=== PATIENT | female | born 1990 | race Caucasian/White ===

== ENCOUNTER 2024-04-30 08:03 | Emergency (ER) | payer BC, SELFPAY ==
[2024-04-30 08:09] VITALS: BP 129/79; PULSE 85; RESP 18; TEMP 37.4; O2SAT 100
--- NOTE | 2024-04-30 08:17 | ED_ITS ---
HPI - Eye Problem General Chief complaint: Eye Problems Stated complaint: throat/right eye History of Present Illness HPI Narrative: Patient presents with the right eye problem itchy redness slight drainage to the corner of her eye. Does not were contacts no vision problems vision 2020 both eyes. With corrective glasses. Related Data Home Medications ?Medication ?Instructions ?Recorded ?Confirmed ?Last Taken ?Type sertraline 100 mg tablet mg 04/30/24 Unknown History Allergies Allergy/AdvReac Type Severity Reaction Status Date / Time No Known Allergies Allergy Verified 04/30/24 08:14 Review of Systems Review of Systems: CONSTITUTIONAL: Denies chills, or sweats. Reports fever and generalized body aches EYES: Denies visual changes, redness, or discharge. ENT: Denies otalgia. Reports nasal congestion runny nose and sore throat CARDIOVASCULAR: Denies chest pain, palpitations, or edema. RESPIRATORY: Denies dyspnea. Reports occasional cough GASTROINTESTINAL: Denies abdominal pain, nausea, vomiting, or diarrhea. GENITOURINARY: Denies dysuria or hematuria. SKIN: Denies rash or itching. MUSCULOSKELETAL: Denies back pain, joint pain, or myalgia. Reports generalized body aches NEUROLOGIC: Denies headache, numbness, or weakness. PSYCHIATRIC: Denies anxiety or depression. PMFSH Comments At time of signature, agree with nursing past medical, surgical, social and family history. There is no relevant family history pertinent to the presenting complaint Exam Narrative: The patient is a well-developed, well-nourished in no acute distress. SKIN: Skin is warm and dry without erythema, swelling or exudate. There is good turgor. No tenting. HEAD: Atraumatic. Normocephalic. No temporal or scalp tenderness. EYES: Moist and bright. Sclera and conjunctivae normal. No discharge. PERRLA. Extraocular motions intact. Gross visual acuity intact. EARS: Pinna is normal shape and contour. Clear external auditory canals. TM pearly gomez with good cone of light, no erythema or suppuration. Bilateral cerumen noted no gross hearing deficit. NOSE: pink, moist mucosa with good air movement. Clear rhinorrhea without nasal flaring. Septum midline. Mouth: moist mucous membranes. THROAT; mild erythema noted to posterior oropharynx with moderate postnasal drainage. Without exudate or ulceration.. Uvula midline. Normal movement of soft palate. NECK: Supple and nontender with full range of motion without discomfort. No meningeal signs. LUNGS: Equal and bilateral breath sounds without wheezes, rales or rhonchi. CHEST: The chest wall is without retractions or use of accessory muscles. HEART: Has a regular rate and rhythm without murmur, gallops, click or rub. ABDOMEN: Soft, nontender with positive active bowel sounds. No rebound tenderness. EXTREMITIES: Without cyanosis, clubbing or edema. Equal 2+ distal pulses and 2 second capillary refill noted. NEUROLOGIC: alert, active, . The patient moves all extremities with normal muscle strength. Normal muscle tone is noted. Normal coordination is noted. NO focal neurological findings noted. Eyes: Conjunctivae: conjunctival abnormality right conjunctival injection and discharge purulent Course Course Level of Care: Express Care Visit Vital Signs Vital signs: Vital Signs Temperature 37.4 C 04/30/24 08:09 Pulse Rate 85 04/30/24 08:09 Respiratory Rate 18 04/30/24 08:09 Blood Pressure 129/79 04/30/24 08:09 Pulse Oximetry 100 04/30/24 08:09 Oxygen Delivery Room Air 04/30/24 08:09 Temperature 37.4 C 04/30/24 08:09 Pulse Rate 85 04/30/24 08:09 Respiratory Rate 18 04/30/24 08:09 Blood Pressure 129/79 04/30/24 08:09 Pulse Oximetry 100 04/30/24 08:09 Oxygen Delivery Room Air 04/30/24 08:09 Discharge Plan Discharge Clinical Impression: Bacterial conjunctivitis Patient Disposition: Home, Self-Care Condition: Stable Instructions: Conjunctivitis (ED) Additional Instructions: Conjunctivitis is spread by [id number]-[id number] contact or by touching a contaminated surface. You can use artificial tears, cold and warm compresses-use, different compress for each eye, and increase hygiene such as hand-washing. Do not wear contacts for 1 week, if applicable. Do not return for 24 hours to daycare, school, workplace for 24 hours after first antibiotic dose. Change bedding. follow up with eye doctor in 24-48 hours -If you have any worsening of symptoms or any other concerns please go to the ED immediately. Patient Language: Luxembourger Prescriptions: New ofloxacin [Ocuflox] 0.3 % drops 2 drp RIGHT EYE QID Qty: 5 0RF fluticasone propionate 50 mcg/actuation spray,suspension 2 spray NASAL DAILY 14 Days Qty: 9.9 0RF Rx Instructions: administer into each nostril Zyrtec 10 mg capsule 10 mg PO DAILY 14 Days Qty: 14 0RF No Action sertraline 100 mg tablet Follow-up/Referrals: PHYSICIAN NOT ON STAFF,NONSTAFF [Primary Care Provider] -
--- OUTSIDE RECORDS SUMMARY | 2024-05-04 16:50 | XMS_ITS | Referral Summary ---
Author Organization [facility] Address [address] [place] [address] Care Team Providers Care Nuclear Operator Name Role Phone Deb Montenegro MD Primary Care Provider [phone] Source Comments [facility],non-owned Affiliates and Associated Physician Practices is amultiple site organization consisting of ambulatory clinics and hospital sitesin [place], [place], [place] and [place]. This disclosure is being madepursuant to the Care Everywhere program and may not contain all information available regarding this patient. Last updated 18.[facility] Encounters Date Type Department Care Team Description 04/21/2024 Telephone [facility] Medicine [address] [place] [address] [address] [place] [phone] Flaco Rosales MD Surgery Scheduling 04/18/2024 Refill [facility] [address] [facility] [place] [place] [address] Deb Montenegro MD Refill Request 04/17/2024 Telephone [facility] [address] [facility] [place] [place] [phone] Flaco Rosales MD Appointment 04/05/2024 3:15 PM CENTRIFUGAL SUPERVISOR Office Visit [facility] [address] [facility] [address] [place] [phone] Flaco Rosales MD Well woman exam with routine gynecological exam (Primary Dx); Mass of lower outer quadrant of left breast from Last 3 Months Allergies No known active allergies Medications * Be aware that medications may not be up to date on this document. Alwaysverify current medications with the patient. Medication Sig Dispensed Refills Start Date End Date Status Multiple Vitamins-Mineral s (MULTIVITAMIN ADULT PO) 1 gummy vitamin daily Active dicyclomine (Bentyl) 10 MG capsuleIndicatio ns:Nausea and vomiting, unspecified vomiting type Take 1 (one) capsule by mouth 4 times daily 120 capsule 1 05/19/2022 Active Additional Information Patient not taking.Reported on 04/05/2024 Loryna 3-0.02 MG tablet TAKE ONE TABLET BY MOUTH DAILY 1 packet 05/21/2023 Active Additional Information Patient not taking.Reported on 04/05/2024 sertraline (Zoloft) 100 MG tabletIndication s:CASSIDY (generalized anxiety disorder) Take 1 (one) tablet by mouth once daily 90 tablet 04/19/2024 Active sertraline (Zoloft) 100 MG tabletIndication s:CASSIDY (generalized anxiety disorder) Take 1 (one) tablet by mouth once daily 90 tablet 1 05/19/2023 04/19/20 24 Discontinued Active Problems Problem Noted Date Diagnosed Date Well woman exam with routine gynecological exam 04/05/2024 Overview (04/05/2024): Complaints: left breast lesion Contraception: OCP's, wants permanent sterilization Pap Results No recent doc pap Mammogram Results No previous mammogram Assessment & Plan (04/05/2024 3:18 PM CENTRIFUGAL SUPERVISOR): Reviewed cervical cancer pathophysiology as well as screening and prevention guidelines Pap collected When discussing contraceptive options, the patient expressed her strong desire to more forward with permanent sterilization. I reviewed with her the surgical approach, which, in accordance with ACOG recommendations, involves removing both tubes in their entirety as a means to reduce ovarian cancer incidence while also providing permanent sterilization. I extensively reviewed with the patient the permanence and irreversibility of this procedure thus preventing any future, natural conception. Questions and concerns were elicited and addressed. The patient verbalized understanding of the procedure and its permanence, and again expressed her intentions to proceed with a bilateral salpingectomy. Will obtain a dx mammo with U/S for breast complaint Contraceptive education 05/15/2022 Overview (05/15/2022): Patient wants to discuss contraceptive options She is currently on Junel, but is having mood issues She is or is not: is sexually active Her periods are regular Assessment & Plan (05/15/2022 12:46 PM CENTRIFUGAL SUPERVISOR): The patient was counseled regarding all options for contraception, including LARCs After consideration, the patient wishes to proceed with Hanane Rx sent Personal history of kidney stones 05/13/2022 Nausea and vomiting 05/13/2022 CASSIDY (generalized anxiety disorder) 05/13/2022 H/O repair of patent ductus arteriosus Overview (05/13/2022): at age 5 S/P repair of coarctation of aorta 05/13/2022 Overview (05/13/2022): at age 5 Normal , first 12/24/2014 Gestational hypertension 12/24/2014 Scoliosis 09/04/2014 Immunizations Name Administration Dates Next Due INFLUENZA VACCINE, QUADR. (F LUZONE; FLULAVAL; FLUARIX; AFLURIA QUADRIVALENT; 6MO+), 0.5 ML (IIV4) 03/14/2018 TDAP (7yrs+) 12/26/2014 iNFLUENZA VACCINE, RECOM-TORRES, QUADR. (FLUBLOCK QUADRIVALENT; 18Y+) (RIV4) 03/01/2019 Social History Tobacco Use Types Packs/Day Years Used Date Smoking Tobacco: Every Day Cigarettes 0.3 6 Smokeless Tobacco: Never Tobacco Cessation:Ready to Q uit: Not Asked; Counseling Given: Not Answered Comments:3 cigarettes daily Alcohol Use Standard Drinks/Week Comments No 0 (1 standard drink = 0.6 oz pur e alcohol) PHQ-2 Answer Date Recorded Patient Health Questionnaire-2 Score 0 04/04/2024 Sex and Gender Information Value Date Recorded Sex Assigned at Not on file Gender Identity Not on file Sexual Orientation Not on file Last Filed Vital Signs Vital Sign Reading Time Taken Comments Blood Pressure 120/76 04/05/2024 2:59 PM CENTRIFUGAL SUPERVISOR Pulse 103 07/15/2022 8:20 AM CENTRIFUGAL SUPERVISOR Temperature 36.4 ??C (97.6 ??F) 07/15/2022 8:20 AM CS T Respiratory Rate 20 03/07/2018 3:42 PM CDT Oxygen Saturation 99% 07/15/2022 8:20 AM CENTRIFUGAL SUPERVISOR Inhaled Oxygen Concentration - - Weight 53.1 kg (117 lb) 04/05/2024 2:59 PM CENTRIFUGAL SUPERVISOR Height 167.6 cm (5' 6 ) 04/05/2024 2:59 PM CENTRIFUGAL SUPERVISOR Body Mass Index 18.88 04/05/2024 2:59 PM CENTRIFUGAL SUPERVISOR Functional Status Functional Status Response Date of Assess ment Is person deaf or have serious hearing difficult y? No 12/24/2014 Is person blind or have serious difficulty seein g? No 12/24/2014 Does person have serious dif ficulty walking/climbing stairs? No 12/24/2014 Does person have difficulty dressing/bathing? No 12/24/2014 Does person have difficulty doing errands alone? No 12/24/2014 Cognitive Status Response Date of Assessm ent Does person have difficulty concentrating/remembering/making decisions? No 12/24/2014 Plan of Treatment Upcoming Encounters Date Type Department Care Team (Late st Contact Info) Description 05/12/2024 9:30 AM CENTRIFUGAL SUPERVISOR Appointment [facility] Breast [address] [place] [address] Flaco Rosales MD [address] [place] [phone] 05/24/2024 7:00 AM CENTRIFUGAL SUPERVISOR Procedure visit [facility] [address] [place] [phone] 06/07/2024 9:45 AM CENTRIFUGAL SUPERVISOR Office Visit [facility] [address] [place] [phone] Flaco Rosales MD [address] [place], [place] [address], [place] [phone] 07/11/2024 12:00 PM CENTRIFUGAL SUPERVISOR Video Visit [facility] - Family Medicine [address] [facility] [place] [place] [address] Deb Montenegro MD [address] [place] [phone] Procedures Procedure Name Priority Date/Time Associated Diagnosis Comments PAP IG LB RFLX HPV APTIMA ASCU Routine 04/05/2024 3:37 PM CENTRIFUGAL SUPERVISOR Well woman exam with routine gynecological exam HIV-1 HIV-2 ANTIBODY + HIV P24 AG PANEL Routine 05/14/2022 11:17 AM CENTRIFUGAL SUPERVISOR Encounter for screening for HIV HEPATITIS C ANTIBODY Routine 05/14/2022 11:16 AM CENTRIFUGAL SUPERVISOR Encounter for hepatitis C screening test for low risk patient from Last 3 Months or Most Recently Relevant to Health Maintenance Results * PAP IG LB RFLX HPV APTIMA ASCU (04/05/2024 3:37 PM CENTRIFUGAL SUPERVISOR) Diagnosis Comment [facility] ACCOUNT BILL Comment:NEGATIVE FOR INTRAEP ITHELIAL LESION OR MALIGNANCY. Specimen Adequacy Comment [facility] ACCOUNT BILL Comment: Satisfactory for evaluation. ??Endocervical and/or squamous metaplastic cells (endocervical component) are present. Clinician Provided ICD10 Comment [facility] ACCOUNT BILL Comment:Z01.419 Performed by Comment [facility] ACCOUNT BILL Comment:Brown Molina totechnologist Comment . [facility] ACCOUNT BILL Note Comment [facility] ACCOUNT BILL Comment: The Pap smear is a screening test designed to aid in the detection of premalignant and malignant conditions of the uterine cervix. ??It is not a diagnostic procedure and should not be used as the sole means of detecting cervical cancer. ??Both false-positive and false-negative reports do occur. IGLBP CPT Code Automation Comment [facility] ACCOUNT BILL Comment: This liquid based ThinPrep(R) pap test was screened with the use of an image guided system. Note Comment [facility] ACCOUNT BILL Comment: The HPV DNA reflex criteria were not met with this specimen result therefore, no HPV testing was performed. Pathology/Cytolog y PART OF UTERINE CERVIX / Unknown 04/05/2024 3:37 PM CENTRIFUGAL SUPERVISOR 04/05/2024 Comment:Cervix Release to pa t Narrative [facility] ACCOUNT BILL - 04/12/2024 11:13 AM CENTRIFUGAL SUPERVISOR Performed at: ??01 - [facility] [place] [place], [place] ??[id number] Parts Clerk Plant Maintenance: Keena Montejo MD, Phone: ??[phone] Specimen Comment: [id number] Specimen Comment: No. of containers..01 ThinPrep Vial Flaco Rosales MD LAB - PATHOLOGY/CYTO LOGY ORDERABLES Performing Organization Address City/[facility]/ZIP Co de Phone Number [facility] ACCOUNT BILL [address] [place] [address] * HIV-1 HIV-2 ANTIBODY + HIV P24 AG PANEL (05/14/2022 11:17 AM CENTRIFUGAL SUPERVISOR) HIV Screen 4th Generation w Reflex Non Reactive Non Reactive [facility] ACCOUNT BILL Comment: HIV Negative HIV-1/HIV-2 antibodies and HIV-1 p24 antigen were NOT detected. There is no laboratory evidence of HIV infection. FASTING Blood BLOOD SPECIMEN / Unknown 05/14/2022 11:17 AM CENTRIFUGAL SUPERVISOR 05/14/2022 Narrative Resulting Agency Comment Lab Testing performed at: [facility] [address] [facility] ??[facility] [phone] Deb Montenegro MD LAB - CHEMISTRY CASSY SMITH Performing Organization Address [facility] Co de Phone Number [facility] ACCOUNT BILL [address] [place] [address] * HEPATITIS C ANTIBODY (05/14/2022 11:16 AM CENTRIFUGAL SUPERVISOR) Hepatitis C Antibody Non Reactive Non Reactive [facility] ACCOUNT BILL Comment: Non Reactive - Antibodies to Hepatitis C virus (HCV) were no t detected, result does not exclude early acute HCV infection. FASTING Blood BLOOD SPECIMEN / Unknown 05/14/2022 11:16 AM CENTRIFUGAL SUPERVISOR 05/14/2022 Narrative Resulting Agency Comment Lab Testing performed at: [facility] [address] [facility] ??[facility] [phone] Deb Montenegro MD LAB - CHEMISTRY CASSY SMITH [facility] ACCOUNT BILL [address] [place] [address] from Last 3 Months or Most Recently Relevant to Health Maintenance Advance Directives * Full Code (Latest Code Status on File) Date Activated Date Inactivated Comments 12/25/2014 9:19 AM 12/28/2014 1:18 PM * Full Code Date Activated Date Inactivated Comments 12/24/2014 10:06 AM 12/25/2014 9:19 AM Care Teams Nuclear Operator Relationship Specialty Start Date End Date Deb Montenegro MD [address] [place] [phone] PCP - General Family Medicine 05/13/22
--- OUTSIDE RECORDS SUMMARY | 2024-05-04 16:50 | XMS_ITS | Encounter Summary ---
Author Organization [facility] Address [address] [place] [address] Care Team Providers Care Estimator Binding Name Role Phone Evelyn Beach Mylene RAPHAEL-EMBEDDED CASE MANAGER Primary Care Provider [phone] Reason for Referral * Procedure (Routine) - Closed Specialty Diagnoses / Procedures Referred By Contac t Referred To Contact Cardiology Diagnoses Coarctation of aorta (preductal) (postductal) (HCC) Procedures EKG 12-LEAD Volodymyr Salmon MD [address] [facility] [facility] [address] [place] [address] Referral ID Status Reason Start Date Expiration Date Visits Re quested Visits Authorized [id number] Closed 03/20/2019 09/16/2019 1 1 SPECIALTY SERVICES MANAGER Reason for Visit * Reason Comments Establish Care Encounter Details Date Type Department Care Team (Late st Contact Info) Description 03/20/2019 9:30 AM AUTO SPECIALTY SERVICES MANAGER Office Visit [facility] [address] [facility] [place] [address] Volodymyr Salmon MD [address] [facility] [facility] [address] [place] [address] Coarctation of aorta (preductal) (postductal) (HCC) (Primary Dx); S/P repair of PDA; Chest pain, unspecified type Social History Tobacco Use Types Packs/Day Years Used Date Smoking Tobacco: Every Day Cigarettes 0.3 6 Smokeless Tobacco: Never Tobacco Cessation:Ready to Q uit: Yes; Counseling Given: Yes Comments:3 cigarettes daily Alcohol Use Standard Drinks/Week Comments No 0 (1 standard drink = 0.6 oz pur e alcohol) Sex and Gender Information Value Date Recorded Sex Assigned at Not on file Gender Identity Not on file Sexual Orientation Not on file documented as of this encounter Last Filed Vital Signs Vital Sign Reading Time Taken Comments Blood Pressure 122/86 03/20/2019 9:43 AM AUTO SPECIALTY SERVICES MANAGER Pulse 108 03/20/2019 9:43 AM AUTO SPECIALTY SERVICES MANAGER Temperature 36.9 ??C (98.5 ??F) 03/20/2019 9:43 AM CS T Respiratory Rate - - Oxygen Saturation 93% 03/20/2019 9:43 AM AUTO SPECIALTY SERVICES MANAGER Inhaled Oxygen Concentration - - Weight 64 kg (141 lb) 03/20/2019 9:43 AM AUTO SPECIALTY SERVICES MANAGER Height 165.1 cm (5' 5 ) 03/20/2019 9:43 AM AUTO SPECIALTY SERVICES MANAGER Body Mass Index 23.46 03/20/2019 9:43 AM AUTO SPECIALTY SERVICES MANAGER documented in this encounter Functional Status Functional Status Response Date of [...] person have difficulty concentrating/remembering/making decisions? No 12/24/2014 documented as of this encounter Patient Instructions * Patient Instructions* Sena Velazquez LPN - 03/20/2019 10:11 AM AUTO SPECIALTY SERVICES MANAGER Per Dr. Salmon, Your CTA of chest is scheduled for : 03/29/19 [facility] Patient Entrance Arrival time: 915 am ?? Nothing to eat or drink 4 hours prior to test. ?? Force fluids the day before the test. Your Echocardiogram has been scheduled to follow. No special preparations needed. If you need to reschedule your testing, you can call [phone]. After you have rescheduled your test, call our office at [phone] to notify our office of your new test date and time. Follow up in 1-2 weeks after testing. SPECIALTY SERVICES MANAGER documented in this encounter Progress Notes * Volodymyr Salmon MD - 03/20/2019 9:56 AM CST Images from the original note were not included. [facility] Volodymyr Salmon MD 03/20/2019 Karla Castaneda 29 year old female 1990 REQUESTING PROVIDER: Evelyn Beach APRN-EMBEDDED CASE MANAGER CHIEF COMPLAINT: Karla Castaneda is a 29 year old female who presents for follow up of the below complaints: Coarctation of aorta (preductal) (postductal) S/P repair of PDA Chest pain, unspecified type HISTORY: She has a history of surgical repair of a coarctation of the aorta along with ligation of a patent ductus arteriosus who presents to reestablish care. She exercises on a regular basis and is able to do so without chest pain shortness of breath or symptoms of claudication. She reports, however, that a couple of weeks ago while lying in bed she developed a sharp stabbing pain underneath her left breast that lasted for approximately 30 sec without aggravating alleviatingcircumstances nor other any associated symptoms. She has not had a recurrence. REVIEW OF SYSTEMS: A 14 point review of systems was reviewed and was negative except that mentioned in the HPI and thefollowing: Night sweats, she wears glasses, irritable bowel syndrome. No current facility-administered medications for this visit. Prior to Admission medications Medication Sig Start Date End Date Taking? Authorizing Provider MV-Min-Fe Fum-FA-DHA ( 1 PO) Take 1 Tab by mouth once daily. Yes Historical Provider, docusate sodium (COLACE) 100 MG capsule Take 100 mg by mouth once daily. Historical Provider, No Known Allergies Past Medical History: Diagnosis Date ??? H/O repair of patent ductus arteriosus at age 5 ??? Kidney stones last time she passed one was one year ago ??? S/P repair of coarctation of aorta at age 5 ??? Scoliosis Past Surgical History: Procedure Laterality Date ??? OTHER SURGERY 1993 open heart surgery to repair PDA and coarctation of aorta Social History Socioeconomic History ??? Marital status: Spouse name: Not on file ??? Number of children: Not on file ??? Years of education: Not on file ??? Highest education level: Not on file Occupational History ??? Not on file Social Needs ??? Financial resource strain: Not on file ??? Food insecurity: Worry: Not on file Inability: Not on file ??? Transportation needs: Medical: Not on file Non-medical: Not on file Tobacco Use ??? Smoking status: Current Every Day Smoker Packs/day: 0.25 Years: 6.00 Pack years: 1.50 Types: Cigarettes ??? Smokeless tobacco: Never Used ??? Tobacco comment: 3 cigarettes daily Substance and Sexual Activity ??? Alcohol use: No ??? Drug use: No ??? Sexual activity: Not on file Lifestyle ??? Physical activity: Days per week: Not on file Minutes per session: Not on file ??? Stress: Not on file Relationships ??? Social connections: Talks on phone: Not on file Gets together: Not on file Attends catholic service: Not on file Active member of club or organization: Not on file Attends meetings of clubs or organizations: Not on file Relationship status: Not on file ??? Intimate partner violence: Fear of current or ex partner: Not on file Emotionally abused: Not on file Physically abused: Not on file Forced sexual activity: Not on file Other Topics Concern ??? Special Diet Not Asked Social History Narrative ??? Not on file There is no family history of premature coronary artery disease in first degree relatives. EXAMINATION: BP 122/86 (BP SITE: LEFT ARM, BP POSITION: SITTING, BP CUFF SIZE: 11) Pulse 108 Temp 98.5 ??F (36.9??C) (Oral) Ht 1.651 m (5' 5 ) Wt 64 kg (141 lb) SpO2 93% BMI 23.46 kg/m2 CONSTITUTIONAL: Well developed female in no acute distress. EYES: Extra ocular movements intact, no conjunctival erythema or exudate, pupils are reactive to light. She is wearing glasses. ENTM: External auditory canals are normal, nares are moist and without exudate, throat is without exudate or erythema, oral mucosa is moist. NECK: No thyromegaly or lymphadenopathy. CARDIO: S1S2, RRR, no murmurs, gallops, or rubs, no JVD, no carotid bruits. There are strong bilateral radial artery and femoral artery pulses. RESP: Lungs clear to auscultation bilaterally. Chest wall is normal to palpation and percussion. The respiratory effort is normal. ABDOMEN: Soft, non-tender to palpation, normal bowel sounds. MUSCULOSKELETAL: No kyphosis or scoliosis. SKIN: No rashes or stasis ulcers. EXTREMITIES: No clubbing, cyanosis, or edema. PSYCH: Normal mood and affect, alert and oriented. DATA REVIEW: Recent Labs Component Name 03/07/18 1616 12/26/14 0614 12/25/14 0423 WBC 7.6 17.2* 8.0 HGB 15.5 10.8* 10.2* HCT 45.1* 32.4* 30.6* PLTCOUNT 235 215 222 Recent Labs Component Name 03/07/18 1616 12/25/14 0423 12/24/14 1017 SODIUM 137 136 136 POTASSIUM 3.9 3.7 4.1 CHLORIDE 109* 108* 109* CO2 17* 19* 19* BUN 10.9 8.0* 8.1* CREATININE 0.74 0.65 0.66 GLUCOSE 87 75 78 ECHO 09/14/14: - Clinical question: History of aortic coarctation repair - Left ventricle: Size was normal. Systolic function was normal. Ejection fraction was estimated to be 60 %. There were no regional wall motion abnormalities. - Aortic valve: The valve was trileaflet. Leaflets exhibited normal cuspal separation. There was trace aortic valve regurgitation. - Aorta, systemic arteries: The ascending aorta was normal in size. The aortic arch was normal in size. There was no evidence for dissection. There was no evidence for aneurysm. There was residual coarctation following surgical repair. The gradient was 29 mmHg. Clinical question: History of aortic coarctation repair EKG, performed in the office June 20, 2018, reviewed: Normal sinus rhythm. Records reviewed from her previous border inspector documenting her past surgical history as well as a recommendation that she follow-up with a border inspector to monitor her for the development hypertension as well as her opinion that she did not need bacterial endocarditis prophylaxis. ASSESSMENT AND PLAN: Coarctation of the aorta, status post repair: She is concerned about her chest discomfort perhaps being a sign that there is a problem with cor taken repair therefore a CT angiogram of the aorta has been requested for further evaluation and she has agreed. Her blood pressure in her left arm was 116/82, blood pressure right arm 124/84. She will notify us for recurrence. Status post PDA repair: An echocardiogram has been requested for further evaluation and she has agreed. Chest pain: A CT angiogram the chest has been requested for further evaluation she has agreed. Smoking: We will discuss cessation at follow-up. She will follow up after testing. Volodymyr Salmon MD Residential Substance Abuse Counselor [facility] [place] 03/20/2019 10:19 AM SPECIALTY SERVICES MANAGER documented in this encounter Plan of Treatment Upcoming Encounters Date Type Department Care Team (Late st Contact Info) Description 05/12/2024 9:30 AM AUTO SPECIALTY SERVICES MANAGER Appointment [address] [place] [address] Flaco Rosales MD [address] [place] [phone] 05/24/2024 7:00 AM AUTO SPECIALTY SERVICES MANAGER Procedure visit [facility] - INTERNET ARCHITECT [address] [place] [phone] 06/07/2024 9:45 AM AUTO SPECIALTY SERVICES MANAGER Office Visit [facility] - INTERNET ARCHITECT [address] [place] [address] Flaco Rosales MD [address] [place] [phone] 07/11/2024 12:00 PM AUTO SPECIALTY SERVICES MANAGER Video Visit [facility] - Family Medicine [address] [facility] [address] [place] [place] [address] Deb Montenegro MD [address] [phone] documented as of this encounter Procedures Procedure Name Priority Date/Time Associated Diagnosis Comments EKG 12-LEAD Routine 03/20/2019 Coarctation of aorta (preductal) (postductal) ([facility]) documented in this encounter Results * EKG 12-LEAD (03/20/2019) Volodymyr Salmon MD ECG ORDERABLES documented in this encounter Visit Diagnoses Diagnosis Coarctation of aorta (preductal) (postductal) (HCC)- Primary Coarctation of aorta (preductal) (postductal) S/P repair of PDA Other postprocedural status Chest pain, unspecified type documented in this encounter Care Teams Estimator Binding Relationship Specialty Start Date End Date Evelyn Beach, CAR BODY MECHANIC-EMBEDDED CASE MANAGER [address] [place] [address] PCP - General Nurse Practitioner 03/07/18 05/12/22 documented as of this encounter
--- OUTSIDE RECORDS SUMMARY | 2024-05-04 16:50 | XMS_ITS | Encounter Summary ---
Author Organization [facility] Address [address] [place] [address] Care Team Providers Care Supply Chain Generalist Name Role Phone Sena Moreno [facility] Primary Care Provider [phone] Reason for Visit * Auth/Cert - Closed Specialty Diagnoses / Procedures Referred By Contac t Referred To Contact Diagnoses Hypertension in , antepartum, third trimester (HCC) Referral ID Status Reason Start Date Expiration Date Visits Re quested Visits Authorized [id number] Closed 1 1 Encounter Details Date Type Department Care Team (Late st Contact Info) Description 12/25/2014 4:48 PM CDT Anesthesia Event [facility] [address] [place] [address] Fahad Coles MD [address] [place] [address] Anesthesia Record Procedure Summary Procedure Name Responsible Anesthesiologist Anesthesia Start Time Anesthesia Stop Time EPIDURAL BLOCK Fahad Coles MD 12/25/14 164 8 12/25/14 2351 Events Date Time Event Comment 12/25/2014 1647 1648 An Start 1648 PT Reassessment Patient and Vital Signs reassessed prior to induction. 1648 Out OR Start Data 1648 Elect Sign The providers l isted as staff are the responsible providers for the case. 1700 Out OR Stop Data 2351 An Stop 12/26/2014 0540 Handoff Handoff include d discussion of Intraoperative anesthetic management, issues, concerns and expectations/plans for the early post-procedure period. There was an opportunity for questions and the receiving team acknowledged understanding of the handoff. Meds Name Total lidocaine 1.5% - epinephrine 1:200,000 ( epidural tray NO CHARGE) 3 mL lidocaine 1% PF injection (10 mg/mL) 3 m L bupivacaine PF (MARCAINE PF) 0.25 % inje ction 10 mL * Agents No agents on file. * Blood No blood administrations on file. Lines, Drains, and Airways Type Details Placement Removal Peripheral IV Date: 12/25/14; Time : 0950; Orientation: Right; Placed By: Jesse Brumfield RN; Tolerance: Well 12/25/14 0950 by Elisha Lynne, MASSAGE THERAPY INSTRUCTOR-CRIMINAL JUSTICE TEACHER 12/28/14 0815 by Karla Avalos RN Urethral Catheter 12/25/14; 1024; pantera Ga RN; 16; Well; 12/25/14; 2329; Wang Mehta RN 12/25/14 1024 by Elisha Lynne, MASSAGE THERAPY INSTRUCTOR-CRIMINAL JUSTICE TEACHER 12/25/14 2329 by Dennis Mehta RN Epidural Date: 12/25/14; Time : 1655; Placed By: Sharyn DUKE 12/25/14 1655 by Fahad Coles MD 12/26/14 0100 by Dennis Mehta RN documented in this encounter Social History Tobacco Use Types Packs/Day Years Used Date Smoking Tobacco: Former Cigarettes 0.3 6 Smokeless Tobacco: Never Alcohol Use Standard Drinks/Week Comments No 0 (1 standard drink = 0.6 oz pur e alcohol) Comments Yes Sex and Gender Information Value Date Recorded Sex Assigned at Not on file Gender Identity Not on file Sexual Orientation Not on file documented as of this encounter Functional Status Functional Status Response [...] No 12/24/2014 documented as of this encounter Progress Notes * Elvia Masterson APRN-BUFFET ATTENDANT - 12/26/2014 5:40 AM CDT ANESTHESIA POSTPROCEDURE EVALUATION Karla Castaneda is a 24 y.o. female Temp: 36.9 ??C Pulse: 75 Resp: 16 BP: 149/91 mmHg SpO2: 98 % Pain Rating Score #1: 2 Anesthesia Type: epidural Mental status: sufficiently recovered from acute administration of anesthesia to participate in theevaluation. Level of consciousness: awake No numbness, tingling or visual disturbances present. General appearance: well-appearing Respiratory function: natural airway. Cardiac: stable Pain: comfortable/acceptable PONV: None Postop hydration: adequate. Patient may be released from anesthesia care. documented in this encounter Procedure Notes * Fahad Coles MD - 12/25/2014 4:59 PM CDTAssociated Order(s): NEURAXIAL BLOCK NEURAXIAL BLOCK Patient Location: OB Pre Procedure Indication: at patient's request and labor analgesia Anticoagulation /Antithrombosis Status Confirmed: Yes Preanesthetic Checklist: patient identified, IV checked, site marked, risks and benefits discussed,surgical consent verified, monitors and equipment checked, pre-op evaluation done, timeout performed, informed consent obtained and questions answered / anesthesia plan accepted Monitors: BP and Pulse Ox Patient Condition: awake Patient Position: sitting Procedure Block Performed: epidural Prep: Betadine Sterile Field: sterile gloves, sterile field established, cap/hat and mask Approach: midline Skin Numbed with: lidocaine 1% Epidural Needle Type: Tuohy Needle Gauge: 17 Needle Length: 9 cm Placement Site: L2-L3 Number of Attempts: 1 Loss of ResistanceTechnique: saline Catheter Length at Skin: 12 cm CSF Aspirated from Catheter: negative Blood Aspirated from Catheter: negative Test Dose: lidocaine 1.5% with 1 200 k epinephrine 3 ml Test Dose Response: negative Local Anesthetic: bupivacaine 0.25% 10 ml Events CSF return negative injection not painful no paresthesia no other event Degree of Difficulty: none Position Post Procedure: supine Vital signs monitored and stable throughout. See Anesthesia Intraop record for details. Block Performed by: Sharyn DUKE documented in this encounter Consult Notes * Fahad Coles MD - 12/25/2014 4:47 PM CDT Pre-anesthesia Evaluation Procedure(s): EPIDURAL BLOCK Vital Signs: Temp: 37 ??C (12/25 1149) Pulse: 67 (12/25 0703) Resp: 16 (12/25 1149) BP: 158/94 mmHg (12/25 1604) SpO2: 98 % (12/25 0403) BMI: Estimated body mass index is 30.8 kg/(m^2) as calculated from the following: Height as of this encounter: 1.664 m (5' 5.5 ). Weight as of this encounter: 85.276 kg (188 lb). History: Past Medical History Diagnosis Date ??? H/O repair of patent ductus arteriosus at age 5 ??? S/P repair of coarctation of aorta at age 5 ??? Scoliosis ??? Kidney stones last time she passed one was one year ago Past Surgical History Procedure Laterality Date ??? Other surgery 1994 open heart surgery to repair PDA and coarctation of aorta reports that she has quit smoking. Her smoking use included Cigarettes. She has a 1.5 pack-year smoking history. She has never used smokeless tobacco. She reports that she does not drink alcohol or use illicit drugs. Allergies: has No Known Allergies. Medications: Home Medications for Outpatients: No current outpatient prescriptions on file. Home Medications for Inpatients: Prescriptions prior to admission Medication Sig Dispense Refill ??? MV-Min-Fe Fum-FA-DHA ( 1 PO) Take 1 Tab by mouth once daily. Inpatient Medications: Current Facility-Administered Medications Medication Dose Route Frequency Provider Last Rate Last Dose ??? magnesium sulfate infusion in sterile IV fluid 2 g/hr Intravenous Continuous Amos Leong MD 50 mL/hr at 12/25/14 1031 2 g/hr at 12/25/14 1031 ??? calcium gluconate 10 % injection 1 g 1 g Intravenous PRN Amos Leong MD ??? lactated ringers infusion Intravenous Continuous Amos Leong MD 75 mL/hr at 12/25/14 0950 ??? ampicillin IVPB 1 g 1 g Intravenous q4h Amos Leong MD 1 g at 12/25/14 1356 ??? oxytocin (PITOCIN) 30 units in 500 ml LR infusion 125-1,000 rosetta-units/min Intravenous CONTINUOUS PRN Amos Leong MD ??? ondansetron (ZOFRAN) injection 4 mg 4 mg Intravenous q6h PRN Amos Leong MD ??? misoprostol (CYTOTEC) tablet 25 mcg 25 mcg Vaginal q4h PRN Amos Leong MD 25 mcg at 12/25/14 1429 ??? terbutaline (BRETHINE) injection 0.25 mg 0.25 mg Subcutaneous PRN Amos Leong MD ??? *Hold/Avoid Medication Other 799 and 1999 Fahad Coles MD ??? *Hold/Avoid Anticoagulants and Antiplatelet agents Other 799 and 1999 Fahad Coles MD ??? lactated ringers iv bolus 1,000 mL Intravenous BOLUS IV Fahad Coles MD ??? lactated ringers infusion Intravenous Continuous Fahad Coles MD ??? fentanyl 5 mcg/ml and ropivicaine 0.2% epidural 12 mL/hr Epidural Continuous Fahad Coles MD ??? diphenhydrAMINE (BENADRYL) injection 25 mg 25 mg Intravenous q4h PRN Fahad Coles MD ??? naloxone (NARCAN) injection 0.2 mg 0.2 mg Intravenous q5 min PRN Fahad Coles MD ??? ePHEDrine injection 5 mg 5 mg Intravenous q5 min PRN Fahad Coles MD ??? bupivacaine PF (MARCAINE PF) 0.25 % injection Infiltration Once Fahad Coles MD Physical Exam: NPO status: no solids for 6 hours, continuous clear liquids Oriented to person, place and time Airway: II Neck ROM: full Dental exam findings: normal/ok Negative for anesthesia complications Reviewed labs Patient history unchanged. Other comments: Pre-eclampsia Plan for Anesthesia: ASA Score: 3. Anesthesia plan: epidural Planned postop destination: OB Anesthesia plan, risks and benefits discussed with patient Anesthesia consent: obtained Plan accepted yes Discussed anesthesia plan with: BUFFET ATTENDANT. documented in this encounter Plan of Treatment Upcoming Encounters Date Type Department Care Team (Late st Contact Info) Description 05/12/2024 9:30 AM PILOT INSTRUCTOR Appointment [place] [address] [place] [address] Flaco Rosales MD [address] [place] [address] [phone] 05/24/2024 7:00 AM PILOT INSTRUCTOR Procedure visit [facility] - CREDIT COORDINATOR [address] [place] [address] [phone] 06/07/2024 9:45 AM PILOT INSTRUCTOR Office Visit [facility] - CREDIT COORDINATOR [address] [place] [address] Flaco Rosales MD [address] [place] [address] [phone] 07/11/2024 12:00 PM PILOT INSTRUCTOR Video Visit [facility] - Family Medicine [address] [facility] [address] [place] [address] Deb Montenegro MD [address] [facility] [address] documented as of this encounter Procedures Procedure Name Priority Date/Time Associated Diagnosis Comments NEURAXIAL BLOCK Routine 12/25/2014 5:00 PM CDT documented in this encounter Results * NEURAXIAL BLOCK (12/25/2014 5:00 PM CDT) Narrative Fahad Coles MD - 12/25/2014 5:00 PM CDT Fahad Coles MD ? 12/25/2014 ??5:00 PM NEURAXIAL BLOCK Patient Location: ??OB Pre Procedure Indication: ??at patient's request and labor analgesia Anticoagulation /Antithrombosis Status Confirmed: Yes Preanesthetic Checklist: ??patient identified, IV checked, site marked, risks and benefits discussed, surgical consent verified, monitors and equipment checked, pre-op evaluation done, timeout performed, informed consent obtained and questions answered / anesthesia plan accepted Monitors: ??BP and Pulse Ox Patient Condition: ??awake Patient Position: ??sitting Procedure Block Performed: ??epidural Prep: ??Betadine Sterile Field: ??sterile gloves, sterile field established, cap/hat and mask Approach: ??midline Skin Numbed with: ??lidocaine 1% Epidural Needle Type: ??Tuohy Needle Gauge: 17 Needle Length: ??9 cm Placement Site: ??L2-L3 Number of Attempts: ??1 Loss of ResistanceTechnique: ??saline Catheter Length at Skin: ??12 cm CSF Aspirated from Catheter: ??negative Blood Aspirated from Catheter: ??negative Test Dose: ??lidocaine 1.5% with 1 200 k epinephrine 3 ml Test Dose Response: ??negative Local Anesthetic: ??bupivacaine 0.25% 10 ml Events CSF return negative injection not painful no paresthesia no other event Degree of Difficulty: ??none Position Post Procedure: ??supine Vital signs monitored and stable throughout. ??See Anesthesia Intraop record for details. Block Performed by: ??Sharyn DUKE Fahad Coles MD GENERAL ANESTHE INA ORDERABLES documented in this encounter Visit Diagnoses Not on filedocumented in this encounter Administered Medications Inactive Administered Medications - up to 3 most recent administrations Medication Order MAR Action Action Date Dose Rate Site bupivacaine PF (MARCAINE PF) 0.25 % injection Infiltration, ONCE, 1 dose, On Wed12/25/14 at 1645 $ Given 12/25/2014 4:54 PM CDT 10 mL lidocaine (XYLOCAINE MPF) 1 % injection PRN, Starting on Wed12/25/14 at 1652, Until Wed12/26/14 at 0540, Anesthesia Intra-op $ Given 12/25/2014 4:52 PM CDT 3 mL lidocaine 1.5% - epinephrine 1:200,000 injection PRN, Starting on Wed12/25/14 at 1655, Until Wed12/26/14 at 0540, Anesthesia Intra-op $ Given 12/25/2014 4:55 PM CDT 3 mL documented in this encounter Care Teams Supply Chain Generalist Relationship Specialty Start Date End Date Moreno, Sena, MASSAGE THERAPY INSTRUCTOR-CNM [address] [place] [phone] PCP - General Nurse Practitioner 09/13/14 03/06/18 documented as of this encounter
--- OUTSIDE RECORDS SUMMARY | 2024-05-04 16:50 | XMS_ITS | Encounter Summary ---
Author Organization [facility] Address [address] [facility] [place] [address] Care Team Providers [facility] Supervisor Name Role Phone Baylee Evelyn Chakraborty MASONRY INSTALLER-BLOW MOLD OPERATOR Primary Care Provider [phone] Reason for Visit * Reason Comments Pain Abdominal Encounter Details Date Type Department Care Team (Late st Contact Info) Description 03/07/2018 3:53 PM CDT - 03/07/2018 6:03 PM CDT Emergency ER at [facility] [address] [place] [address] Sheela Chung DO 1 [place], [place] [address] Enteritis (Primary Dx); Abdominal pain, right lower quadrant Discharge Disposition: Home or Self Care Social History Tobacco Use Types Packs/Day Years [...] Sign Reading Time Taken Comments Blood Pressure 107/85 03/07/2018 5:57 PM CDT Pulse 132 03/07/2018 3:42 PM CDT Temperature 36.4 ??C (97.6 ??F) 03/07/2018 3:42 PM CD T Respiratory Rate 20 03/07/2018 3:42 PM CDT Oxygen Saturation 100% 03/07/2018 5:58 PM CDT Inhaled Oxygen Concentration - - Weight 64.7 kg (142 lb 10.2 oz) 03/07/2018 3:50 PM CDT Height 165.1 cm (5' 5 ) 03/07/2018 3:50 PM CDT Body Mass Index 23.74 03/07/2018 3:50 PM CDT documented in this encounter Functional Status Functional [...] No 12/24/2014 documented as of this encounter Discharge Instructions * Discharge Instructions* Sheela Chung, - 03/07/2018 5:09 PM CDT Images from the original note were not included. Enteritis WHAT YOU NEED TO KNOW: Enteritis is inflammation of the small intestine. It may be caused by eating foods or drinking liquids contaminated with a virus, bacteria, or parasites. It may also be caused by certain medicines, damage from radiation, and medical conditions such as Crohn disease. DISCHARGE INSTRUCTIONS: Return to the emergency department if: ?? You cannot stop vomiting. ?? You have not urinated for 12 hours. Contact your healthcare provider if: ?? You have a fever over 101.5. ?? You have blood or mucus in your bowel movements. ?? You continue to vomit or have diarrhea for more than 3 days, even after treatment. ?? You have a dry mouth and eyes, you are urinating less than usual, and you feel dizzy when you stand up. ?? Your mouth or eyes are dry. You are not urinating as much or as often. ?? You are losing weight without trying. ?? You have questions or concerns about your condition or care. Medicines: ?? Medicines may be given to fight an infection caused by bacteria or a parasite. You may also needmedicines to slow or stop your diarrhea or vomiting. Do not take these medicines unless your healthcare provider say it is okay. Other medicines may be needed to treat medical conditions that are causing enteritis. ?? Take your medicine as directed. Contact your healthcare provider if you think your medicine is not helping or if you have side effects. Tell him of her if you are allergic to any medicine. Keep a list of the medicines, vitamins, and herbs you take. Include the amounts, and when and why you take them. Bring the list or the pill bottles to follow-up visits. Carry your medicine list with you in case of an emergency. Manage enteritis: ?? Eat foods that help to decrease symptoms. Limit or avoid foods and liquids that are high in sugar, fat, and fiber to help relieve diarrhea. It may be helpful to avoid lactose. Lactose is a type ofsugar that is found in milk products. You may be able to tolerate soups, broths, well-cooked vegetables, canned fruit, and baked or broiled meats. Ask your dietitian or healthcare provider if you should follow a special diet. You may need to avoid other foods if you have certain medical conditions such as celiac disease. ?? Drink liquids as directed. Ask how much liquid to drink each day and which liquids are best for you. It is important to prevent or treat dehydration. Even if you have been vomiting, suck on ice chips or take small sips of clear liquids often. Slowly increase the amount of clear liquids you drink. If you become dehydrated, you may need IV liquids. ?? Drink an oral rehydration solution (ORS) as directed. An ORS contains water, salts, and sugar that are needed to replace lost body fluids. Ask what kind of ORS to use, how much to drink, and whereto get it. Prevent enteritis: Enteritis that is caused by bacteria, parasites, or viruses can be prevented. The following may help to prevent this type of enteritis: ?? Wash your hands often. Use soap and water. Wash your hands after you use the bathroom, change a child's diapers, or sneeze. Wash your hands before you prepare or eat food. ?? Clean surfaces and do laundry often. Wash your clothes and towels separately from the rest of the laundry. Clean surfaces in your home with antibacterial hospital cleaner or bleach. ?? Clean food thoroughly and cook safely. Wash raw vegetables before you cook. Cook meat, fish, andeggs fully. Do not use the same dishes for raw meat as you do for other foods. Refrigerate any leftover food immediately. ?? Be aware when you camp or travel. Drink only clean water. Do not drink from [place] or lakes unless you purify or boil the water first. When you travel, drink bottled water and do not add ice. Do not eat fruit that has not been peeled. Do not eat raw fish or meat that is not fully cooked. Follow up with your healthcare provider as directed: Write down your questions so you remember to ask them during your visits. ?? Copyright [employer] 2018 Information is for End User's use only and may not be sold, redistributed or otherwise used for commercial purposes. All illustrations and images included in CareNotes?? are the copyrighted property of [employer], [employer]. or [employer] The above information is an home care and home health aides teacher only. It is not intended as medical advice for individual conditions or treatments. Talk to your doctor, nurse or pharmacist before following any medical regimen to see if it is safe and effective for you. documented in this encounter Medications at Time of Discharge Medication Sig Dispensed Refills Start Date End Date ibuprofen (MOTRIN) 600 MG tablet Take 1 Tab by mouth every 6 hours 40 Tab 1 12/28/2014 07/15/2022 labetalol (NORMODYNE; TRANDATE) 100 MG tablet Take 1 Tab by mouth 3 times daily 90 Tab 0 12/28/2014 03/20/2019 ondansetron (ZOFRAN) 4 MG tablet Take 1 tablet by mouth every 6 hours as needed for Nausea/Vomiting 10 tablet 03/07/2018 03/20/2019 MV-Min-Fe Fum-FA-DHA ( 1 PO) Take 1 Tab by mouth once daily. 03/20/2019 documented as of this encounter ED Notes * Sheela Chung DO - 03/07/2018 3:57 PM CDT Provider contact with the patient: 03/07/2018 15:[id number] [facility] EMERGENCY [facility]PARTMENT History Chief Complaint Patient presents with ??? Pain Abdominal HPI Comments: 3:57 PM Karla Castaneda, a 28 y.o. female with a past medical history that includes--scoliosis and kidney stones--presents to the ER c/o umbilicus abdominal pain onset 7:30 AM. She is also complaining of lower back pain and nausea. The pt says that her pain is intermittent and rated as3/10 in severity. She denies any vomiting, diarrhea, constipation, dysuria, or frequent urination. The pt says that she was began to experience back pain last PM. When she woke up at 7:30 she began to experience abdominal pain that gradually increased in severity. The pt says that she ate a grilledcheese and pizza last PM. The pt says that she has a history of kidney stones, but denies that her s ymptoms are similar. No other complaints voiced at this time. PCP: WADE Vieyra Past Medical History: Diagnosis Date ??? H/O repair of patent ductus arteriosus at age 5 ??? Kidney stones last time she passed one was one year ago ??? S/P repair of coarctation of aorta at age 5 ??? Scoliosis Past Surgical History: Procedure Laterality Date ??? OTHER SURGERY 1994 open heart surgery to repair PDA and coarctation of aorta Family History Problem Relation Age of Onset ??? Heart Failure Maternal Grandmother ??? Diabetes Maternal Grandmother ??? Heart Failure Maternal Grandfather Social History Social History ??? Marital status: Spouse name: N/A ??? Number of children: N/A ??? Years of education: N/A Occupational History ??? Not on file. Social History Main Topics ??? Smoking status: Former Smoker Packs/day: 0.25 Years: 6.00 Types: Cigarettes ??? Smokeless tobacco: Never Used ??? Alcohol use No ??? Drug use: No ??? Sexual activity: Not on file Other Topics Concern ??? Not on file Social History Narrative No Known Allergies Review of Systems Review of Systems Constitutional: Negative for fever. Eyes: Negative. Respiratory: Negative for cough and shortness of breath. Cardiovascular: Negative for chest pain. Gastrointestinal: Positive for abdominal pain (umbilicus) and nausea. Negative for diarrhea and vomiting. Genitourinary: Negative. Negative for dysuria and frequency. Musculoskeletal: Positive for back pain (lower). Skin: Negative for rash. Neurological: Negative. Negative for headaches. All other systems reviewed and are negative. Physical Exam BP 147/99 Pulse (!) 132 Temp 97.6 ??F (36.4 ??C) Resp 20 Ht 1.651 m (5' 5 ) Wt 64.7 kg (142 lb 10.2 oz) SpO2 99% ? No BMI 23.74 kg/m2 Physical Exam Constitutional: She is oriented to person, place, and time. She appears well- developed and well-nourished. HENT: Head: Atraumatic. Nose: Nose normal. Mouth/Throat: Oropharynx is clear and moist. Eyes: Conjunctivae and EOM are normal. Pupils are equal, round, and reactive to light. No scleral icterus. Neck: Normal range of motion. No JVD present. Cardiovascular: Normal rate, regular rhythm and normal heart sounds. Pulses: Femoral pulses are 2+ on the right side, and 2+ on the left side. Pulmonary/Chest: Effort normal and breath sounds normal. Abdominal: Soft. Bowel sounds are normal. There is tenderness (right side of umbilicus). Musculoskeletal: Normal range of motion. She exhibits no edema or tenderness. Lymphadenopathy: She has no cervical adenopathy. Neurological: She is alert and oriented to person, place, and time. No cranial nerve deficit. She exhibits normal muscle tone. Skin: Skin is warm and dry. Psychiatric: She has a normal mood and affect. Nursing note and vitals reviewed. Medications Current Outpatient Prescriptions Medication Sig Dispense Refill ??? ondansetron (ZOFRAN) 4 MG tablet Take 1 tablet by mouth every 6 hours as needed for Nausea/Vomiting 10 tablet 0 ??? ibuprofen (MOTRIN) 600 MG tablet Take 1 Tab by mouth every 6 hours 40 Tab 1 ??? labetalol (NORMODYNE; TRANDATE) 100 MG tablet Take 1 Tab by mouth 3 times daily 90 Tab 0 ??? MV-Min-Fe Fum-FA-DHA ( 1 PO) Take 1 Tab by mouth once daily. Procedures Procedures ECG Interpretation ECG Interpretation Lab Interpretation Oxygen Saturation Interpretation The oxygen saturation level is: 99%. The patient was on Room Air for the saturation measurement. Measurement frequency: Spot Check. Oxygen saturation interpretation is Normal. Intervention(s) used: None. Hospital Encounter on 10/22/18 CBC W AUTO DIFFERENTIAL Result Value Ref Range WBC 7.6 4.0 - 10.0 x10E9/L RBC 4.97 3.93 - 5.22 x10E12/L Hemoglobin 15.5 11.2 - 15.7 gm/dL Hematocrit 45.1 (H) 34.1 - 44.9 % MCV 90.7 78.0 - 100.0 fl MCH 31.2 25.6 - 34.0 pg MCHC 34.4 32.3 - 36.5 gm/dL RDW 12.5 11.6 - 14.4 % MPV 9.7 9.4 - 12.4 fl Platelet Count 235 163 - 369 x10E9/L Immature Granulocytes 0.1 0 - 0.5 % Immature Granulocytes Absolute 0.01 0 - 0.03 x10E9/L nRBC Auto 0 <=0 /100 WBC COMPREHENSIVE METABOLIC PANEL Result Value Ref Range Glucose 87 70 - 125 mg/dL Sodium 137 136 - 145 mmol/L Potassium 3.9 3.4 - 4.5 mmol/L Chloride 109 (H) 98 - 107 mmol/L CO2 17 (L) 22 - 29 mmol/L Calcium 9.52 8.4 - 10.2 mg/dL Anion Gap 15 10 - 20 mmol/L BUN 10.9 9.8 - 20.1 mg/dL Creatinine 0.74 0.57 - 1.11 mg/dL eGFR by MDRD >60 >60 mL/min/1.73m2 eGFR by MDRD >60 >60 mL/min/1.73m2 Alkaline Phosphatase 43 40 - 150 U/L ALT 11 5 - 55 U/L AST 14 5 - 34 U/L Protein Total 7.7 6.4 - 8.3 gm/dL Albumin 4.5 3.5 - 5.0 gm/dL Globulin Total 3.2 2.6 - 4.0 gm/dL Albumin/Globulin Ratio 1.4 0.9 - 1.6 Bilirubin Total 1.3 (H) 0.2 - 1.2 mg/dL LIPASE BLOOD Result Value Ref Range Lipase 8 8 - 78 U/L PT PTT PANEL Result Value Ref Range PT 10.0 9.6 - 11.5 sec INR 0.99 (L) 2 - 3 PTT 23.6 (L) 24.0 - 32.0 sec URINALYSIS REFLEX MICROSCOPIC REFLEX CULTURE Result Value Ref Range Color UA Straw Straw, Yellow Clarity UA Clear Clear Glucose UA Negative Negative Bilirubin UA Negative Negative Ketone UA Negative Negative Specific [place] UA 1.010 1.005 - 1.030 Blood UA Negative Negative pH UA 5.0 5.0 - 8.0 pH Protein UA Negative Negative Urobilinogen UA Negative Negative mg/dL Nitrite UA Negative Negative Leukocyte UA Negative Negative Urine Microscopy Urine microscopy not indicated Reflex Status Culture not indicated DIFFERENTIAL MANUAL Result Value Ref Range WBC Auto 7.6 4.0 - 10.0 x10E9/L Neutrophils % Manual 88 (H) 40 - 75 % Lymphocytes % Manual 9 (L) 19 - 53 % Monocytes % Manual 3 (L) 5 - 13 % Neutrophils Absolute Manual 6.7 (H) 1.6 - 6.1 x10E3/uL Lymphs Abs Manual 0.7 (L) 1.2 - 3.7 x10E3/uL [place] Abs Manual 0.2 0.2 - 0.9 x10E3/uL Cells Counted 100 # cells Platelet Estimation Adequate platelets Normal, Adequate platelets RBC Morphology Normal WBC Morph Normal HCG URINE QUALITATIVE - POCT (IP) BEAKER - ILL Result Value Ref Range HCG Qual Urine Negative Negative Lot Number [id number] Expiration Date QC Verified Yes Yes CT ABDOMEN PELVIS W CONTRAST Final Result IMAGING STUDIES: CT ABDOMEN PELVIS W CONTRAST DATE: 03/07/2018 4:47 PM HISTORY: Lower abdominal pain COMPARISON: No comparisons CONTRAST: 75 mL Isovue-300 IV. No oral contrast. Radiation dose reduction technique was utilized. FINDINGS: The bowel gas pattern is nonobstructive with no free air or free fluid. The appendix is medial to the cecum and normal in size as is aorta. No hydronephrosis or hydroureter. Retroaortic left renal vein incidentally noted. Vascular structures patent. 1.1 x 1.2 x 0.9 cm cystic lesion in the right lobe of the liver likely represents benign cyst. The remainder the liver appears normal. No radiopaque gallstones. Spleen stomach and pancreas appear within normal limits. Anteflexed uterus and adnexal regions within normal limits. No definite lymphadenopathy. The lung bases are clear. Visualized portions of the lower chest unremarkable. Bones are intact. IMPRESSION 1. Multiple loops of fluid-filled small bowel possibly associated with enteritis. Adnexal regions appear grossly normal and the appendix is within normal limits. 2. 1.2 cm liver cystic lesion probably represents benign cyst. Also, incidental note of retroaortic left renal vein. Progress Notes 3:57 PM The pt was evaluated for abdominal pain surrounding his umbilicus. She is also complaining of nausea and lower back pain. She was informed of the plan to perform labs and a CT A/P. She will receive a 0.9% NaCl IV Bolus, 4 mg Zofran tablet, 4 mg Zofran injection, and a 4 mg morphine injection. 5:06 PM The pt was reassessed and she says that she is feeling better. The plan to d/c was discussed with the pt and she agrees with the plan. She was written a prescription for 4 mg Zofran tablets and instructed to follow-up with her PCP. I have reviewed the patient's medical history, problem list, home medications, and allergies. ED Course ED Course Medical Decision Making I have reviewed the: Nursing Notes, Vitals. I have interpreted the following results: Labs, CT Scans and Oxygen Saturation. Orders Placed This Encounter ??? CT ABDOMEN AND PELVIS WITH IV CONTRAST ??? CBC W AUTO DIFFERENTIAL ??? COMPREHENSIVE METABOLIC PANEL ??? LIPASE BLOOD ??? PT PTT PANEL ??? URINALYSIS REFLEX MICROSCOPIC REFLEX CULTURE ??? DIFFERENTIAL MANUAL ??? HCG URINE QUALITATIVE - POCT (IP) BEAKER - ILL ??? 0.9% NaCl IV Bolus ??? DISCONTD: iopamidol (ISOVUE 370) 76 % contrast ??? OR Linked Order Group ??? ondansetron (disintegrating) (ZOFRAN ODT) tablet 4 mg ??? ondansetron (ZOFRAN) injection 4 mg ??? morphine injection 4 mg ??? iopamidol (ISOVUE 300) 61 % contrast 20-120 mL ??? ondansetron (ZOFRAN) 4 MG tablet Diagnosis: Final diagnoses: Abdominal pain, right lower quadrant Enteritis (Primary) New Medications: Discharge Medication List as of 03/07/2018 5:53 PM START taking these medications Details ondansetron (ZOFRAN) 4 MG tablet Disp-10 tablet, R-0, Take 1 tablet by mouth every 6 hours as needed for Nausea/Vomiting, ePrescribe I have advised the patient to follow-up with: Evelyn Beach, MASONRY INSTALLER-BLOW MOLD OPERATOR [address] [place] [address] Disposition: Discharged By signing my name below, I, Meri Houser, attest that this documentation has been prepared under the direction and in the presence of John Chung DO. Electronically signed: Melissa Morrell. 03/07/2018. 6:15 PM I, Dr. Chung, personally performed the services described in this documentation. All medical record entries made by the scribe were at my direction and in my presence. I have reviewed the chart and agree that the record reflects my personal performance and is accurate and complete. John Chung DO.03/07/2018. 6:15 PM * Ivett Null RN - 03/07/2018 3:49 PM CDT Patient here with c/o nauseated, abdominal pain since this am. documented in this encounter Plan of Treatment Upcoming Encounters Date Type Department Care Team (Late st Contact Info) Description 05/12/2024 9:30 AM PROCESS WORKER Appointment [facility] [address] [place] [address] [address] [place] [address] Flaco Rosales MD [address] [place] [phone] 05/24/2024 7:00 AM PROCESS WORKER Procedure visit [facility] - CHILD PSYCHOMETRIST [address] [place] [phone] 06/07/2024 9:45 AM PROCESS WORKER Office Visit [facility] - CHILD PSYCHOMETRIST [address] [place] [phone] Flaco Rosales MD [address] [place] [phone] 07/11/2024 12:00 PM PROCESS WORKER Video Visit [facility] - Family Medicine [address] [facility] [place] [address] Deb Montenegro MD [address] [place] [phone] documented as of this encounter Procedures Procedure Name Priority Date/Time Associated Diagnosis Comments CT ABDOMEN PELVIS W CONTRAST STAT 03/07/2018 4:46 PM CDT Abdominal pain, right lower quadrant URINALYSIS REFLEX MICROSCOPIC REFLEX CULTURE STAT 03/07/2018 4:17 PM CDT PT PTT PANEL STAT 03/07/2018 4:16 PM CDT DIFFERENTIAL MANUAL Routine 03/07/2018 4 :16 PM CDT CBC W AUTO DIFFERENTIAL STAT 03/07/2018 4:16 PM CDT COMPREHENSIVE METABOLIC PANEL STAT 03/07/2018 4:16 PM CDT LIPASE BLOOD STAT 03/07/2018 4:16 PM CDT HCG URINE QUALITATIVE - POCT (IP) BEAKER - ILL STAT 03/07/2018 4:15 PM CDT documented in this encounter Results * CT ABDOMEN AND PELVIS WITH IV CONTRAST (03/07/2018 4:46 PM CDT) Anatomical Region Laterality Modality Abdomen, Pelvis Computed Tomogra phy 03/07/2018 4:54 PM CDT Impressions 03/07/2018 5:00 PM CDT 1. Multiple loops of fluid-filled small bowel possibly associated with enteritis. Adnexal regions appear grossly normal and the appendix is within normal limits. 2. 1.2 cm liver cystic lesion probably represents benign cyst. Also, incidental note of retroaortic left renal vein. Narrative 03/07/2018 5:00 PM CDT IMAGING STUDIES: CT ABDOMEN PELVIS W CONTRAST DATE: 03/07/2018 4:47 PM HISTORY: Lower abdominal pain COMPARISON: No comparisons CONTRAST: 75 mL Isovue-300 IV. No oral contrast. Radiation dose reduction technique was utilized. FINDINGS: The bowel gas pattern is nonobstructive with no free air or free fluid. The appendix is medial to the cecum and normal in size as is aorta. No hydronephrosis or hydroureter. Retroaortic left renal vein incidentally noted. Vascular structures patent. 1.1 x 1.2 x 0.9 cm cystic lesion in the right lobe of the liver likely represents benign cyst. The remainder the liver appears normal. No radiopaque gallstones. Spleen stomach and pancreas appear within normal limits. Anteflexed uterus and adnexal regions within normal limits. No definite lymphadenopathy. The lung bases are clear. Visualized portions of the lower chest unremarkable. Bones are intact. Procedure Note Richard Wong MD - 03/07/2018 IMAGING STUDIES: CT ABDOMEN PELVIS W CONTRAST DATE: 03/07/2018 4:47 PM HISTORY: Lower abdominal pain COMPARISON: No comparisons CONTRAST: 75 mL Isovue-300 IV. No oral contrast. Radiation dose reduction technique was utilized. FINDINGS: The bowel gas pattern is nonobstructive with no free air or free fluid. The appendix is medial to the cecum and normal in size as is aorta. No hydronephrosis or hydroureter. Retroaortic left renal vein incidentally noted. Vascular structures patent. 1.1 x 1.2 x 0.9 cm cystic lesion in the right lobe of the liver likely represents benign cyst. The remainder the liver appears normal. No radiopaque gallstones. Spleen stomach and pancreas appear within normal limits. Anteflexed uterus and adnexal regions within normal limits. No definite lymphadenopathy. The lung bases are clear. Visualized portions of the lower chest unremarkable. Bones are intact. IMPRESSION 1. Multiple loops of fluid-filled small bowel possibly associated with enteritis. Adnexal regions appear grossly normal and the appendix is within normal limits. 2. 1.2 cm liver cystic lesion probably represents benign cyst. Also, incidental note of retroaortic left renal vein. Sheela Chung DO CT ORDERABLES * URINALYSIS REFLEX MICROSCOPIC REFLEX CULTURE (03/07/2018 4:17 PM CDT) Color UA Straw Straw, Yellow 03/07/2018 5:03 PM CDT [facility] Clarity UA Clear Clear 03/07/2018 5:03 PM CDT [facility] Glucose UA Negative Negative 03/07/2018 5:03 PM CDT [facility] Bilirubin UA Negative Negative 03/07/2018 5:03 PM CDT [facility] Ketone UA Negative Negative 03/07/2018 5:03 PM CDT [facility] Specific [place] UA 1.010 1.005 - 1.030 03/07/2018 5:03 PM CDT [facility] Blood UA Negative Negative 03/07/2018 5:03 PM CDT [facility] pH UA 5.0 5.0 - 8.0 pH 03/07/2018 5:03 PM CDT [facility] Protein UA Negative Negative 03/07/2018 5:03 PM CDT [facility] Urobilinogen UA Negative Negative mg/dL 03/07/2018 5:03 PM CDT [facility] Nitrite UA Negative Negative 03/07/2018 5:03 PM CDT [facility] Leukocyte UA Negative Negative 03/07/2018 5:03 PM CDT [facility] Urine Microscopy Urine microscopy not indicated 03/07/2018 5:03 PM CDT [facility] Reflex Status Culture not indicated 03/07/2018 5:03 PM CDT [facility] Urine URINE SPECIMEN OBTAINED BY CLEAN CATCH PROCEDURE / Unknown Collection / Unknown 03/07/2018 4:17 PM CDT 03/07/2018 4:22 PM CDT Narrative [facility] - 03/07/2018 5:03 PM CDT Sheela Chung DO LAB - URINALYSIS OR DERABLES Performing Organization Address [facility]/State/[facility] Co de Phone Number [facility] [address] * (ABNORMAL) DIFFERENTIAL MANUAL (03/07/2018 4:16 PM CDT) WBC Auto 7.6 4.0 - 10.0 x10E9/L 03/07/2018 5:52 PM CDT [facility] Neutrophils % Manual 88(H) 40 - 75 % 03/07/2018 5:52 PM CDT [facility] Lymphocytes % Manual 9(L) 19 - 53 % 03/07/2018 5:52 PM CDT [facility] Monocytes % Manual 3(L) 5 - 13 % 03/07/2018 5:52 PM CDT [facility] Neutrophils Absolute Manual 6.7(H) 1.6 - 6.1 x10E3/uL 03/07/2018 5:52 PM CDT [facility] Lymphocytes Absolute Manual 0.7(L) 1.2 - 3.7 x10E3/uL 03/07/2018 5:52 PM CDT [facility] Monocytes Absolute Manual 0.2 0.2 - 0.9 x10E3/uL 03/07/2018 5:52 PM CDT [facility] Cells Counted 100 # cells 03/07/2018 5:52 PM CDT [facility] Platelet Estimation Adequate platelets Normal, Adequate platelets 03/07/2018 5:52 PM CDT [facility] RBC Morphology Normal 03/07/2018 5:52 PM CDT [facility] WBC Morph Normal 03/07/2018 5:52 PM CDT [facility] Blood BLOOD SPECIMEN / Unknown Venipuncture / Unknown 03/07/2018 4:16 PM CDT 03/07/2018 4:22 PM CDT Sheela Chung DO LAB - HEMATOLOGY OR DERABLES Performing Organization Address City/State/[facility] Co de Phone Number [facility] [address] * (ABNORMAL) PT PTT PANEL (03/07/2018 4:16 PM CDT) PT 10.0 9.6 - 11.5 sec 03/07/2018 4:51 PM CDT [facility] INR 0.99(L) 2 - 3 03/07/2018 4:51 PM CDT [facility] PTT 23.6(L) 24.0 - 32.0 sec 03/07/2018 4:51 PM CDT [facility] Blood BLOOD SPECIMEN / Unknown Venipuncture / Unknown 03/07/2018 4:16 PM CDT 03/07/2018 4:22 PM CDT Narrative [facility] - 03/07/2018 4:51 PM CDT Recommended therapeutic INR ranges for Oral Anticoagulant Therapy: ??2.0-3.0 For prevention of Thrombosis or Embolism and treatment of Venous Thrombosis. 2.5- 3.5 for prevention of Recurrent Embolism or treatment of patients with Mechanical Prosthetic Heart Valves. Sheela Chung DO LAB - COAGULATION O RDERABLES Performing Organization Address City/[facility]/ZIP Co de Phone Number [facility] [address] * LIPASE BLOOD (03/07/2018 4:16 PM CDT) Lipase 8 8 - 78 U/L 03/07/2018 4:47 PM CDT [facility] Blood BLOOD SPECIMEN / Unknown Venipuncture / Unknown 03/07/2018 4:16 PM CDT 03/07/2018 4:22 PM CDT Sheela Chung DO LAB - CHEMISTRY ORD ERABLES Performing Organization Address [facility] de Phone Number [facility] [address] * (ABNORMAL) COMPREHENSIVE METABOLIC PANEL (03/07/2018 4:16 PM CDT) Glucose 87 70 - 125 mg/dL 03/07/2018 4:47 PM CDT [facility] Sodium 137 136 - 145 mmol/L 03/07/2018 4:47 PM CDT [facility] Potassium 3.9 3.4 - 4.5 mmol/L 03/07/2018 4:47 PM CDT [facility] Chloride 109(H) 98 - 107 mmol/L 03/07/2018 4:47 PM CDT [facility] CO2 17(L) 22 - 29 mmol/L 03/07/2018 4:47 PM CDT [facility] Calcium 9.52 8.4 - 10.2 mg/dL 03/07/2018 4:47 PM CDT [facility] Anion Gap 15 10 - 20 mmol/L 03/07/2018 4:47 PM CDT [facility] BUN 10.9 9.8 - 20.1 mg/dL 03/07/2018 4:47 PM CDT [facility] Creatinine 0.74 0.57 - 1.11 mg/dL 03/07/2018 4:47 PM CDT [facility] eGFR by MDRD >60 >60 mL/min/1.7 3m2 03/07/2018 4:47 PM CDT [facility] eGFR by MDRD >60 >60 mL/min/1.7 3m2 03/07/2018 4:47 PM CDT [facility] Alkaline Phosphatase 43 40 - 150 U/L 03/07/2018 4:47 PM CDT [facility] ALT 11 5 - 55 U/L 03/07/2018 4:47 PM CDT [facility] AST 14 5 - 34 U/L 03/07/2018 4:47 PM CDT [facility] Protein Total 7.7 6.4 - 8.3 gm/dL 03/07/2018 4:47 PM CDT [facility] Albumin 4.5 3.5 - 5.0 gm/dL 03/07/2018 4:47 PM CDT [facility] Globulin Total 3.2 2.6 - 4.0 gm/dL 03/07/2018 4:47 PM CDT [facility] Albumin/Globulin Ratio 1.4 0.9 - 1.6 03/07/2018 4:47 PM CDT [facility] Bilirubin Total 1.3(H) 0.2 - 1.2 mg/dL 03/07/2018 4:47 PM CDT [facility] Blood BLOOD SPECIMEN / Unknown Venipuncture / Unknown 03/07/2018 4:16 PM CDT 03/07/2018 4:22 PM CDT Sheela Chung DO LAB - CHEMISTRY ORD ERABLES Performing Organization Address City/State/[facility] Co de Phone Number [facility] 1 [place], [place] [id number] [place] [address] * (ABNORMAL) CBC W AUTO DIFFERENTIAL (03/07/2018 4:16 PM CDT) WBC 7.6 4.0 - 10.0 x10E9/L 03/07/2018 4:35 PM CDT [facility] RBC 4.97 3.93 - 5.22 x10E12/L 03/07/2018 4:35 PM CDT [facility] Hemoglobin 15.5 11.2 - 15.7 gm/dL 03/07/2018 4:35 PM CDT [facility] Hematocrit 45.1(H) 34.1 - 44.9 % 03/07/2018 4:35 PM CDT [facility] MCV 90.7 78.0 - 100.0 fl 03/07/2018 4:35 PM CDT [facility] MCH 31.2 25.6 - 34.0 pg 03/07/2018 4:35 PM CDT [facility] MCHC 34.4 32.3 - 36.5 gm/dL 03/07/2018 4:35 PM CDT [facility] RDW 12.5 11.6 - 14.4 % 03/07/2018 4:35 PM CDT [facility] MPV 9.7 9.4 - 12.4 fl 03/07/2018 4:35 PM CDT [facility] Platelet Count 235 163 - 369 x10E9/L 03/07/2018 4:35 PM CDT [facility] Immature Granulocytes 0.1 0 - 0.5 % 03/07/2018 4:35 PM CDT [facility] Immature Granulocytes Absolute 0.01 0 - 0.03 x10E9/L 03/07/2018 4:35 PM CDT [facility] nRBC Auto 0 <=0 /100 WBC 03/07/2018 4:35 PM CDT [facility] Blood BLOOD SPECIMEN / Unknown Venipuncture / Unknown 03/07/2018 4:16 PM CDT 03/07/2018 4:22 PM CDT Sheela Chung DO LAB - HEMATOLOGY OR DERABLES [facility] [address] * HCG URINE QUALITATIVE - POCT (IP) BEAKER - EDEL (03/07/2018 4:15 PM CDT) HCG Qual Urine Negative Negative [facility] Lot # [id number] [facility] Expiration Date [facility] QC Verified Yes Yes [facility] Urine URINE / Unknown 03/07/2018 4 :15 PM CDT Sheela Chung DO LAB - POINT OF CARE ORDERABLES [facility] 1 [place] [address], [facility] documented in this encounter Visit Diagnoses Diagnosis Enteritis- Primary Other and unspecified noninfectious gastroenteritis and colitis Abdominal pain, right lower quadrant documented in this encounter Administered Medications Inactive Administered Medications - up to 3 most recent administrations Medication Order MAR Action Action Date Dose Rate Site 0.9% NaCl IV Bolus 1,000 mL, at 983.61 mL/hr, Administer over 61 Minutes, NOW, 1 dose, On Wed03/07/18 at 1615 $ New Bag/Syringe 03/07/2018 4:26 PM CDT 1,000 mL 983.61 mL/hr iopamidol (ISOVUE 300) 61 % contrast 20-120 mL 20-120 mL, Intravenous, CONTRAST ONCE, Starting on Wed03/07/18 at 1647, Until Wed03/07/18 at 1903 $ Given - Contrast 03/07/2018 4:47 PM CDT 75 mL morphine injection 4 mg 4 mg, Intravenous, EVERY 30 MIN PRN, Mild Pain, Moderate Pain, Severe Pain, 3 doses, Starting on Wed03/07/18 at 1603, Until Wed03/07/18 at 1903 $ Given 03/07/2018 4:25 PM CDT 4 mg ondansetron (disintegrating) (ZOFRAN ODT) tablet 4 mg 4 mg, Oral, EVERY 30 MIN PRN, Nausea/Vomiting, 2 doses, Starting on Wed03/07/18 at 1603, Until Wed03/07/18 at 1903, Allow tablet to dissolve on the tongue ondansetron (ZOFRAN) injection 4 mg 4 mg, Intravenous, EVERY 30 MIN PRN, Nausea/Vomiting, 2 doses, Starting on Wed03/07/18 at 1603, Until Wed03/07/18 at 1903, Administer IV if patient is NPO, actively vomiting, or unable to swallow. $ Given 03/07/2018 4:25 PM CDT 4 mg documented in this encounter Active and Recently Administered Medications Times are shown in CDT. Scheduled Medication Order 03/05/2018 03/06/2018 03/07/2018 0.9% NaCl IV Bolus (COMPLETED) 1,000 mL, at 983.61 mL/hr, Administer over 61 Minutes, NOW, 1 dose, On Wed03/07/18 at 1615 1626 ($ New Bag/Syri nge - Provider: Adarsh Duncan RN)1727 (Stopped - Provider: Julio C Moreno RN) iopamidol (ISOVUE 300) 61 % contrast 20-120 mL 20-120 mL, Intravenous, CONTRAST ONCE, Starting on Wed03/07/18 at 1647, Until Wed03/07/18 at 1903 1647 ($ Given - Cont rast - Provider: Giovanny Lorenzo, RT) PRN Medication Order 03/05/2018 03/06/2018 03/07/2018 morphine injection 4 mg 4 mg, Intravenous, EVERY 30 MIN PRN, Mild Pain, Moderate Pain, Severe Pain, 3 doses, Starting on Wed03/07/18 at 1603, Until Wed03/07/18 at 1903 1625 ($ Given - Prov ider: Adarsh Duncan RN) ondansetron (disintegrating) (ZOFRAN ODT) tablet 4 mg(Linked Group 1) 4 mg, Oral, EVERY 30 MIN PRN, Nausea/Vomiting, 2 doses, Starting on Wed03/07/18 at 1603, Until Wed03/07/18 at 1903, Allow tablet to dissolve on the tongue 1625 (See Alternativ e - Provider: Adarsh Duncan RN) ondansetron (ZOFRAN) injection 4 mg(Linked Group 1) 4 mg, Intravenous, EVERY 30 MIN PRN, Nausea/Vomiting, 2 doses, Starting on Wed03/07/18 at 1603, Until Wed03/07/18 at 1903, Administer IV if patient is NPO, actively vomiting, or unable to swallow. 1625 ($ Given - Prov ider: Adarsh Duncan RN) Linked Groups Order Group 1: ondansetron (disintegrating) (ZOFRAN ODT) tablet 4 mgJump to med 4 mg, Oral, EVERY 30 MIN PRN, Nausea/Vomiting, 2 doses, Starting on Wed03/07/18 at 1603, Until Wed03/07/18 at 1903, Allow tablet to dissolve on the tongue Or ondansetron (ZOFRAN) injection 4 mgJump to med 4 mg, Intravenous, EVERY 30 MIN PRN, Nausea/Vomiting, 2 doses, Starting on Wed03/07/18 at 1603, Until Wed03/07/18 at 1903, Administer IV if patient is NPO, actively vomiting, or unable to swallow. documented in this encounter Care Teams Pit And Auxiliaries Supervisor Relationship Specialty Start Date End Date Evelyn Beach, MASONRY INSTALLER-BLOW MOLD OPERATOR [address] [place] [address] PCP - General Nurse Practitioner 03/07/18 05/12/22 documented as of this encounter
--- OUTSIDE RECORDS SUMMARY | 2024-05-04 16:50 | XMS_ITS | Encounter Summary ---
Author Organization [facility] Address [address] [facility] [place] [address] Care Team Providers Care Blower Insulator Name Role Phone Deb Montenegro MD Primary Care Provider + [phone] Reason for Visit * Reason Comments Refill Request Encounter Details Date Type Department Care Team (Late st Contact Info) Description 11/13/2022 Refill [facility] - Family Medicine [address] [place] [address] Deb Montenegro MD [address] [place] [phone] Refill Request Social History Tobacco Use Types Packs/Day Years Used Date Smoking Tobacco: Every Day Cigarettes 0.3 6 Smokeless Tobacco: Never Comments:3 cigarettes daily Alcohol Use Standard Drinks/Week Comments No 0 (1 standard drink = 0.6 oz pur e alcohol) PHQ-2 Answer Date Recorded PHQ2 TOTAL SCORE 0 07/15/2022 Sex and Gender Information Value Date Recorded [...] No 12/24/2014 documented as of this encounter Miscellaneous Notes * Telephone Encounter - Vijaya Mckinley LPN - 11/13/2022 9:40 AM CDT MEDICATION FILLED PER PROTOCOL Passed Adult Medication Refill List Last Office Visit with PCP: 07/15/2022 Last Video Visit with PCP: Visit date not found Next Appointment with PCP: 11/24/2022 Last fill: 07/31/22 disp 30 R-2 Disposition of prescription: e-prescribed to preferred pharmacy documented in this encounter Plan of Treatment Upcoming Encounters Date Type Department Care Team (Late st Contact Info) Description 05/12/2024 9:30 AM GREENHOUSE GROWER Appointment [place] [address] [place] [address] Flaco Rosales MD [address] [place] [phone] 05/24/2024 7:00 AM GREENHOUSE GROWER Procedure visit [facility] - IN HOME CAREGIVER [address] [place] [phone] 06/07/2024 9:45 AM GREENHOUSE GROWER Office Visit [facility] - IN HOME CAREGIVER [address] [place] [address] Flaco Rosales MD [address] [place] [phone] 07/11/2024 12:00 PM GREENHOUSE GROWER Video Visit [facility] - Family Medicine [address] [facility] [place] [address] Deb Montenegro MD [address] [facility] [place] [phone] documented as of this encounter Visit Diagnoses Diagnosis CASSIDY (generalized anxiety disorder) Generalized anxiety disorder documented in this encounter Care Teams Blower Insulator Relationship Specialty Start Date End Date Deb Montenegro MD [address] [place] [phone] PCP - General Family Medicine 05/13/22 documented as of this encounter
--- OUTSIDE RECORDS SUMMARY | 2024-05-04 16:50 | XMS_ITS | Encounter Summary ---
Author Organization [facility] Address [address] [facility] [place] [address] Care Team Providers Care Media Sales Executive Name Role Phone Deb Montenegro MD Primary Care Provider + [phone] Reason for Visit * Reason Comments Refill Request Encounter Details Date Type Department Care Team (Late st Contact Info) Description 05/18/2023 Refill [facility] - Family Medicine [address] [place] [address] Deb Montenegro MD [address] [place] [phone] Refill Request Social History Tobacco Use Types [...] encounter Miscellaneous Notes * Telephone Encounter - Mouna Jay RN - 05/19/2023 1:00 PM CST Sent to provider for review Last Office Visit with PCP: 07/15/2022 Last Video Visit with PCP: Visit date not found Next Appointment with PCP: Visit date not found Follow-up: Return if symptoms worsen or fail to improve Disposition of prescription: e-prescribed to preferred pharmacy F READER documented in this encounter Plan of Treatment Upcoming Encounters Date Type Department Care Team (Late st Contact Info) Description 05/12/2024 9:30 AM PROOF READER Appointment [facility] Breast [facility] [address] [place] [address] Flaco Rosales MD [address] [place] [phone] 05/24/2024 7:00 AM PROOF READER Procedure visit [facility] - RETAIL TEAM LEADER [address] [place] [phone] 06/07/2024 9:45 AM PROOF READER Office Visit [facility] - RETAIL TEAM LEADER [address] [place] [address] Flaco Rosales MD [address] [place] [phone] 07/11/2024 12:00 PM PROOF READER Video Visit [facility] - Family Medicine [address] [facility] [place] [address] Deb Montenegro MD [address] [facility] [place] [phone] documented as of this encounter Visit Diagnoses Diagnosis CASSIDY (generalized anxiety disorder) Generalized anxiety disorder documented in this encounter Care Teams Media Sales Executive Relationship Specialty Start Date End Date Deb Montenegro MD [address] [place] [phone] PCP - General Family Medicine 05/13/22 documented as of this encounter
--- OUTSIDE RECORDS SUMMARY | 2024-05-04 16:50 | XMS_ITS | Encounter Summary ---
Author Organization [facility] Address [address] [facility] [place] [address] Care Team Providers Care Soaping Department Supervisor Name Role Phone Deb Montenegro MD Primary Care Provider [phone] Encounter Details Date Type Department Care Team (Latest Contact Info) Description 05/13/2022 Travel Social History Tobacco Use Types Packs/Day Years Used Date Smoking Tobacco: Every Day Cigarettes 0.3 6 Smokeless Tobacco: Never Comments:3 cigarettes daily Alcohol Use Standard Drinks/Week Comments No 0 (1 standard drink = 0.6 oz pur e alcohol) PHQ-2 Answer Date Recorded PHQ2 TOTAL SCORE 2 05/14/2022 Sex and Gender Information Value Date Recorded Sex Assigned at Not on file Gender Identity Not on file Sexual Orientation Not on file COVID-19 Exposure Response Date Recorded In the last 10 days, have yo u been in contact with someone who was confirmed or suspected to have Coronavirus/COVID-19? No / Unsure 05/13/2022 9:21 AM PARCEL CONTRACTOR documented as of this encounter Functional Status [...] No 12/24/2014 documented as of this encounter Plan of Treatment Upcoming Encounters Date Type Department Care Team (Late st Contact Info) Description 05/12/2024 9:30 AM PARCEL CONTRACTOR Appointment [facility] Breast [facility] [address] [place] [address] Flaco Rosales MD [address] [place] [address] [place] [phone] 05/24/2024 7:00 AM PARCEL CONTRACTOR Procedure visit [facility] - MAKE UP ARRANGER [address] [place] [phone] 06/07/2024 9:45 AM PARCEL CONTRACTOR Office Visit [facility] - MAKE UP ARRANGER [address] [place] [phone] Flaco Rosales MD [address] [place] [phone] 07/11/2024 12:00 PM PARCEL CONTRACTOR Video Visit [facility] - Family Medicine [address] [facility] [place] [address] Deb Montenegro MD [address] [place] [phone] documented as of this encounter Visit Diagnoses Not on filedocumented in this encounter Care Teams Soaping Department Supervisor Relationship Specialty Start Date End Date Deb Montenegro MD [address] [place] [phone] PCP - General Family Medicine 05/13/22 documented as of this encounter
--- OUTSIDE RECORDS SUMMARY | 2024-05-04 16:50 | XMS_ITS | Encounter Summary ---
Author Organization [facility] Address [address] [facility] [place] [address] Care Team Providers Care Travel Consultant Name Role Phone BayleeEvelyn SEAFOOD FISHERMAN-MACHINE PACKAGING TECHNICIAN Primary Care Provider [phone] Reason for Visit * Reason Onset Date Comments Question 03/30/2019 Encounter Details Date Type Department Care Team (Late st Contact Info) Description 03/30/2019 Telephone [facility] Heart & Vascular Care [address] [facility], [address] [place] [address] Volodymyr Salmon MD [address] [facility] [address] [place] [phone] Question Social History Tobacco Use Types Packs/Day Years [...] encounter Miscellaneous Notes * Telephone Encounter - Sena Velazquez LPN - 04/03/2019 1:35 PM CST Called [facility] to r/s testing. Auth has been obtained on 03/28/19 O STATION SUPERVISOR * Telephone Encounter - Sena Velazquez LPN - 03/31/2019 4:30 PM CST Called pt [facility] to return call to reschedule test and appt. O STATION SUPERVISOR * Telephone Encounter - Sena Velazquez LPN - 03/30/2019 5:09 PM CST Called pt [facility] to get ct and echo r/s. Insurance auth obtained. O STATION SUPERVISOR documented in this encounter Plan of Treatment Upcoming Encounters Date Type Department Care Team (Late st Contact Info) Description 05/12/2024 9:30 AM HYDRO STATION SUPERVISOR Appointment [facility] Breast Care [address] [place] [address] [address] [place] [address] Flaco Rosales MD [address] [place] [phone] 05/24/2024 7:00 AM HYDRO STATION SUPERVISOR Procedure visit [facility] - PIPE ROLLER [address] [place] [phone] 06/07/2024 9:45 AM HYDRO STATION SUPERVISOR Office Visit [facility] - PIPE ROLLER [address] [place] [address] Flaco Rosales MD [address] [place] [phone] 07/11/2024 12:00 PM HYDRO STATION SUPERVISOR Video Visit [facility] Medical Group - Family Medicine [address] [facility] [place] [address] Deb Montenegro MD [address] [place] [phone] documented as of this encounter Visit Diagnoses Not on filedocumented in this encounter Care Teams Travel Consultant Relationship Specialty Start Date End Date Evelyn Beach, SEAFOOD FISHERMAN-MACHINE PACKAGING TECHNICIAN [address] [place] [place] [address] PCP - General Nurse Practitioner 03/07/18 05/12/22 documented as of this encounter
--- OUTSIDE RECORDS SUMMARY | 2024-05-04 16:50 | XMS_ITS | Encounter Summary ---
Author Organization [facility] Address [address] [place] [address] [place] [address] Care Team Providers Care Dry Mill Operator Name Role Phone Deb Montenegro MD Primary Care Provider + [phone] Reason for Visit * Reason Onset Date Comments Appointment 04/17/2024 Encounter Details Date Type Department Care Team (Late st Contact Info) Description 04/17/2024 Telephone [facility] Group - SERVICES ADVISOR [address] [place] [phone] Flaco Rosales MD [address] [place] [phone] Appointment Social History Tobacco Use Types Packs/Day Years [...] encounter Miscellaneous Notes * Telephone Encounter - Gina Adams RN - 04/20/2024 8:18 AM CST Flaco Rosales MD 04/05/2024 3:18 PM PATIENT: Karla Castaneda BUFFING WHEEL RAKER: yes PROCEDURE: Bilateral salpingectomy DIAGNOSIS: Encounter for sterilization CPT CODES: 74937 ICD 10 CODES: Z30.2 HOSPITAL: [facility] INPATIENT OR OUTPATIENT: outpatient ANESTHESIA TYPE: General AMOUNT OF TIME NEEDED: 45 min MEDICAL CLEARANCE: No R SPRAYER * Telephone Encounter - Joleen David - 04/17/2024 11:53 AM CST Who is calling? Patient What is the reason for call? Patient is calling to schedule procedure. Expected Response from the Clinic? Call back Did you notify caller it would take 24-48 hours for the office to get back to them? YES R SPRAYER documented in this encounter Plan of Treatment Upcoming Encounters Date Type Department Care Team (Late st Contact Info) Description 05/12/2024 9:30 AM COLOR SPRAYER Appointment [facility] Breast Care [address] [place] [address] [address] [place] [address] Flaco Rosales MD [address] [place] [phone] 05/24/2024 7:00 AM COLOR SPRAYER Procedure visit [facility] - SERVICES ADVISOR [address] [place] [phone] 06/07/2024 9:45 AM COLOR SPRAYER Office Visit [facility] - SERVICES ADVISOR [address] [place] [address] Flaco Rosales MD [address] [place] [phone] 07/11/2024 12:00 PM COLOR SPRAYER Video Visit [facility] Group - Family Medicine [address] [facility] [place] [address] Deb Montenegro MD [address] [place] [phone] documented as of this encounter Visit Diagnoses Not on filedocumented in this encounter Care Teams Dry Mill Operator Relationship Specialty Start Date End Date Deb Montenegro MD [address] [place] [phone] PCP - General Family Medicine 05/13/22 documented as of this encounter
--- OUTSIDE RECORDS SUMMARY | 2024-05-04 16:50 | XMS_ITS | Encounter Summary ---
Author Organization [facility] Address [address] [place] [address] [place] [address] Care Team Providers Care Director Of Direct Marketing Name Role Phone Deb Montenegro MD Primary Care Provider + [phone] Reason for Visit * Reason Comments Follow-up 2 mo FU- Zoloft work ing beautifully Encounter Details Date Type Department Care Team (Late st Contact Info) Description 07/15/2022 8:20 AM DOCKMASTER Office Visit [facility] Medical [facility] - Family Medicine [address] [facility] [place] [address] Deb Montenegro MD [address] [place] [phone] Nausea and vomiting, unspecified vomiting type (Primary Dx); CASSIDY (generalized anxiety disorder) Social History Tobacco Use Types Packs/Day Years [...] suspected to have Coronavirus/COVID-19? No / Unsure 07/15/2022 8:10 AM DOCKMASTER documented as of this encounter Last Filed Vital Signs Vital Sign Reading Time Taken Comments Blood Pressure 120/76 07/15/2022 8:20 AM DOCKMASTER Pulse 103 07/15/2022 8:20 AM DOCKMASTER Temperature 36.4 ??C (97.6 ??F) 07/15/2022 8:20 AM CS T Respiratory Rate - - Oxygen Saturation 99% 07/15/2022 8:20 AM DOCKMASTER Inhaled Oxygen Concentration - - Weight 54.5 kg (120 lb 3.2 oz) 07/15/2022 8:20 A M DOCKMASTER Height 165.1 cm (5' 5 ) 07/15/2022 8:20 AM DOCKMASTER Body Mass Index 20 07/15/2022 8:20 AM DOCKMASTER documented in this encounter Functional Status Functional [...] as of this encounter Progress Notes * Deb Montenegro MD - 07/15/2022 8:25 AM CST Patient: Karla Castaneda - Encounter Date: 07/15/22 Subjective: Patient ID: Karla Castaneda is a 32 year old female with a chief complaint of Follow-up (2 mo FU- Zoloft working beautifully ) Anxiety/ Nausea: so much better since starting the Zoloft, CASSIDY 14--> 2 (if even that). Initial nausea with starting, all resolved. Seen by Cargo Agent and stared on Hanane, doing well without any issues. Nausea: almost gone, drank a beer without issues. Bentyl on a rare occasion. Health Maintenance Due: - Declined all vaccines today - Pap: will schedule with me Patient medical, surgical, family, and social histories reviewed and updated in chart. Allergies and immunizations reviewed and updated in chart. Patient Care Team: Deb Montenegro MD as PCP - General (Family Medicine) Objective: BP 120/76 (BP SITE: RIGHT ARM, BP POSITION: SITTING, BP CUFF SIZE: 11) Pulse 103 Temp 97.6 ??F (36.4 ??C) Ht 1.651 m (5' 5 ) Wt 54.5 kg (120 lb 3.2 oz) SpO2 99% Physical Exam Constitutional: Appearance: Normal appearance. HENT: Head: Normocephalic and atraumatic. Cardiovascular: Rate and Rhythm: Normal rate and regular rhythm. Pulmonary: Effort: Pulmonary effort is normal. Breath sounds: Normal breath sounds. Neurological: Mental Status: She is alert. Psychiatric: Mood and Affect: Mood normal. Behavior: Behavior normal. Assessment and Plan: Karla was seen today for follow-up. Diagnoses and all orders for this visit: Nausea and vomiting, unspecified vomiting type CASSIDY (generalized anxiety disorder) - sertraline (Zoloft) 50 MG tablet; Take 1 (one) tablet by mouth once daily Sx have almost completely resolved. Refill for Zoloft 50mg. Schedule pap with me. CASSIDY-7 ANXIETY SCALE Patient Health Questionnaire 07/15/2022 Nervous? 1 Control worrying? 0 Worry too much? 1 Trouble relaxing? 0 Restless? 0 Irritable? 0 Afraid? 0 Total Score (0-5 mild; 6-10 moderate; 11-15 moderately severe; 15-21 severe) 2 Difficulty Level Not difficult at all MASTER documented in this encounter Plan of Treatment Upcoming Encounters Date Type Department Care Team (Late st Contact Info) Description 05/12/2024 9:30 AM DOCKMASTER Appointment [facility] Breast [address] [place] [address] Flaco Rosales MD [address] [place] [phone] 05/24/2024 7:00 AM DOCKMASTER Procedure visit [facility] - HEALTH COMMUNICATIONS SPECIALIST [address] [place] [phone] 06/07/2024 9:45 AM DOCKMASTER Office Visit [facility] - HEALTH COMMUNICATIONS SPECIALIST [address] [place] [phone] Flaco Rosales MD [address] [facility] [place] [phone] 07/11/2024 12:00 PM DOCKMASTER Video Visit [facility] Medical [facility] - Family Medicine [address] [place] [address] Deb Montenegro MD [address] [place] [phone] documented as of this encounter Visit Diagnoses Diagnosis Nausea and vomiting, unspecified vomiting type- Primary CASSIDY (generalized anxiety disorder) Generalized anxiety disorder documented in this encounter Care Teams Director Of Direct Marketing Relationship Specialty Start Date End Date Deb Montenegro MD [address] [place] [phone] PCP - General Family Medicine 05/13/22 documented as of this encounter
--- OUTSIDE RECORDS SUMMARY | 2024-05-04 16:50 | XMS_ITS | Encounter Summary ---
Author Organization [facility] Address [address] [place] [address] [place] [address] Care Team Providers Care Vamp Wetter Name Role Phone Deb Montenegro MD Primary Care Provider + [phone] Reason for Visit * Reason Comments Surgery Cancellation Encounter Details Date Type Department Care Team (Latest Contact Info) Description 05/15/2022 11:30 AM MECHANIC WELDER Office Visit [facility] - SPA MANAGER/ESTHETICIAN [address] [place] [phone] Flaco Rosales MD [facility] [place] [phone] Contraceptive education (Primary Dx) Social History Tobacco Use Types Packs/Day Years [...] suspected to have Coronavirus/COVID-19? No / Unsure 05/15/2022 11:13 AM MECHANIC WELDER documented as of this encounter Last Filed Vital Signs Vital Sign Reading Time Taken Comments Blood Pressure 116/62 05/15/2022 11:48 AM MECHANIC WELDER Pulse - - Temperature - - Respiratory Rate - - Oxygen Saturation - - Inhaled Oxygen Concentration - - Weight 56.2 kg (124 lb) 05/15/2022 11:48 AM MECHANIC WELDER Height - - Body Mass Index 20.63 05/13/2022 9:33 AM MECHANIC WELDER documented in this encounter Functional Status Functional [...] as of this encounter Progress Notes * Flaco Rosales MD - 05/15/2022 12:46 PM CST Chief Complaint Patient presents with ??? Surgery Cancellation Karla Castaneda is a 32 year old with: Problem Contraceptive Education Patient wants to discuss contraceptive options She is currently on Junel, but is having mood issues She is or is not: is sexually active Her periods are regular ROS: Negative for fever, unintentional weight gain/weight loss, TORRES, blurred vision, CP, SOB, dyspnea, cough, nausea, vomiting, diarrhea, dysuria, urinary frequency or urgency, joint swelling or pain Past Medical History: Diagnosis Date ??? H/O [...] file Occupational History ??? Not on file Tobacco Use ??? Smoking status: Every Day Packs/day: 0.25 Years: 6.00 Pack years: 1.50 Types: Cigarettes ??? Smokeless tobacco: Never ??? Tobacco comments: 3 cigarettes daily Vaping Use ??? Vaping Use: Never used Substance and Sexual Activity ??? Alcohol use: No ??? Drug use: No ??? Sexual activity: Not on file Other Topics Concern ??? Special Diet Not Asked Social History Narrative ??? Not on file Social Determinants of Health Financial Resource Strain: Not on file Food Insecurity: Not on file Transportation Needs: Not on file Physical Activity: Not on file Stress: Not on file Social Connections: Not on file Intimate Partner Violence: Not on file Housing Stability: Not on file Family History Problem Relation Name Age of Onset ??? Diabetes; unknown type Father ??? Other - Cardiac Sister ??? Heart Failure Maternal Grandmother ??? Diabetes Maternal Grandmother ??? Diabetes - Type 2 Maternal Grandmother ??? Heart Failure Maternal Grandfather ??? Diabetes; unknown type Paternal Grandmother No Known Allergies BP 116/62 Wt 56.2 kg (124 lb) Cons: well-appearing, NAD Psych: alert and oriented Cards: regular rate Pulm: non-labored respiration Abd: soft, ND Ext: no edema No results found for this visit on 05/15/22. 32 year old with: Contraceptive education The patient was counseled regarding all options for contraception, including LARCs After consideration, the patient wishes to proceed with Hanane Rx sent RTO for routine well-woman exam, sooner PRN Flaco Rosales MD 05/15/2022 12:46 PM ANIC WELDER documented in this encounter Plan of Treatment Upcoming Encounters Date Type Department Care Team (Late st Contact Info) Description 05/12/2024 9:30 AM MECHANIC WELDER Appointment [facility] Breast Care [facility] [place] [address] [place] [address] Flaco Rosales MD [address] [place] [address] [place] [phone] 05/24/2024 7:00 AM MECHANIC WELDER Procedure visit [facility] Medical [facility] - SPA MANAGER/ESTHETICIAN [address] [place] [address] [place] [phone] 06/07/2024 9:45 AM MECHANIC WELDER Office Visit [facility] - SPA MANAGER/ESTHETICIAN [address] [place] [phone] Flaco Rosales MD [address] [facility] [place] [phone] 07/11/2024 12:00 PM MECHANIC WELDER Video Visit [facility] - Family Medicine [address] [place] [address] Deb Montenegro MD [address] [place] [phone] documented as of this encounter Visit Diagnoses Diagnosis Contraceptive education- Primary Other general counseling and advice for contraceptive management * Assessment & Plan Note - Flaco Rosales MD - 05/15/2022 12:46 PM MECHANIC WELDER Associated Problem(s): Contraceptive education The patient was counseled regarding all options for contraception, including LARCs After consideration, the patient wishes to proceed with Hanane Rx sent ANIC WELDER documented in this encounter Care Teams Vamp Wetter Relationship Specialty Start Date End Date Deb Montenegro MD [address] [place] [phone] PCP - General Family Medicine 05/13/22 documented as of this encounter
--- OUTSIDE RECORDS SUMMARY | 2024-05-04 16:50 | XMS_ITS | Encounter Summary ---
Author Organization [facility] Address [address] [place] [address] Care Team Providers Care Handbag Finisher Name Role Phone Sena Ulrich [facility] Primary Care Provider [phone] Reason for Visit * Reason Comments Hypertension Pt was sent over fro m office for increased B/Ps today for work up * Auth/Cert - Closed Specialty Diagnoses / Procedures Referred By Contac t Referred To Contact Diagnoses Hypertension in , antepartum, third trimester (HCC) Referral ID Status Reason Start Date Expiration Date Visits Re quested Visits Authorized [id number] Closed 1 1 Encounter Details Date Type Department Care Team (Latest Contact Info) Description 12/24/2014 10:00 AM CDT - 12/28/2014 11:55 AM CDT Hospital Encounter [facility] [id number] [place] [address] Fawn Elder MD [address] [place] [address] Obstetrics Discharge Disposition: Home or Self Care Social [...] Sign Reading Time Taken Comments Blood Pressure 144/83 12/28/2014 8:10 AM CDT Pulse 71 12/28/2014 8:10 AM CDT Temperature 36.4 ??C (97.6 ??F) 12/28/2014 8:10 AM CD T Respiratory Rate 16 12/28/2014 8:10 AM CDT Oxygen Saturation 96% 12/28/2014 8:10 AM CDT Inhaled Oxygen Concentration - - Weight 85.3 kg (188 lb) 12/24/2014 10:37 AM CDT Height 166.4 cm (5' 5.5 ) 12/24/2014 10:37 AM CD T Body Mass Index 30.81 12/24/2014 10:37 AM CDT documented in this encounter Functional Status [...] 12/24/2014 documented as of this encounter Discharge Summaries * Esa Campbell MD - 01/17/2015 7:50 AM CDT Gynecological Discharge Summary Domingo Werner Admission Date: 12/24/2014 Discharge Date: 12/28/2014 Attending: No current attending provider for patient encounter. Transferring Doctor: Esa Campbell MD Discharge Diagnosis: induced HTN, vaginal delivery HPI: 24 y.o. P: 0 Admitted with induced HTN Surgery Performed: Vaginal delivery Consults: none Hospital Course: uncomplicated Objective: No data recorded. Vitals: 12/28/14 0010 12/28/14 0418 12/28/14 0652 12/28/14 0810 BP: 134/66 146/86 139/81 144/83 Pulse: 63 63 64 71 Temp: 97.9 ??F 97.6 ??F Resp: 16 Weight: SpO2: 98% 96% No intake or output data in the 24 hours ending 01/17/15 0751 Discharge Exam: Abdomen soft, minimal tenderness, bowel sounds normal. Incision clean, dry and intact. Lower extremities without pain, swelling, or redness bilaterally. General: not in acute distress Abdomen: soft Discharge Labs: HCT Date/Time Value Ref Range Status 12/26/2014 06:14 AM 32.4* 34.1-44.9 % Final Condition at discharge: good Plan: Discharge Medication List As of 12/28/2014 12:17 PM START taking these medications Instructions Authorizing Provider ibuprofen 600 MG tablet Commonly known as: MOTRIN Take 1 Tab by mouth every 6 hours Esa Campbell labetalol 100 MG tablet Commonly known as: NORMODYNE; TRANDATE Take 1 Tab by mouth 3 times daily Esa Campbell CONTINUE taking these medications Instructions Authorizing Provider 1 PO Take 1 Tab by mouth once daily. Discharge Procedure Orders Why you were hospitalized Order Specific Question Answer Comments Your discharge diagnosis is [[id number]] No special diet needed Resume your normal home diet as tolerated. Eat well-balanced meals that include foods from all of the food groups. Drink plenty of fluids It is important that you stay well hydrated. You should drink at least eight to ten 8-ounce glassesof water per day. Nothing per vagina For 4-6 weeks Light activity For 4-[address] Until you feel safe operating a vehicle, usually around 2weeks for a section No heavy lifting Do not lift anything over 15 pounds for 4-6 weeks after a section. Contact your provider Call your Drivematic Machine Operator if you have questions or concerns, or for any of the following issues: -- for a temperature higher than 101F -- for pain that gets worse or does not get better after taking your pain medication(s) as directed -- if you see a lot of bleeding from your incision -- if your incision looks infected (red, swollen, warm to the touch, or non- clear, foul-smelling drainage) -- if you have severe cramping or increased vaginal bleeding Shower and bathing instructions May shower today. May bathe in 4-6weeks. Follow up with provider Order Specific Question Answer Comments Follow Up Instructions: In 1 weeks for a vaginal delivery, 2 weeks for a section, or unless otherwise instructed For relief of pain Take ibuprofen or Tylenol for relief of pain or discomfort. Stool softeners Take docusate sodium, Colace, 100 mg once or twice daily for relief of difficult bowel movements. For relief of constipation Take Milk of Magnesia for relief of constipation. Contact Information for Follow-Up Providers [place] [address] [place] [address] In 1 weeks for a vaginal delivery, 2 weeks for a section, or unless otherwise instructed Discharge criteria met. The appropriate post-operative instructions and precautions reviewed. She will be discharged on meds as ordered. Regular diet. Pelvic rest as instructed. No heavy lifting. Contact physician for increased bleeding, increased pain or fever. Wound instructions and precautions given. Esa Campbell MD documented in this encounter Discharge Instructions * Discharge Instructions* Stephanie Vásquez RN - 12/28/2014 11:09 AM CDT MATERNAL DISCHARGE INSTRUCTIONS BREAST CARE Nursing Mothers: 1. Bathe daily and wash breasts with water only. 2. Leave nipples to air dry. 3. If your breasts are engorged, you can nurse your baby more often or express enough breast milk by hand or breast pump to relieve pressure. 4. Continue to take your Vitamins as long as you are breast feeding. 5. Wear a supportive bra at all times. 6. Drink plenty of fluids. 7. Eat a well balanced diet. Non-Nursing Mothers: 1. Wear a well-fitted bra to reduce engorgement. Cold packs may provide comfort. 2. Ask your doctor about pain medication if needed. 3. Reduce fluid intake and avoid caffeine. 4. DO NOT EXPRESS ANY BREAST MILK. Within 24-48 hours, your breasts will be softer and getting backto normal. EPISIOTOMY CARE 1. Keep perineal area clean. 2. After each bowel movement, wipe from front to back. 3. Change severino-pad each time you use the bathroom. 4. NO DOUCHING, TAMPONS, SEX OR VAGINAL MEDICATIONS until after your follow-up appointment with your doctor. 5. Take home your severino-bottle, cleanse perineum with warm water each time you go to the bathroom. 6. Stiches will dissolve on their own in 7-10 days. 7. Use sitz baths as desired, 2-3 times per day. WHEN TO CALL YOUR DOCTOR 1. If you have heavy bleeding, elevated temperature over 1004, severe abdominal pain, pain or burning upon urinating, or foul smelling vaginal odor. 2. If you have redness, swelling, discharge or odor from episiotomy or incision. 3. It is not unusual to have brief periods of mild sadness. However, if you have extreme feelings of helplessness or hopelessness, lack of appetite or lack of interest in your surroundings, it is important to contact your doctor immediately for assistance. EXERCISE AND ACTIVITY 1. No strenuous exercise until after your check-up with your doctor. 2. Do not lift anything heavier than your baby for 6 weeks. 3. Use caution about driving. 4. No heavy housework for at least 2 weeks. This includes carrying heavy grocery bags, vacuuming orclimbing stairs frequently. CARE 1. You may Shower, do not rub incision with washcloth or let the water spray hit directly on the incision line. 2. Remove steri-strips in 2 weeks. 3. No driving for at least 2 weeks. Fawn Elder MD Office Mom's Blood Type: Recent Labs Component Name 12/25/14 0935 ABO A Rhogam Needed: No Rhogam Given: No AN APPOINTMENT HAS BEEN MADE FOR YOU ON December AT 9:10 WITH Carlin ULRICH FOR A BLOOD PRESSURE CHECK AND January AT 10:40 WITH Carlin ULRICH FOR A CHECK UP. documented in this encounter Medications at Time of Discharge Medication Sig Dispensed Refills Start Date End Date ibuprofen (MOTRIN) 600 MG tablet Take 1 Tab by mouth every 6 hours 40 Tab 1 12/28/2014 07/15/2022 labetalol (NORMODYNE; TRANDATE) 100 MG tablet Take 1 Tab by mouth 3 times daily 90 Tab 0 12/28/2014 03/20/2019 MV-Min-Fe Fum-FA-DHA ( 1 PO) Take 1 Tab by mouth once daily. 03/20/2019 documented as of this encounter Progress Notes * Stephanie Vásquez RN - 12/28/2014 11:20 AM CDT Maternal and care instructions given to patient and . RX given as well with instructions on when to take. Follow up appoints made and relayed on discharge paperwork. Questions answered. * Domingo Avalos RN - 12/28/2014 9:12 AM CDT Problem: Goal: Status is maintained within the expected range. Outcome: Goal Met Date Met: 12/28/14 Problem: Emotional Well-Being Goal: Patient participates in decision-making and choices for care. Outcome: Goal Met Date Met: 12/28/14 Goal: Parent- bonding occurs Outcome: Goal Met Date Met: 12/28/14 * Esa Campbell MD - 12/28/2014 7:54 AM CDT OB Progress Note Subjective: Patient is feeling well, pain adequately controlled, and ambulating. No TORRES, edema or vision changes. Objective: Temp (36hrs) Max:98.3 ??F Vitals: 12/27/14 1949 12/27/14 2207 12/28/14 0010 12/28/14 0418 BP: 144/87 139/87 134/66 146/86 Pulse: 58 63 63 63 Temp: 98.3 ??F 97.9 ??F Resp: Weight: SpO2: 98% 98% Intake/Output Summary (Last 24 hours) at 12/28/14 0754 Last data filed at 12/27/14 1252 Gross per 24 hour Intake 240 ml Output 800 ml Net -560 ml Exam: General: alert, cooperative, no distress Bowel Sounds: active Lochia: appropriate Uterine Fundus: firm Incision: DVT Evaluation: No evidence of DVT seen on physical exam. Data: Results: My review of labs, imaging, notes and other tests shows no new significant findings. Assessment: day 2. Complications: none, The patient feels well. Pain is well controlled with current medications. Urinary output is adequate. The patient is ambulating well. The patient is tolerating a normal diet. Flatus admits to been passed. Plan: hOME WITH INSt. RTO 1wk * James Reyes - 12/27/2014 8:18 PM CDT Problem: High Risk for Impaired Well Being Goal: Viable Infant is Safely Delivered Outcome: Goal Met Date Met: 12/27/14 Problem: Anxiety and Fear Anxiety and fear related to risk of harm to self and fetus. Goal: Anxiety is at manageable level Outcome: Goal Met Date Met: 12/27/14 Goal: Verbalizes Understanding of Disease Process and Treatment Outcome: Goal Met Date Met: 12/27/14 Goal: Family Members Act as Support System Outcome: Goal Met Date Met: 12/27/14 * Fawn Elder MD - 12/27/2014 8:21 AM CDT OB Progress Note Subjective: Patient is feeling well, pain adequately controlled, passing flatus, tolerating diet, ambulating. She denies headaches, visual disturbances, nausea, or vomiting. She is still on magnesium sulfate; her only complaint is feeling hot. She states her swelling has improved. Objective: Temp (36hrs) Max:98.5 ??F Vitals: 12/27/14 0030 12/27/14 0411 12/27/14 0648 12/27/14 0744 BP: 136/88 131/79 143/73 148/94 Pulse: 76 63 63 71 Temp: 98 ??F 97.8 ??F 98 ??F Resp: 16 Weight: SpO2: 97% 95% Intake/Output Summary (Last 24 hours) at 12/27/14 0821 Last data filed at 12/27/14 0551 Gross per 24 hour Intake 3529 ml Output 3700 ml Net -171 ml Exam: General: alert, cooperative, no distress Lochia: appropriate Uterine Fundus: firm DVT Evaluation: No evidence of DVT seen on physical exam. Data: Results: There are no new results to review at this time. Assessment: day 2. Complications: Severe preeclampsia Plan: Stop magnesium sulfate Start labetalol 100mg PO TID; may increase to 200mg if BPs remain elevated Possible home tomorrow Recent Labs Component Name 12/26/14 0614 12/25/14 0423 12/24/14 1017 WBC 17.2* 8.0 8.7 HGB 10.8* 10.2* 11.2 HCT 32.4* 30.6* 34.1 PLTCOUNT 215 222 241 * Cata Lopez MD - 12/26/2014 6:57 AM CDT Patient Name: Domingo Werner Date of : 1990 CSN: [id number] OB Progress Note Subjective: Patient is feeling well, pain adequately controlled, and ambulating. Objective: Temp (36hrs) Max:98.6 ??F Vitals: 12/26/14 0335 12/26/14 0350 12/26/14 0405 12/26/14 0612 BP: 131/95 140/90 149/91 151/94 Pulse: 87 80 75 Temp: 98.4 ??F Resp: 16 Weight: SpO2: 98% Intake/Output Summary (Last 24 hours) at 12/26/14 0657 Last data filed at 12/26/14 0430 Gross per 24 hour Intake 4131 ml Output 2930 ml Net 1201 ml Exam: General: No apparent distress Abdomen: Soft, appropriately tender to palpation, non-distended, active bowel sounds, firm fundus below the umbilicus Extremities: No lower extremity edema Data: Results: My review of labs, imaging, notes and other tests shows no new significant findings. Recent Labs Component Name 12/26/14 0614 12/25/1442212/24/14 1017 WBC 17.2* 8.0 8.7 HGB 10.8* 10.2* 11.2 HCT 32.4* 30.6* 34.1 PLTCOUNT 215 222 241 Assessment/Plan: 24 y.o. day #1 s/p 1. Infectious disease: Afebrile. No signs or symptoms of infection. 2. Heme: Post Hgb10.8. EBL 300ml. No dizziness or lightheadedness. 3. Cardiovascular/Pulmonary: Vital signs stable. Severe pre-eclampsia: On magnesium for seizure prophylaxis. BPs normal to mild range. Labs wnl. No neuro symptoms. Continue magnesium 12-24hr . 4. Gastrointestinal: Tolerating regular diet. 5. Genitourinary: Voiding spontaneously with adequate urine output. 6. Pain: Controlled with oral pain medications 7. Mother/Baby: . Cata Lopez MD 12/26/2014 6:57 AM * Dennis Mehta RN - 12/26/2014 4:00 AM CDT Problem: Maternal and Safety Goal: Maternal & status throughout the labor & delivery process is maintained within expected range. Outcome: Goal Met Date Met: 12/26/14 Viable male delivered. Problem: Emotional Well-Being Goal: Participates in decision-making Outcome: Goal Met Date Met: 12/26/14 Goal: Verbalizes coping strategies Outcome: Goal Met Date Met: 12/26/14 Goal: Patient/Support person will have all essential information communicated in language they can understand Outcome: Goal Met Date Met: 12/26/14 Goal: Care delivered is culturally relevant Outcome: Goal Met Date Met: 12/26/14 Goal: Parent- bonding occurs As evidenced by: A. Eye contact B. Holding close C. Frequently touching Outcome: Goal Met Date Met: 12/26/14 Positive bonding noted. * Dennis Mehta RN - 12/26/2014 2:15 AM CDT 2 hour recovery period finished but B/P remains elevated. Will continue to monitor B/P frequently at this time. Pt voiced understanding when explained. Enc pt to shut off lights & attempt to restat this time. Spouse supportive at bedside. SR up x 2 with call light in reach. * Dennis Mehta RN - 12/26/2014 1:50 AM CDT Pt voiced need to try to void at this time. Assisted up to the BSC & able to move legs well. Ptsat on bedside commode for a while but was unable to void. Seveirno care instructions given on use of the squirt bottle & Mesh underwear & perineal cold pack applied. Pt returned to bed to rest. Encouraged pt family to leave so she can rest since B/P is elevated. Pt is agreeable to plan of care. SR up x 2 with call light in reach. Magnesium sulfate continues to infuse well via IV pump. * Dennis Mehta RN - 12/26/2014 1:00 AM CDT Epidural catheter removed at this time with blue tip intact. Site clear. Pt mane removal well. Area cleansed with warm water & band-aid applied over site. * Dennis Mehta RN - 12/25/2014 11:56 PM CDT Spontaneous delivery of apparently intact placenta. Pitocin bolus started via IV pump. IV site clear in rt hand. * Dennis Mehta RN - 12/25/2014 11:51 PM CDT Spontaneous vaginal delivery of viable pre-term infant with spontaneous vigorous cry at delivery. placed on maternal abdomen. 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 Goal: Signs/Symptoms of Pulmonary Edema Avoided Outcome: Ongoing Lungs clear to auscultation bilaterally Goal: Respiratory rate will be within normal limits for patient. Outcome: Ongoing Respirations are even & unlabored Problem: Anxiety and Fear Anxiety and fear related to risk of harm to self and fetus. Goal: Family Members Act as Support System Outcome: Ongoing Family very supportive at bedside * Cata Lopez MD - 12/25/2014 5:36 PM CDT Patient Name: Domingo Werner Date of : 1990 CSN: [id number] Labor Note Subjective: Called to see patient for: Artificial rupture of membranes Objective: Vitals: 12/25/14 1713 12/25/14 1717 12/25/14 1723 12/25/14 1727 BP: 113/84 133/83 133/86 127/77 Pulse: Temp: Resp: Weight: SpO2: Physical Exam: Cervix: 3/80/-3 heart tones: 140 BPM, moderate variability, positive accelerations, no decelerations [place]:q2 minutes Assessment/Plan: 24 y.o. 35w5d by 1st trimester U/S 1. IOL: For severe pre-eclampsia. S/p cytotec x2. AROM without difficulty, bloody fluid. IUPC placed without difficulty. Will start pitocin if needed. Anticipate 2. Severe pre-eclampsia: By severe range BPs. No neuro symptoms and normal pre- eclampsia labs. On magnesium for seizure prophylaxis. 3. 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 No further problems. S/p MFM consultation and ECHO-pt cleared for vaginal delivery. 4. FWB: category 1 5. GBS unknown: On amp for . * Elisha Crenshaw RN - 12/25/2014 10:00 AM CDT Pt provided with ice bucket and cold wash clothes, and fan. Pt denies any other needs now. * Alex De MD - 12/25/2014 9:04 AM CDT Domingo Werner [id number] S: Pt feels well. Denies TORRES or epigastric pain O: BPs remain elevated including systolics in the severe range this am. (167/85). Normal reflexes. Repeat PIH labs without significant change from yesterday. A: Severe preeclampsia at 35 5/7 weeks. P: Per M phone consult yesterday will deliver patient and will start Iv MgSO4. Plan explained to patient and family who agree. Their questions answered in detail. Dr. Lopez alsopresent for discussion as she is marketing operations manager today. Alex De MD * Dennis Mehta RN - 12/25/2014 7:15 AM CDT Pt aroused easily when dietary to room with regular diet tray. * Dennis Mehta RN - 12/25/2014 6:00 AM CDT Resting quietly in bed without c/o pain. Denied any needs at present. * Dennis Mehta RN - 12/25/2014 4:03 AM CDT Pt aroused easily for reassessment at this time. Cooperative with staff. Denied any pain or needs. Denied any headache, visual disturbances, or epigastric pain. No edema noted. See flow sheets for full assessment. SR up x 2 with call light in reach. Spouse asleep on couch in room. * Dennis Mehta RN - 12/25/2014 3:15 AM CDT Pt resting quietly now in bed after voiding without difficulty. Denied any needs at this time. Pleasant & calm. SR up x 2 with call light in reach. * Dennis Mehta RN - 12/25/2014 1:35 AM CDT Sleeping quietly without s/sx of acute distress at this time. Respirations are even & unlabored. SR up x 2 with call light in reach. * Dennis Mehta RN - 12/24/2014 10:40 PM CDT Family has left & pt is ready to try to sleep. TV off & lights off to rest. Denied any painor problems at this time. SR up x 2 with call light in reach. Denied any headache, visual disturbances, or epigastric pain. No edema noted. * Dennis Mehta RN - 12/24/2014 9:00 PM CDT Sitting in bed visiting with her spouse & her parents. Pleasant & calm. States she feels good when asked. No s/sx of acute distress noted. * Dennis Mehta RN - 12/24/2014 7:20 PM CDT Pt sitting up in bed visiting with family/friends. Pleasant & calm at this time. Plan of care for assessment at approx 1999 discussed & pt voiced understanding. Fresh ice water given at this time. SR up x 2 with call light in reach. * Elisha Crenshaw RN - 12/24/2014 10:40 AM CDT Ultrasound at bedside for BPP and growth * Elisha Crenshaw RN - 12/24/2014 10:00 AM CDT Patient was sent over from office for increased blood pressures, orders received and verified from Carlin Ulrich CNM to get [facility] labs, serial blood pressure, 24 hour urine, urine-protein creatinine ratio,U/S for growth, and BPP documented in this encounter H&P Notes * Alex De MD - 12/24/2014 4:17 PM CDT [facility] History and Physical PATIENT NAME: DOMINGO WERNER MR#: [id number] CSN: [id number] CLASS: OPO ADMISSION DATE: 12/24/2014ROOM#: [id number] PRIMARY MD: SEX: F ATTENDING MD: FAWN ELDER DICTATOR: ALEX DE M.D.: 1990 DATE SEEN: 12/24/2014 ADMISSION DIAGNOSIS: 1.Intrauterine at 35 weeks and 4 days. 2.-induced hypertension. HISTORY OF PRESENT ILLNESS: The patient is a 24-year-old, primigravid woman at 35 weeks and 4 days who presented to the office for routine OB appointment and was noted to have elevated blood pressure. She was sent to OB for evaluation where her blood pressures remained elevated, the worst was 173/97 but in general they remained in the 140-150 over 80-90 range. LABORATORY STUDIES: Were all within normal range, specifically she had no proteinuria, creatinine was 0.66, uric acid was 5.7. She is admitted at this time for observation and serial blood pressure measurements. PAST MEDICAL HISTORY: She denies diabetes, hypertension, heart, lung, liver or kidney disease. Actually, she has a history of coarctation of the aorta, which was corrected at 4 years old, but states that she has had normal physical functioning since that time, that she has done all kinds of athletics without any difficulty and she has been cleared cardiac-flores for vaginal delivery. PAST SURGICAL HISTORY: As per the above, she has had a correction of a coarctation of the aorta performed at 4 years of age. FILLING ROOM OPERATOR HISTORY: She is a primigravida as per the history of the present illness. MEDICATIONS: vitamins. ALLERGIES: NONE KNOWN. SOCIAL HISTORY: She denies illegal drug use. PHYSICAL EXAMINATION GENERAL: The patient is a well developed, gravid female, alert and oriented, in no acute distress. HEENT: Head is normocephalic, atraumatic. Pupils are equal, round and reactive to light and accommodation. Extraocular muscles intact. Oropharynx is clear. BACK: Without costovertebral angle tenderness. HEART: Regular rate and rhythm. LUNGS: Clear to auscultation. ABDOMEN: Gravid with a fundal height of 35. GENITALIA: External genitalia are normal in appearance. CERVIX: 1 cm per examination in the office by Sena Ulrich. EXTREMITIES: Without cyanosis, clubbing, or edema. NEUROLOGIC: Grossly intact. Specifically the patient has normal reflexes. ASSESSMENT: -induced hypertension. PLAN: Observation overnight with delivery of the baby if the patient develops severe blood pressures or symptoms and expectant management to 37 weeks with bed rest at home if the patient's pressures remained within the mild range. This case was discussed with Dr. Starks, the maternal medicine doctor on-call at [facility]. Alex De M.D. BRIDGETT/JERMAIN /[id number] cc: Alex De M.D. HISTORY AND PHYSICAL - HP documented in this encounter Nursing Notes * Ann Marie Conway RN - 12/28/2014 8:45 AM CDT Mom states latched and breastfed well for 10 minutes this morning. Encouraged her to continue trying to attempt to breastfeed first, then pump and give expressed milk via bottle until is well established. Reviewed normal behavior and late behavior. Reviewed supply/demand, establishing an optimal supply and signs of adequacy. Mom denies needing help at this time or further questions. Encouraged mom to call as needed. LC contact information provided. * Ann Marie Conway RN - 12/27/2014 2:30 PM CDT Mom states she attempted to breastfeed earlier, but is very sleepy after circumcision. Encouraged mom to attempt to breastfeed when infant showing cues. If does not nurse well, then encouraged her to pump and supplement with expressed milk or formula until milk supply increases. Discussed appropriate supplemental feeding volumes. And expected behavior of a late preterminfant. Encouraged mom to continue pumping to promote/protect supply until infant is nursing well. Mom denies needing help at this time or questions, but states will request LC tomorrow. Will f/u. * Ann Marie Conway RN - 12/26/2014 1:20 PM CDT Mom instructed to pump and dump due to being on Mag for elevated blood pressures. Mag sulfate has the lowest risk code and is probably compatible with according to Flaco Velasquez's book, Medications and Mothers milk (2014). Discussed pumping and getting baby back to breast once fbi profiler allows. Discussed supply/demand, normal behavior and what to expect in the first few days to weeks. Infant is a 35 weeker and discussed this in relation to as well. Encouraged mom to request LC when latch assistance needed. Will f/u. documented in this encounter Miscellaneous Notes * Delivery Summary - Dennis Mehta RN - 12/26/2014 12:30 AM CDT DELIVERY SUMMARY Mother's Post Delivery /Para: OB History Para Term AB TAB SAB Ectopic Multiple Living 1 1 0 1 0 0 0 0 0 1 Estimated Date of Delivery: 01/24/15 Temp (48hrs) Max:98.6 ??F Mother's Information Patient Information Patient Name Sex Domingo Werner ([id number]) Female 1990 OB History Para Term AB SAB TAB Ectopic Multiple Living 1 1 0 1 0 0 0 0 0 1 # Outcome Date GA Labor/2nd Weight Sex Delivery Anes PTL Lv Name A1 A5 Location 1 12/25/14 35w5d 5h 58m / 0h 41m 2900 g (6 lb 6.3 oz) M VAGINAL Epidural Y 8 9 Other August MD John Transcribed Labs 12/25/14 1125 RH (Manually Reproduced) Positive Blood Type (Manually Reproduced) A Syphilis Serology (Manually Reproduced) Negative HIV (Manually Reproduced) Negative Hepatitis B Surface Antigen (Manually Reproduced) Negative Rubella Status ( Manually Reproduced) Immune Kang Werner [[id number]] Patient Information Patient Name Sex Kang Werner ([id number]) Male 12/25/2014 Procedures No data filed Group Beta Strep Status/Number of Antibiotic Doses GBS Status: Unknown Antibiotic: Ampicillin Number of Antibiotic Doses: 4 Membranes/Fluid Membrane Status: Ruptured Rupture Date: 12/25/14 Rupture Time: 5:25 PM Fluid Description: Bloody, Normal Odor Amniotic Fluid Volume: Moderate Anesthesia/Analgesia Anesthesia/Analgesia: Epidural Intrapartum Events Induction Method: Misoprostol , Oxytocin , AROM Augmentation Method: None Conditions: Pre-eclampsia Labor and Delivery Complications: None Section Decision No data filed Delivery Type/ Presentation Delivery Type: Presentation: Vertex : : : Placenta Date and time: 12/25/2014 11:56 PM Appearance/Removal/Tests: Intact, Normal Configuration, Spontaneous, Sent to Pathology Episiotomy/Laceration/Repair with Sponge and Sharp Counts Episiotomy: None Lacerations: 2nd, Periurethral Repair Suture: Vicryl, 3.0 Vaginal Delivery Counts Vaginal Delivery Counts Final Count Sponges Correct Sharps Correct Staff #1 Completing Count Pre-Delivery: Wang Crenshaw RN Post- Delivery: Dr Lopez Staff #2 Completing Count Pre-Delivery: Brandon CAPPS Post- Delivery: Kem CAPPS Mother's Estimated Blood Loss for Vaginal Delivery ONLY Estimated Blood Loss (mL): 300 1 Minute : Skin Color: 0 Grimace: 2 Breathin Heart Rate: 2 Muscle Tone: 2 Total: 8 5 Minute : Skin Color: 1 Grimace: 2 Breathin Heart Rate: 2 Muscle Tone: 2 Total: 9 [place] Stabilization Equipment Checked by: F Potter RN Vigorous at ? (Heart rate greater than 100, normal respirations and normal muscle tone): Yes Suction Method: Bulb Secretions (Amount in Comment): Clear, Thin, Mucous Requires more than warming, stimulation, and suction?: No Thermoregulation Support: Cap, Overhead Warmer, Warm Blankets Description of Baby: Spontaneous vigorous cry at delivery. Cord/Gases Vessels: 3 Vessels Complications: None Cord Blood Disposition: Nursery, Lab Gases Sent: No Baby Vital Statistics Date: 12/25/14 Time: 2350 Weight: 2900 g Length: 19.5 Head Circum.: 12.6 Feeding/Elimination Mother's Feeding Choice for this Stay: Human Milk Voided in Delivery Room?: Yes Stooled in Delivery Room?: No Delivering Clinician Delivering Clinician: CATA LOPEZ Specifics Length Weight HC Gestational Age Delivery Method 19.5 (49.5 cm) 2900 g (6 lb 6.3 oz) 12.6 (32 cm) 35 5/7 weeks 1 minute 5 minutes 8 9 Additional History Feeding Duration of Labor Human Milk 1st: 5h 58m / 2nd: 41m * Delivery Summary - Cata Lopez MD - 12/26/2014 12:11 AM CDT Physician Delivery Note 12/26/2014 12:11 AM Patient Name: Domingo Werner Date of : 1990 CSN: [id number] 24 y.o. 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 Labor: induced Anesthesia: epidural Episiotomy/Laceration/Repair: 2nd degree repaired with 3-0 Vicryl without difficulty Delivery: spontaneous Time of delivery: 2351 Position: KIM Infant weight: 2900g sex: Male scores: 8 1 minute/9 5 minutes Placenta: spontaneous, intact, 3 vessel cord Time of Placenta: 2356 EBL: 300cc's Complications: None Comments: Uncomplicated of vigorous male infant documented in this encounter Plan of Treatment Upcoming Encounters Date Type Department Care Team (Late st Contact Info) Description 05/12/2024 9:30 AM RADIOISOTOPE TECHNICIAN Appointment [facility] [address] [place] [address] Flaco Rosales MD [address] [place] [address] [place] [address] 05/24/2024 7:00 AM RADIOISOTOPE TECHNICIAN Procedure visit [facility] - PUBLIC BATH ATTENDANT [address] [place], [place] [address] [phone] 06/07/2024 9:45 AM RADIOISOTOPE TECHNICIAN Office Visit [facility] - PUBLIC BATH ATTENDANT [address] [place] [address] Flaco Rosales MD [address] [place] [address] [place] [phone] 07/11/2024 12:00 PM RADIOISOTOPE TECHNICIAN Video Visit [facility] - Family Medicine [address] [facility] [place] [address] [place] [address] Deb Montenegro MD [address] [facility] [place] [place] [phone] documented as of this encounter Procedures Procedure Name Priority Date/Time Associated Diagnosis Comments CBC W AUTO DIFFERENTIAL AM Draw 12/26/2014 6:14 AM CDT GROSS + MICRO EXAM (ILL) Routine 12/25/2014 11:56 PM CDT RPR FABIOLA 12/25/2014 9:35 AM CDT TYPE + SCREEN PANEL FABIOLA 12/25/2014 9 :35 AM CDT BLOOD TYPE VERIFICATION Routine 12/25/2014 4:50 AM CDT URIC ACID BLOOD Routine 12/25/2014 4:23 AM CDT Hypertension affecting , third trimester (HCC) CBC W AUTO DIFFERENTIAL Routine 12/25/2014 4:23 AM CDT Hypertension affecting , third trimester (HCC) COMPREHENSIVE METABOLIC PANEL Routine 12/25/2014 4:23 AM CDT Hypertension affecting , third trimester (HCC) PTT FABIOLA 12/24/2014 11:49 AM CDT Hypertension affecting , third trimester (HCC) PT-INR FABIOLA 12/24/2014 11:49 AM CDT Hypertension affecting , third trimester (HCC) US UTERUS LIMITED Routine 12/24/2014 11:15 AM CDT Hypertension affecting , third trimester (HCC) US OB BIOPHYSICAL PROFILE Routine 12/24/2014 10:50 AM CDT Hypertension affecting , third trimester (HCC) URIC ACID BLOOD FABIOLA 12/24/2014 10:17 AM CDT Hypertension affecting , third trimester (HCC) CBC W AUTO DIFFERENTIAL FABIOLA 12/24/2014 10:17 AM CDT Hypertension affecting , third trimester (HCC) COMPREHENSIVE METABOLIC PANEL FABIOLA 12/24/2014 10:17 AM CDT Hypertension affecting , third trimester (HCC) URINALYSIS REFLEX MICROSCOPIC REFLEX CULTURE Routine 12/24/2014 10:05 AM CDT Hypertension affecting , third trimester (HCC) PROTEIN CREATININE RATIO URINE RANDOM PNL Routine 12/24/2014 10:05 AM CDT Hypertension affecting , third trimester (HCC) documented in this encounter Results * (ABNORMAL) CBC W AUTO DIFFERENTIAL (12/26/2014 6:14 AM CDT) [facility] WBC 17.2(H) 4.0 - 10.0 x10^9/L 12/26/2014 6:31 AM CDT [facility] RBC 3.65(L) 3.93 - 5.22 x10^12/L 12/26/2014 6:31 AM [facility] Hemoglobin 10.8(L) 11.2 - 15.7 gm/dL 12/26/2014 6:31 AM [facility] Hematocrit 32.4(L) 34.1 - 44.9 % 12/26/2014 6:31 AM [facility] MCV 88.8 78.0 - 100.0 fl 12/26/2014 6:31 AM [facility] MCH 29.6 25.6 - 34.0 pg 12/26/2014 6:31 AM [facility] MCHC 33.3 32.3 - 36.5 gm/dL 12/26/2014 6:31 AM [facility] RDW 12.7 11.6 - 14.4 % 12/26/2014 6:31 AM [facility] MPV 10.7 9.4 - 12.4 fl 12/26/2014 6:31 AM [facility] Platelet Count 215 163 - 369 x10^9/L 12/26/2014 6:31 AM [facility] Neutrophils % 89.2(H) 40.0 - 75.0 % 12/26/2014 6:31 AM [facility] Lymphocytes % 5.5(L) 19.3 - 53.1 % 12/26/2014 6:31 AM [facility] Monocytes % 5.0 4.7 - 12.5 % 12/26/2014 6:31 AM [facility] Eosinophils % 0.0(L) 0.7 - 7.0 % 12/26/2014 6:31 AM [facility] Basophils % 0.1 0.1 - 1.2 % 12/26/2014 6:31 AM [facility] Immature Granulocytes 0.2 0 - 0.5 % 12/26/2014 6:31 AM [facility] Neutrophil Absolute 15.30(H) 1.56 - 6.13 x10^9/L 12/26/2014 6:31 AM [facility] Lymphocytes Absolute 0.95(L) 1.18 - 3.74 x10^9/L 12/26/2014 6:31 AM [facility] Monocytes Absolute 0.86 0.24 - 0.86 x10^9/L 12/26/2014 6:31 AM CDT [facility] Eosinophils Absolute 0.00(L) 0.04 - 0.54 x10^9/L 12/26/2014 6:31 AM CDT [facility] Basophils Absolute 0.01 0.01 - 0.08 x10^9/L 12/26/2014 6:31 AM CDT [facility] Immature Granulocytes Absolute 0.04(H) 0 - 0.03 x10^9/L 12/26/2014 6:31 AM CDT [facility] nRBC Auto 0 <=0 /100 WBC 12/26/2014 6:31 AM CDT [facility] nRBC Absolute 0.00 <=0 x10^9/L 12/26/2014 6:31 AM CDT [facility] Blood BLOOD SPECIMEN / Unknown Lab Venipuncture / Unknown 12/26/2014 6:14 AM CDT 12/26/2014 6:28 AM CDT Cata Lopez MD LAB - HEMATOLOGY ORD ERABLES Performing Organization Address City/State/[facility] Co de Phone Number [facility] [address] * GROSS + MICRO EXAM (ILL) (12/25/2014 11:56 PM CDT) Case Report Surgical Pathology Report ? Case: [id number] ? Authorizing Provider: ??Cata Lopez MD ? Collected: ? 12/25/2014 11:56 PM ? Ordering Location: ? [facility] ? Received: ?12/26/2014 05:39 AM ? Pathologist: ? Alex Diggs MD ? Specimen: ?Placenta ? 12/27/2014 1:44 PM CDT [facility] Final Diagnosis PLACENTA, 415 GRAMS, VAGINAL DELIVERY: - TRIVASCULAR UMBILICAL CORD WITHOUT FUNISITIS. - MEMBRANES WITHOUT CHORIOAMNIONITIS OR MECONIUM CONTACT. - PLACENTAL DISC WITHOUT GROSS ABNORMALITY. - MILDLY THIRD TRIMESTER CHORIONIC VILLI WITH CONGESTION. - FIBRINOID CHANGE OF MATERNAL VESSELS OF DECIDUAL BASALIS. BHAVANA/jzwang 12/27/2014 1:44 PM CDT [facility] Clinical History Collection Date: 12/25/2014 Maternal History: 35 5/7 weeks with severe pre-eclampsia. Unknown GBBS status. Weeks Gestation: 35 5/7 weeks. G1, T0, P1, A0, L1 Operative Procedure: Spontaneous vaginal delivery. Specimen Source: Placenta and umbilical cord. Physician: Cata Lopez MD 12/27/2014 1:44 PM CDT [facility] Gross Description Received in formalin labeled Leonel, Domingo and placenta and cord , is a brown placenta with attached umbilical cord and membranes. A second segment of cord lies free within the specimen container. The membranes are semitransparent and delicate without an abnormal discoloration or mucoid texture appreciated. The three vessel umbilical cord is 27 cm in aggregate length and up to 1.2 cm in diameter. It inserts 7.5 cm from the nearest disc margin. After removal of membrane and cord, the 415 gram disc is 17 x 16 x 2.7 cm in greatest dimension. The surface contains partially blood filled vessels radiating from the site of cord attachment. The maternal surface contains numerous cotyledons and grossly appears complete. Areas of placental compression are absent. On serial sectioning, the cut surfaces are beefy red and congested without wedge shaped areas of infarction, septal cysts or parenchymal mass lesions. The slices have a spongy consistency without areas of increased palpable firmness. Sections of trivascular umbilical cord with basalis are submitted in cassette A1, membranes with additional basalis in cassette A2 and full thickness disc in cassettes A3-A5. BHAVANA/tory 12/27/2014 1:44 PM CDT [facility] Microscopic Description Microscopic examination is performed and substantiates the above diagnosis. 12/27/2014 1:44 PM CDT AM LABORATORY Testing Performed By Performed by [facility] [place]. [address] 12/27/2014 1:44 PM CDT [facility] Pathology/Cytolo gy ENTIRE PLACENTA / Unknown 12/25/2014 11:56 PM CDT 12/26/2014 5:39 AM CDT Cata Lopez MD LAB - PATHOLOGY/CYTO LOGY ORDERABLES [facility] [address] * RPR (12/25/2014 9:35 AM CDT) RPR Nonreactive Nonreactive 12/26/2014 1:29 PM CDT [facility] Blood BLOOD SPECIMEN / Unknown Lab Venipuncture / Unknown 12/25/2014 9:35 AM CDT 12/25/2014 9:44 AM CDT Alex De MD LAB - CHEMISTRY CASSY SMITH [facility] [address] * TYPE + SCREEN PANEL (12/25/2014 9:35 AM CDT) ABO A 12/25/2014 10:31 AM CDT [facility] Rh Type Positive 12/25/2014 10:31 AM CDT [facility] Comment:History check perfor med. Retype required. Antibody Screen Negative 12/25/2014 10:31 AM CDT [facility] Miscellaneous samples (specimen) BLOOD SPECIMEN / Unknown Lab Venipuncture / Unknown 12/25/2014 9:35 AM CDT 12/25/2014 9:44 AM CDT Alex De MD LAB - BLOOD BANK ORD MAGDALENO Performing Organization Address [facility] Co de Phone Number [facility] [address] * BLOOD TYPE VERIFICATION (12/25/2014 4:50 AM CDT) ABO A 12/25/2014 11:26 AM CDT [facility] Rh Type Positive 12/25/2014 11:26 AM CDT [facility] Miscellaneous samples (specimen) BLOOD SPECIMEN / Unknown 12/25/2014 4:50 AM CDT 12/25/2014 10:23 AM CDT Fawn Elder MD LAB - BLOOD BANK ORD MAGDALENO Performing Organization Address [facility] Co de Phone Number [facility] [address] * URIC ACID BLOOD (12/25/2014 4:23 AM CDT) Uric Acid 5.7 2.6 - 6.0 mg/dL 12/25/2014 5:23 AM CDT [facility] Blood BLOOD SPECIMEN / Unknown Lab Venipuncture / Unknown 12/25/2014 4:23 AM CDT 12/25/2014 5:02 AM CDT Alex De MD LAB - CHEMISTRY CASSY SMITH [facility] [address] * (ABNORMAL) COMPREHENSIVE METABOLIC PANEL (12/25/2014 4:23 AM CDT) Glucose 75 70 - 125 mg/dL 12/25/2014 5:23 AM CDT [facility] Sodium 136 136 - 145 mmol/L 12/25/2014 5:23 AM CDT [facility] Potassium 3.7 3.4 - 4.5 mmol/L 12/25/2014 5:23 AM CDT [facility] Chloride 108(H) 98 - 107 mmol/L 12/25/2014 5:23 AM CDT [facility] CO2 19(L) 22 - 29 mmol/L 12/25/2014 5:23 AM CDT [facility] Calcium 8.51 8.4 - 10.2 mg/dL 12/25/2014 5:23 AM CDT [facility] Anion Gap 13 10 - 20 mmol/L 12/25/2014 5:23 AM CDT [facility] BUN 8.0(L) 9.8 - 20.1 mg/dL 12/25/2014 5:23 AM CDT [facility] Creatinine 0.65 0.57 - 1.11 mg/dL 12/25/2014 5:23 AM CDT [facility] eGFR by MDRD >60 >60 mL/min/1.7 3m2 12/25/2014 5:23 AM CDT [facility] eGFR by MDRD >60 >60 mL/min/1.7 3m2 12/25/2014 5:23 AM CDT [facility] Alkaline Phosphatase 95 40 - 150 U/L 12/25/2014 5:23 AM CDT [facility] ALT 15 5 - 55 U/L 12/25/2014 5:23 AM CDT [facility] AST 18 5 - 34 U/L 12/25/2014 5:23 AM CDT [facility] Protein Total 5.4(L) 6.4 - 8.3 gm/dL 12/25/2014 5:23 AM CDT [facility] Albumin 2.5(L) 3.5 - 5.0 gm/dL 12/25/2014 5:23 AM CDT [facility] Globulin Total 2.9 2.6 - 4.0 gm/dL 12/25/2014 5:23 AM CDT [facility] Albumin/Globulin Ratio 0.9 0.9 - 1.6 12/25/2014 5:23 AM CDT [facility] Bilirubin Total 0.3 0.2 - 1.2 mg/dL 12/25/2014 5:23 AM CDT [facility] Blood BLOOD SPECIMEN / Unknown Lab Venipuncture / Unknown 12/25/2014 4:23 AM CDT 12/25/2014 5:02 AM CDT Alex De MD LAB - CHEMISTRY CASSY SMITH [facility] Organization Address City/State/ZIP Co de Phone Number [facility] [address] [place] [address], [facility] * (ABNORMAL) CBC W AUTO DIFFERENTIAL (12/25/2014 4:23 AM CDT) WBC 8.0 4.0 - 10.0 x10^9/L 12/25/2014 5:09 AM CDT [facility] RBC 3.43(L) 3.93 - 5.22 x10^12/L 12/25/2014 5:09 AM CDT [facility] Hemoglobin 10.2(L) 11.2 - 15.7 gm/dL 12/25/2014 5:09 AM CDT [facility] Hematocrit 30.6(L) 34.1 - 44.9 % 12/25/2014 5:09 AM CDT AM [facility]ORY MCV 89.2 78.0 - 100.0 fl 12/25/2014 5:09 AM CDT [facility] MCH 29.7 25.6 - 34.0 pg 12/25/2014 5:09 AM CDT [facility] MCHC 33.3 32.3 - 36.5 gm/dL 12/25/2014 5:09 AM CDT [facility] RDW 12.5 11.6 - 14.4 % 12/25/2014 5:09 AM CDT [facility] MPV 11.0 9.4 - 12.4 fl 12/25/2014 5:09 AM CDT [facility] Platelet Count 222 163 - 369 x10^9/L 12/25/2014 5:09 AM CDT [facility] Neutrophils % 69.9 40.0 - 75.0 % 12/25/2014 5:09 AM CDT [facility] Lymphocytes % 21.3 19.3 - 53.1 % 12/25/2014 5:09 AM CDT [facility] Monocytes % 8.1 4.7 - 12.5 % 12/25/2014 5:09 AM CDT [facility] Eosinophils % 0.3(L) 0.7 - 7.0 % 12/25/2014 5:09 AM CDT [facility] Basophils % 0.1 0.1 - 1.2 % 12/25/2014 5:09 AM CDT [facility] Immature Granulocytes 0.3 0 - 0.5 % 12/25/2014 5:09 AM CDT [facility] Neutrophil Absolute 5.59 1.56 - 6.13 x10^9/L 12/25/2014 5:09 AM CDT [facility] Lymphocytes Absolute 1.70 1.18 - 3.74 x10^9/L 12/25/2014 5:09 AM CDT [facility] Monocytes Absolute 0.65 0.24 - 0.86 x10^9/L 12/25/2014 5:09 AM CDT [facility] Eosinophils Absolute 0.02(L) 0.04 - 0.54 x10^9/L 12/25/2014 5:09 AM CDT [facility] Basophils Absolute 0.01 0.01 - 0.08 x10^9/L 12/25/2014 5:09 AM CDT [facility] Immature Granulocytes Absolute 0.02 0 - 0.03 x10^9/L 12/25/2014 5:09 AM CDT [facility] nRBC Auto 0 <=0 /100 WBC 12/25/2014 5:09 AM CDT [facility] nRBC Absolute 0.00 <=0 x10^9/L 12/25/2014 5:09 AM CDT [facility] Blood BLOOD SPECIMEN / Unknown Lab Venipuncture / Unknown 12/25/2014 4:23 AM CDT 12/25/2014 5:02 AM CDT Alex De MD LAB - HEMATOLOGY ORD ERABLES Performing Organization Address City/[facility] Co de Phone Number [facility] [address] * (ABNORMAL) PTT (12/24/2014 11:49 AM CDT) PTT 22.2(L) 24.0 - 32.0 sec 12/24/2014 1:13 PM T [facility] Blood BLOOD SPECIMEN / Unknown Lab Venipuncture / Unknown 12/24/2014 11:49 AM CDT 12/24/2014 11:54 AM CDT Sena Ulrich APRN-CNM LAB - COAGULATION ORDERABLES Performing Organization Address City/[facility] Co de Phone Number [facility] [address] [place], [place] [id number] [place] [address] * (ABNORMAL) PT-INR (12/24/2014 11:49 AM CDT) PT <8.7(L) 9.6 - 11.5 sec 12/24/2014 1:13 PM CDT AM LABORATORY INR <0.86(L) 2 - 3 12/24/2014 1:13 PM CDT [facility] Blood BLOOD SPECIMEN / Unknown Lab Venipuncture / Unknown 12/24/2014 11:49 AM CDT 12/24/2014 11:54 AM CDT Narrative [facility] - 12/24/2014 1:13 PM CDT Recommended therapeutic INR ranges for Oral Anticoagulant Therapy: ??2.0-3.0 For prevention of Thrombosis or Embolism and treatment of Venous Thrombosis. 2.5- 3.5 for prevention of Recurrent Embolism or treatment of patients with Mechanical Prosthetic Heart Valves. Sena Ulrich IJEOMA-CNM LAB - COAGULATION ORDERABLES Performing Organization Address [facility] de Phone Number [facility] [address] [place], [place] [id number] [place] [address] * [place] LIMITED [id number] (12/24/2014 11:15 AM CDT) Anatomical Region Laterality Modality Ultrasound 12/24/2014 1:13 PM CDT Narrative 12/24/2014 2:44 PM CDT OBSTETRIC ULTRASOUND, 12/24/2014 CLINICAL HISTORY: ??Growth. FINDINGS: A single viable intrauterine . Average ultrasound age based on biometrics obtained today 35 weeks 4 days, estimated date of confinement 01/24/2015. Heart rate 147 beats per minute. movements are present. The placenta is grade 0. Estimated weight 5 pounds 14 ounces +/- 14 ounces or 2678 g +/- 396 g. Estimated percentile of weight 45th percentile. Calculated NÉSTOR 9.8 based on four-quadrant technique. The 50th percentile would be 14 cm, the 5th percentile would be 7.9 cm. Difficult to obtain the most accurate measurements of the fetus head due to positioning. The head is very low in the pelvis. Results were called to Dr. Sena Ulrich. Procedure Note Lenny Mitchell MD - 12/24/2014 OBSTETRIC ULTRASOUND, 12/24/2014 CLINICAL HISTORY: Growth. FINDINGS: A single viable intrauterine . Average ultrasound age based on biometrics obtained today 35 weeks 4 days, estimated date of confinement 01/24/2015. Heart rate 147 beats per minute. movements are present. The placenta is grade 0. Estimated weight 5 pounds 14 ounces +/- 14 ounces or 2678 g +/- 396 g. Estimated percentile of weight 45th percentile. Calculated NÉSTOR 9.8 based on four-quadrant technique. The 50th percentile would be 14 cm, the 5th percentile would be 7.9 cm. Difficult to obtain the most accurate measurements of the fetus head due to positioning. The head is very low in the pelvis. Results were called to Dr. Sena Ulrich. Sena Ulrich [employer]-CNM US ORDERABLES * US OB BPP W/O NST [id number] (12/24/2014 10:50 AM CDT) Anatomical Region Laterality Modality Abdomen Ultrasound 12/24/2014 1:11 PM CDT Narrative 12/24/2014 2:44 PM CDT BIOPHYSICAL PROFILE, 12/24/2014 CLINICAL HISTORY: ??Antepartum hypertension. FINDINGS: Out of a possible score of 8, the fetus received 2 out of 2 for body movement, 2 out of 2 for breathing movement, 2 and 2 for tone, 2 out of 2 for amniotic fluid volume, for a total score of 8 out of a possible 8. Fetus was seen to be moving well. Findings were called to Sena Ulrich. NÉSTOR calculation 9.8 with the 50th percentile being 14 cm and the 5th percentile being 7.9 cm. Single viable intrauterine , heart rate 147 beats per minute, vertex position. Placental location is fundal maternal right. Procedure Note Lenny Mitchell MD - 12/24/2014 BIOPHYSICAL PROFILE, 12/24/2014 CLINICAL HISTORY: Antepartum hypertension. FINDINGS: Out of a possible score of 8, the fetus received 2 out of 2 for body movement, 2 out of 2 for breathing movement, 2 and 2 for tone, 2 out of 2 for amniotic fluid volume, for a total score of 8 out of a possible 8. Fetus was seen to be moving well. Findings were called to Sena Ulrich. NÉSTOR calculation 9.8 with the 50th percentile being 14 cm and the 5th percentile being 7.9 cm. Single viable intrauterine , heart rate 147 beats per minute, vertex position. Placental location is fundal maternal right. Sena Ulrich APRN-DANIEL US ORDERABLES * URIC ACID BLOOD (12/24/2014 10:17 AM CDT) Uric Acid 5.7 2.6 - 6.0 mg/dL 12/24/2014 10:42 AM CDT [facility] Blood BLOOD SPECIMEN / Unknown Lab Venipuncture / Unknown 12/24/2014 10:17 AM CDT 12/24/2014 10:21 AM CDT Sena Ulrich APRN-CNMylene LAB - CHEMISTRY OR DERABLES [facility] [address] * (ABNORMAL) COMPREHENSIVE METABOLIC PANEL (12/24/2014 10:17 AM CDT) Glucose 78 70 - 125 mg/dL 12/24/2014 10:42 AM CDT [facility] Sodium 136 136 - 145 mmol/L 12/24/2014 10:42 AM CDT [facility] Potassium 4.1 3.4 - 4.5 mmol/L 12/24/2014 10:42 AM CDT [facility] Chloride 109(H) 98 - 107 mmol/L 12/24/2014 10:42 AM CDT [facility] CO2 19(L) 22 - 29 mmol/L 12/24/2014 10:42 AM CDT [facility] Calcium 9.48 8.4 - 10.2 mg/dL 12/24/2014 10:42 AM CDT [facility] Anion Gap 12 10 - 20 mmol/L 12/24/2014 10:42 AM CDT [facility] BUN 8.1(L) 9.8 - 20.1 mg/dL 12/24/2014 10:42 AM CDT [facility] Creatinine 0.66 0.57 - 1.11 mg/dL 12/24/2014 10:42 AM CDT AM LABORATORY eGFR by MDRD >60 >60 mL/min/1.7 3m2 12/24/2014 10:42 AM CDT [facility] eGFR by MDRD >60 >60 mL/min/1.7 3m2 12/24/2014 10:42 AM CDT [facility] Alkaline Phosphatase 105 40 - 150 U/L 12/24/2014 10:42 AM CDT [facility] ALT 19 5 - 55 U/L 12/24/2014 10:42 AM CDT [facility] AST 24 5 - 34 U/L 12/24/2014 10:42 AM CDT [facility] Protein Total 6.2(L) 6.4 - 8.3 gm/dL 12/24/2014 10:42 AM CDT [facility] Albumin 2.8(L) 3.5 - 5.0 gm/dL 12/24/2014 10:42 AM CDT [facility] Globulin Total 3.4 2.6 - 4.0 gm/dL 12/24/2014 10:42 AM CDT [facility] Albumin/Globulin Ratio 0.8(L) 0.9 - 1.6 12/24/2014 10:42 AM CDT [facility] Bilirubin Total 0.3 0.2 - 1.2 mg/dL 12/24/2014 10:42 AM CDT [facility] Blood BLOOD SPECIMEN / Unknown Lab Venipuncture / Unknown 12/24/2014 10:17 AM CDT 12/24/2014 10:21 AM CDT Sena Ulrich [facility] - CHEMISTRY OR DERABLES Performing Organization Address City/State/[facility] Co de Phone Number [facility] [address] [place], [place] [address] * (ABNORMAL) CBC W AUTO DIFFERENTIAL (12/24/2014 10:17 AM CDT) WBC 8.7 4.0 - 10.0 x10^9/L 12/24/2014 10:38 AM CDT [facility] RBC 3.80(L) 3.93 - 5.22 x10^12/L 12/24/2014 10:38 AM [facility] Hemoglobin 11.2 11.2 - 15.7 gm/dL 12/24/2014 10:38 AM [facility] Hematocrit 34.1 34.1 - 44.9 % 12/24/2014 10:38 AM [facility] MCV 89.7 78.0 - 100.0 fl 12/24/2014 10:38 AM [facility] MCH 29.5 25.6 - 34.0 pg 12/24/2014 10:38 AM [facility] MCHC 32.8 32.3 - 36.5 gm/dL 12/24/2014 10:38 AM [facility] RDW 12.6 11.6 - 14.4 % 12/24/2014 10:38 AM [facility] MPV 10.9 9.4 - 12.4 fl 12/24/2014 10:38 AM [facility] Platelet Count 241 163 - 369 x10^9/L 12/24/2014 10:38 AM [facility] Neutrophils % 76.6(H) 40.0 - 75.0 % 12/24/2014 10:38 AM [facility] Lymphocytes % 15.2(L) 19.3 - 53.1 % 12/24/2014 10:38 AM [facility] Monocytes % 7.8 4.7 - 12.5 % 12/24/2014 10:38 AM [facility] Eosinophils % 0.1(L) 0.7 - 7.0 % 12/24/2014 10:38 AM [facility] Basophils % 0.1 0.1 - 1.2 % 12/24/2014 10:38 AM [facility] Immature Granulocytes 0.2 0 - 0.5 % 12/24/2014 10:38 AM [facility] Neutrophil Absolute 6.65(H) 1.56 - 6.13 x10^9/L 12/24/2014 10:38 AM [facility] Lymphocytes Absolute 1.32 1.18 - 3.74 x10^9/L 12/24/2014 10:38 AM [facility] Monocytes Absolute 0.68 0.24 - 0.86 x10^9/L 12/24/2014 10:38 AM CDT [facility] Eosinophils Absolute 0.01(L) 0.04 - 0.54 x10^9/L 12/24/2014 10:38 AM CDT [facility] Basophils Absolute 0.01 0.01 - 0.08 x10^9/L 12/24/2014 10:38 AM CDT [facility] Immature Granulocytes Absolute 0.02 0 - 0.03 x10^9/L 12/24/2014 10:38 AM T [facility] nRBC Auto 0 <=0 /100 WBC 12/24/2014 10:38 AM CDT [facility] nRBC Absolute 0.00 <=0 x10^9/L 12/24/2014 10:38 AM CDT [facility] Blood BLOOD SPECIMEN / Unknown Lab Venipuncture / Unknown 12/24/2014 10:17 AM CDT 12/24/2014 10:21 AM CDT [facility] H[facility] O RDERABLES Performing Organization Address City/[facility]/ZIP Co de Phone Number [facility] [address] * PROTEIN CREATININE RATIO URINE RANDOM PNL (12/24/2014 10:05 AM CDT) Protein Urine <6.8 mg/dL 12/24/2014 10:46 AM [facility] Creatinine Urine 12.6 mg/dL 12/24/2014 10:46 AM T [facility] Protein/Creatin ine Ratio Urine <200.00 12/24/2014 10:46 AM T [facility] Comment:Not able to calculat e; protein <6.8 Urine URINE SPECIMEN OBTAINED BY CLEAN CATCH PROCEDURE / Unknown 12/24/2014 10:05 AM CDT 12/24/2014 10:20 AM CDT [facility] URINE CHEMIS TRY ORDERABLES Performing Organization Address [facility]/ZIP Co de Phone Number [facility] [address] * URINALYSIS ROUTINE W/REFLEX TO CULTURE (12/24/2014 10:05 AM CDT) Color UA Straw 12/24/2014 10:25 AM CDT [facility] Clarity UA Slt Cloudy 12/24/2014 10:25 AM CDT [facility] Glucose UA Negative Negative 12/24/2014 10:25 AM CDT [facility] Bilirubin UA Negative Negative 12/24/2014 10:25 AM CDT [facility] Ketone UA Negative Negative 12/24/2014 10:25 AM CDT [facility] Specific [place] UA <=1.005 1.005 - 1.030 12/24/2014 10:25 AM CDT [facility] pH UA 7.0 5.0 - 8.0 pH 12/24/2014 10:25 AM CDT [facility] Protein UA Negative Negative 12/24/2014 10:25 AM CDT [facility] Urobilinogen UA 0.2 0.2 - 1.0 EU/dL 12/24/2014 10:25 AM CDT [facility] Nitrite UA Negative Negative 12/24/2014 10:25 AM CDT [facility] Blood UA Negative Negative 12/24/2014 10:25 AM CDT [facility] Leukocyte UA Negative Negative 12/24/2014 10:25 AM CDT [facility] Urine Microscopy Urine microscopy not indicated 12/24/2014 10:25 AM CDT [facility] Reflex Status Culture not indicated 12/24/2014 10:25 AM CDT [facility] Urine URINE SPECIMEN OBTAINED BY CLEAN CATCH PROCEDURE / Unknown 12/24/2014 10:05 AM CDT 12/24/2014 10:21 AM CDT Sena Ulrich [facility] - URINALYSIS O RDERABLES [facility] [address] [place] [address], [facility] documented in this encounter Visit Diagnoses Diagnosis Normal , first (HCC)- Primary Supervision of normal first Hypertension affecting , third trimester (HCC) Gestational hypertension (HCC) Unspecified hypertension complicating , childbirth, or the puerperium, unspecified as to episode of care documented in this encounter Administered Medications Inactive Administered Medications - up to 3 most recent administrations Medication Order MAR Action Action Date Dose Rate Site ampicillin (OMNIPEN) IVPB 2 g 2 g, at 200 mL/hr, Intravenous, ONCE, 1 dose, On Wed12/25/14 at 0945 $ Given 12/25/2014 10:10 AM CDT 2 g 200 mL/hr ampicillin IVPB 1 g 1 g, at 200 mL/hr, Intravenous, EVERY 4 HOURS, First dose on Wed12/25/14 at 1330, Until Discontinued $ Given 12/25/2014 10:00 PM CDT 1 g 200 m L/hr $ Given 12/25/2014 6:10 PM CDT 1 g 200 mL/hr $ Given 12/25/2014 1:56 PM CDT 1 g 200 mL/hr benzocaine-menthol (DERMOPLAST) spray Topical, PRN, Mild Pain, Moderate Pain, for perineal discomfort, Starting on Wed12/26/14 at 0405, Until Wed12/28/14 at 1317, . WASTE DISPOSAL INSTRUCTION: Send to Pharmacy for Disposal. . $ Given 12/26/2014 4:25 AM CDT diphenhydrAMINE (BENADRYL) injection 25 mg 25 mg, Intravenous, EVERY 4 HOURS PRN, Itching, Starting on Wed12/25/14 at 1615, Until Wed12/26/14 at 0914, PRN for itching. Maximum dose is 50mg/4hours. Maximum intravenous rate = 25 mg/min. $ Given 12/25/2014 9:06 PM CDT 25 mg docusate sodium (COLACE) capsule 100 mg 100 mg, Oral, 2 TIMES DAILY, First dose on Wed12/26/14 at 0045, Until Discontinued, $ Given 12/28/2014 8:04 AM CDT 100 mg $ Given 12/27/2014 9:07 PM CDT 100 mg $ Given 12/27/2014 8:43 AM CDT 100 mg fentanyl 5 mcg/ml and ropivicaine 0.2% epidural 12 mL/hr, Epidural, CONTINUOUS, Starting on Wed12/25/14 at 1700, Until Wed12/26/14 at 0031, May bolus 8cc every hour x 3 doses for breakthrough pain, if unrelieved, please call anesthesia Bolus Current Bag/Med 12/25/2014 10:58 PM CDT 12 mL/hr 12 mL/hr Bolus Current Bag/Med 12/25/2014 8:54 PM CDT 12 mL/hr 12 mL/hr $ New Bag/Syringe 12/25/2014 5:01 PM CDT 12 mL/hr 12 mL/ hr ibuprofen (MOTRIN) tablet 600 mg 600 mg, Oral, EVERY 6 HOURS, First dose on Wed12/26/14 at 0045, Until Discontinued, Maximum allowable amount = 3200 mg / 24 hours., $ Given 12/28/2014 6:50 AM CDT 600 mg $ Given 12/28/2014 12:12 AM CDT 600 mg $ Given 12/27/2014 6:16 PM CDT 600 mg labetalol (NORMODYNE; TRANDATE) tablet 100 mg 100 mg, Oral, 3 TIMES DAILY (diuretics and nitrates), First dose on Wed12/27/14 at 0845, Until Discontinued $ Given 12/28/2014 8:04 AM CDT 100 mg $ Given 12/27/2014 9:07 PM CDT 100 mg $ Given 12/27/2014 12:45 PM CDT 100 mg lactated ringers infusion at 75 mL/hr, Intravenous, CONTINUOUS, Starting on Wed12/25/14 at 1000, Until Wed12/26/14 at 0031, Start IV with 18 gauge angiocath. Rate Change 12/25/2014 11:56 PM CDT 25 mL/hr 25 mL /hr $ New Bag/Syringe 12/25/2014 9:50 AM CDT 75 mL/ hr lactated ringers infusion at 125 mL/hr, Intravenous, CONTINUOUS, Starting on Wed12/26/14 at 0045, Until Wed12/28/14 at 1317, Start IV with 18 gauge angiocath., $ New Bag/Syringe 12/26/2014 6:08 AM CDT 75 mL/hr 75 mL/hr magnesium sulfate in sterile water IVPB 4 g 4 g, at 12.5 mL/hr, Administer over 240 Minutes, Intravenous, BOLUS IV, 1 dose, On Wed12/25/14 at 0930, Run over 20-30 minutes. Maximum rate of 2g/10 minutes. Monitor BP, Pulse, and Respirations every 5 minutes, and assess for the following side effects: - CORRUGATED SHEET MATERIAL SHEETER Depression - Chest Pain - Palpitations - Flushing - Nausea - Vomiting - Headache - Blurred Vision - Respiratory Depression -Pulmonary Edema $ Given 12/25/2014 10:05 AM CDT 4 g 12.5 mL/hr magnesium sulfate infusion in sterile IV fluid 2 g/hr (50 mL/hr), Intravenous, CONTINUOUS, Starting on Wed12/25/14 at 0945, Until Wed12/28/14 at 1317, 2 g/hr = 50 ml/hr $ New Bag/Syringe 12/27/2014 5:52 AM CDT 2 g/hr 50 mL/hr $ New Bag/Syringe 12/26/2014 5:57 PM CDT 2 g/hr 50 mL/ hr $ New Bag/Syringe 12/26/2014 6:35 AM CDT 2 g/hr 50 mL/ hr misoprostol (CYTOTEC) tablet 25 mcg 25 mcg, Vaginal, EVERY 4 HOURS PRN, Cervical Ripening, Starting on Wed12/25/14 at 0920, Until Wed12/25/14 at 1854, Place in vagina. Patient to be on bedrest for 30 minutes. $ Given 12/25/2014 2:29 PM CDT 25 mcg $ Given 12/25/2014 10:35 AM CDT 25 mcg ondansetron (ZOFRAN) injection 4 mg 4 mg, Intravenous, EVERY 6 HOURS PRN, Nausea/Vomiting, Starting on Wed12/25/14 at 0917, Until Wed12/26/14 at 0914 $ Given 12/25/2014 11:44 PM CDT 4 mg $ Given 12/25/2014 7:13 PM CDT 4 mg oxyCODONE-acetaminophen (PERCOCET) 5-325 MG tablet 1-2 Tab 1-2 tablet, Oral, EVERY 4 HOURS PRN, Moderate Pain, Starting on Wed12/26/14 at 1315, Until Wed12/28/14 at 1317, $ Given 12/27/2014 6:19 PM CDT 1 tablet $ Given 12/27/2014 1:33 AM CDT 1 tablet $ Given 12/26/2014 5:56 PM CDT 2 tablets oxyCODONE-acetaminophen (PERCOCET) 5-325 MG tablet 2 Tab 2 tablet, Oral, EVERY 4 HOURS PRN, Moderate Pain, Starting on Wed12/26/14 at 0021, Until Wed12/26/14 at 1315, $ Given 12/26/2014 11:26 AM CDT 1 tablet $ Given 12/26/2014 2:31 AM CDT 1 tablet oxytocin (PITOCIN) 30 units in 500 ml LR infusion 0-20 rosetta-units/min (0-20 mL/hr), Intravenous, CONTINUOUS, Starting on Wed12/25/14 at 1930, Until Wed12/26/14 at 0031, 1. 1-20 milliunits/min, IV, Cont., Titrate Oxytocin by 2 miliunits/min every 30 minutes starting at 2 milliunits/min until contractions are 2-3 minutes apart, but not to exceed 5 contractions in ten minutes, or to a max infusion rate of 20 milliunits/min and heart tracing is reassuring. 2. May decrease Oxytocin by half of current dose at the time of rupture of membranes once verified with provider. 3. Discontinue Oxytocin immediately for abnormal or indeterminate status. Bolus Current Bag/Med 12/25/2014 11:56 PM CDT 999 rosetta-units/mi n 999 mL/hr Rate Change 12/25/2014 7:50 PM CDT 4 rosetta-units/min 4 mL/ hr $ New Bag/Syringe 12/25/2014 7:19 PM CDT 2 rosetta-units/min 2 mL/hr oxytocin (PITOCIN) 30 units in 500 ml LR infusion 125-1,000 mL/hr, Intravenous, CONTINUOUS, Starting on Wed12/26/14 at 0045, Until Wed12/26/14 at 0444, Infuse first bag post-delivery at 1,000 ml/hr, then decrease rate to 125 ml/hr until discontinued, at 125-1,000 mL/hr., $ New Bag/Syringe 12/26/2014 12:50 AM CDT 75 mL/hr 75 mL/hr vitamin with iron tablet 1 Tab 1 tablet, Oral, DAILY WITH BREAKFAST, First dose on Wed12/26/14 at 0800, Until Discontinued, $ Given 12/28/2014 8:04 AM CDT 1 tablet $ Given 12/27/2014 8:43 AM CDT 1 tablet $ Given 12/26/2014 8:23 AM CDT 1 tablet witch opal-glycerin (TUCKS) (TUCKS MEDICATED COOLING) 50 % pad Topical, PRN, Hemorrhoids, Starting on Wed12/26/14 at 0406, Until Wed12/28/14 at 1317 $ Given 12/26/2014 4:25 AM CDT documented in this encounter Active and Recently Administered Medications Times are shown in CDT. Scheduled Medication Order 12/26/2014 12/27/2014 12/28/2014 docusate sodium (COLACE) capsule 100 mg (CANCELED) 100 mg, Oral, 2 TIMES DAILY, First dose on Wed12/26/14 at 0045, Until Discontinued, 0045 (Not Administered - Provider: Dennis Mehta RN - Reason: Patient Condition)0823 ($ Given - Provider: Elisha Quick RN) 0132 ($ Given - Provider: James Reyes)0843 ($ Given - Provider: Krystin Cruz RN)2107 ($ Given - Provider: James Reyes) 0804 ($ Given - Provider: Domingo Avalos, NANCY) ibuprofen (MOTRIN) tablet 600 mg 600 mg, Oral, EVERY 6 HOURS, First dose on Wed12/26/14 at 0045, Until Discontinued, Maximum allowable amount = 3200 mg / 24 hours., 0045 ($ Given - Provider: Dennis Mehta RN)0604 ($ Given - Provider: Dennis Mehta RN)1127 ($ Given - Provider: Elisha Quick, NANCY)1756 ($ Given - Provider: Lorna Asencio RN) 0132 ($ Given - Provider: James Reyes)0658 ($ Given - Provider: Zuleyma Elena RN)1245 ($ Given - Provider: Krystin Cruz RN)1816 ($ Given - Provider: Johanna Romero RN) 0012 ($ Given - Provider: James Reyes)0650 ($ Given - Provider: James Reyes)1200 (Due) labetalol (NORMODYNE; TRANDATE) tablet 100 mg 100 mg, Oral, 3 TIMES DAILY (diuretics and nitrates), First dose on Linda 12/27/14 at 0845, Until Discontinued 0843 ($ Given - Provider: Krystin Cruz RN)1245 ($ Given - Provider: Krystin Cruz RN)2107 ($ Given - Provider: James Reyes) 0804 ($ Given - Provider: Domingo Avalos RN)1200 (Due) vitamin with iron tablet 1 Tab (CANCELED) 1 tablet, Oral, DAILY WITH BREAKFAST, First dose on Wed12/26/14 at 0800, Until Discontinued, 0823 ($ Given - Provider: Elisha Quick, NANCY) 0843 ($ Given - Provider: Krystin Cruz RN) 0804 ($ Given - Provider: Domingo Avalos RN) Continuous Medication Order 12/26/2014 12/27/2014 12/28/2014 lactated ringers infusion (CANCELED) at 125 mL/hr, Intravenous, CONTINUOUS, Starting on Wed12/26/14 at 0045, Until Wed12/28/14 at 1317, Start IV with 18 gauge angiocath., 0045 (Not Administered - Provider: Dennis Mehta RN - Reason: IV Currently Infusing)0053 (Stopped - Provider: Dennis Mehta RN - Comment: Has Pitocin & Magnesium Sulfate infusing at this time so LR stopped for now.)0608 ($ New Bag/Syringe - Provider: Dennis Mehta RN - Comment: total IV fluids not to be over 125 cc/hr. Mag sulfate running @ 50 cc/hr also) magnesium sulfate infusion in sterile IV fluid (CANCELED) 2 g/hr (50 mL/hr), Intravenous, CONTINUOUS, Starting on Wed12/25/14 at 0945, Until Wed12/28/14 at 1317, 2 g/hr = 50 ml/hr 0634 (Stopped - Provider: Dennis Mehta RN)0635 ($ New Bag/Syringe - Provider: Dennis Mehta RN)1757 ($ New Bag/Syringe - Provider: Lorna Asencio RN) 0552 ($ New Bag/Syringe - Provider: James Reyes) oxytocin (PITOCIN) 30 units in 500 ml LR infusion () 125-1,000 mL/hr, Intravenous, CONTINUOUS, Starting on Wed12/26/14 at 0045, Until Wed12/26/14 at 0444, Infuse first bag post-delivery at 1,000 ml/hr, then decrease rate to 125 ml/hr until discontinued, at 125-1,000 mL/hr., 0050 ($ New Bag/Syringe - Provider: Dennis Mehta RN - Comment: total IV fluids/hr to be 125 ml total. Has Magnesium sulfate infusing @ 50 cc/hr)0606 (Stopped - Provider: Dennis Mehta RN - Comment: infusion complete at this time) PRN Medication Order 12/26/2014 12/27/2014 12/28/2014 benzocaine-menthol (DERMOPLAST) spray (CANCELED) Topical, PRN, Mild Pain, Moderate Pain, for perineal discomfort, Starting on Wed12/26/14 at 0405, Until Wed12/28/14 at 1317, . WASTE DISPOSAL INSTRUCTION: Send to Pharmacy for Disposal. . 0425 ($ Given - Provider: Dennis Mehta RN) oxyCODONE-acetaminophen (PERCOCET) 5-325 MG tablet 1-2 Tab (CANCELED) 1-2 tablet, Oral, EVERY 4 HOURS PRN, Moderate Pain, Starting on Wed12/26/14 at 1315, Until Wed12/28/14 at 1317, 1756 ($ Given - Provider: Lorna Asencio RN) 0133 ($ Given - Provider: James Reyes)1819 ($ Given - Provider: Johanna Romero RN) oxyCODONE-acetaminophen (PERCOCET) 5-325 MG tablet 2 Tab (CANCELED) 2 tablet, Oral, EVERY 4 HOURS PRN, Moderate Pain, Starting on Wed12/26/14 at 0021, Until Wed12/26/14 at 1315, 0231 ($ Given - Provider: Dennis Mehta RN - Comment: Pt only wanted 1 tab instead of 2)1126 ($ Given - Provider: Elisha Quick, NANCY) witch opal-glycerin (TUCKS) (TUCKS MEDICATED COOLING) 50 % pad (CANCELED) Topical, PRN, Hemorrhoids, Starting on Wed12/26/14 at 0406, Until Wed12/28/14 at 1317 0425 ($ Given - Provider: Dennis Mehta, RN) documented in this encounter Care Teams Handbag Finisher Relationship Specialty Start Date End Date Sena Ulrich APRN-CNM [facility] [place] [phone] PCP - General Nurse Practitioner 09/13/14 03/06/18 documented as of this encounter
--- OUTSIDE RECORDS SUMMARY | 2024-05-04 16:50 | XMS_ITS | Encounter Summary ---
Author Organization [facility] Address [address] [place] [address] Care Team Providers Care Obiee Lead Developer Name Role Phone Deb oMntenegro MD Primary Care Provider + [phone] Reason for Visit * Reason Comments Refill Request Encounter Details Date Type Department Care Team (Late st Contact Info) Description 05/18/2023 Refill [facility] - BLUEPRINT BLOCKER [address] [place] [phone] Flaco Rosales MD [address] [place] [phone] Refill Request Social History Tobacco Use Types [...] encounter Miscellaneous Notes * Telephone Encounter - Vanna Vanegas MA - 05/18/2023 3:18 PM CST MELISSA 05/15/2022 LF 05/15/2022 Future apt no Requested Prescriptions Pending Prescriptions Disp Refills ??? Loryna 3-0.02 MG tablet [Pharmacy Med Name: LORYNA 3-0.02MG TABLET] 84 tablet 4 Sig: TAKE ONE TABLET BY MOUTH DAILY R BOX MAKER documented in this encounter Plan of Treatment Upcoming Encounters Date Type Department Care Team (Late st Contact Info) Description 05/12/2024 9:30 AM PAPER BOX MAKER Appointment [facility] Breast [place] [address] [place] [address] Flaco Rosales MD [address] [place] [phone] 05/24/2024 7:00 AM PAPER BOX MAKER Procedure visit [facility] - BLUEPRINT BLOCKER [address] [place] [phone] 06/07/2024 9:45 AM PAPER BOX MAKER Office Visit [facility] - BLUEPRINT BLOCKER [address] [place] [phone] Flaco Rosales MD [address] [place] [phone] 07/11/2024 12:00 PM PAPER BOX MAKER Video Visit [facility] - Family Medicine [address] [facility] [place] [phone] Deb Montenegro MD [address] [place] [phone] documented as of this encounter Visit Diagnoses Not on filedocumented in this encounter Care Teams Obiee Lead Developer Relationship Specialty Start Date End Date Deb Montenegro MD [address] [place] [phone] PCP - General Family Medicine 05/13/22 documented as of this encounter
--- OUTSIDE RECORDS SUMMARY | 2024-05-04 16:50 | XMS_ITS | Encounter Summary ---
Author Organization [facility] Address [address] [facility] [place] [address] Care Team Providers Care Key Account Director Name Role Phone Sena Moreno [facility] Primary Care Provider [phone] Reason for Visit * Reason Onset Date Comments Procedure Prior Auth Request 09/27/2014 Encounter Details Date Type Department Care Team (Late st Contact Info) Description 09/27/2014 Telephone [facility] Heart & Vascular Care [address] [place] [address] Volodymyr Salmon MD [address] [place] [address] Procedure Prior Auth Request Social History Tobacco Use Types Packs/Day Years Used Date Smoking Tobacco: Former Cigarettes Alcohol Use Standard Drinks/Week Comments No 0 (1 standard drink = 0.6 oz pur e alcohol) Comments Yes Sex and Gender Information Value Date Recorded Sex Assigned at Not on file Gender Identity Not on file Sexual Orientation Not on file documented as of this encounter Miscellaneous Notes * Telephone Encounter - Janelle Pablo RN - 09/27/2014 4:01 PM CDT Spoke with Jordin with [employer]. States no prior auth needed for CPT code 82527. States they do not use reference numbers but may refer to her first name regarding this request. documented in this encounter Plan of Treatment Upcoming Encounters Date Type Department Care Team (Late st Contact Info) Description 05/12/2024 9:30 AM DRUG ROOM CLERK Appointment [facility] Breast Care [address] [place] [address] Flaco Rosales MD [address] [place] [phone] 05/24/2024 7:00 AM DRUG ROOM CLERK Procedure visit [facility] - SAFETY SITTER [address] [place] [phone] 06/07/2024 9:45 AM DRUG ROOM CLERK Office Visit [facility] - SAFETY SITTER [address] [place] [phone] Flaco Rosales MD [address] [place] [phone] 07/11/2024 12:00 PM DRUG ROOM CLERK Video Visit [facility] - Family Medicine [address] [facility] [address] [place] [place] [address] Deb Montenegro MD [address] [facility] [place] [phone] documented as of this encounter Visit Diagnoses Not on filedocumented in this encounter Care Teams Key Account Director Relationship Specialty Start Date End Date Sena Moreno APRN-CNM [address] [facility] [place] [phone] PCP - General Nurse Practitioner 09/13/14 03/06/18 documented as of this encounter
--- OUTSIDE RECORDS SUMMARY | 2024-05-04 16:50 | XMS_ITS | Encounter Summary ---
Author Organization [facility] Address [address] [facility] [place] [address] Care Team Providers Care Naval Inspector Name Role Phone Deb Montenegro MD Primary Care Provider + [phone] Reason for Visit * Reason Comments Refill Request Encounter Details Date Type Department Care Team (Late st Contact Info) Description 04/18/2024 Refill [facility] - Family Medicine [address] [place] [address] Deb Montenegro MD [address] [place] [phone] Refill Request Social History Tobacco Use Types [...] encounter Miscellaneous Notes * Telephone Encounter - Mylene Mckinley - 04/18/2024 5:12 PM CST Mychart message sent for refill/appt DOES NOT MEET PROTOCOL - SENT TO PROVIDER FOR REVIEW Last Office Visit with PCP: 07/15/2022 / [place] Last Video Visit with PCP: Visit date not found Next Appointment with PCP: 04/18/24 Dr. PORTER Follow-up: past due Date of last refill: 08/18/23 Please advise GY MANAGER documented in this encounter Plan of Treatment Upcoming Encounters Date Type Department Care Team (Late st Contact Info) Description 05/12/2024 9:30 AM ENERGY MANAGER Appointment [facility] Breast [address] [place] [address] Flaco Rosales MD [address] [place] [phone] 05/24/2024 7:00 AM ENERGY MANAGER Procedure visit [facility] - CHEMICAL COMPOUNDER [address] [place] [phone] 06/07/2024 9:45 AM ENERGY MANAGER Office Visit [facility] - CHEMICAL COMPOUNDER [address] [place] [phone] Flaco Rosales MD [address] [place] [phone] 07/11/2024 12:00 PM ENERGY MANAGER Video Visit [facility] - Family Medicine [address] [facility] [place] [address] Deb Montenegro MD [address] [facility] [place] [phone] documented as of this encounter Visit Diagnoses Diagnosis CASSIDY (generalized anxiety disorder) Generalized anxiety disorder documented in this encounter Care Teams Naval Inspector Relationship Specialty Start Date End Date Deb Montenegro MD [address] [place] [phone] PCP - General Family Medicine 05/13/22 documented as of this encounter
--- OUTSIDE RECORDS SUMMARY | 2024-05-04 16:50 | XMS_ITS | Encounter Summary ---
Author Organization [facility] Address [address] [facility] [place] [address] Care Team Providers Care Bumper Straightener Name Role Phone Deb Montenegro MD Primary Care Provider + [phone] Encounter Details Date Type Department Care Team (Late st Contact Info) Description 07/31/2022 Orders Only [facility] - Family Medicine [address] [place] [address] Deb Montenegro MD [address] [place] [phone] CASSIDY (generalized anxiety disorder) Social History Tobacco [...] Coronavirus/COVID-19? No / Unsure 07/15/2022 8:10 AM ALMOND CUTTING MACHINE TENDER documented as of this encounter Functional Status [...] st Contact Info) Description 05/12/2024 9:30 AM ALMOND CUTTING MACHINE TENDER Appointment [facility] Breast [place] [address] [place] [address] Flaco Rosales MD [address] [place] [phone] 05/24/2024 7:00 AM ALMOND CUTTING MACHINE TENDER Procedure visit [facility] - ASSOCIATE PROGRAMMER ANALYST [address] [place] [phone] 06/07/2024 9:45 AM ALMOND CUTTING MACHINE TENDER Office Visit [facility] - ASSOCIATE PROGRAMMER ANALYST [address] [phone] Flaco Rosales MD [address] [place] [phone] 07/11/2024 12:00 PM ALMOND CUTTING MACHINE TENDER Video Visit [facility] - Family Medicine [address] [facility] [place] [address] Deb Montenegro MD [address] [place] [phone] documented as of this encounter Visit Diagnoses Diagnosis CASSIDY (generalized anxiety disorder)- Primary Generalized anxiety disorder documented in this encounter Care Teams Bumper Straightener Relationship Specialty Start Date End Date Deb Montenegro MD [address] [place] [phone] PCP - General Family Medicine 05/13/22 documented as of this encounter
--- OUTSIDE RECORDS SUMMARY | 2024-05-04 16:50 | XMS_ITS | Patient Health Summary ---
Author Organization [facility] Impact D[employer]en Address [address] [place] [address] Care Team Providers Care Health Administration Teacher Name Role Phone Deb Montenegro MD Primary Care Provider [phone] [facility],non-owned Affiliates and Associated Physician Practices is amultiple site organization consisting of ambulatory clinics and hospital sitesin [place], [place], [place] and [place]. This disclosure is being madepursuant to the Care Everywhere program and may not contain all information available regarding this patient. Last updated 18.[facility] Allergies No known active allergies Medications * Be aware that medications may not be up to date on this document. Alwaysverify current medications with the patient. * Multiple Vitamins-Minerals (MULTIVITAMIN ADULT PO) 1 gummy vitamin daily * dicyclomine (Bentyl) 10 MG capsule(Started 05/19/2022) Take 1 (one) capsule by mouth 4 times daily 1 refill by 05/19/2023 * Loryna 3-0.02 MG tablet(Started 05/21/2023) TAKE ONE TABLET BY MOUTH DAILY * sertraline (Zoloft) 100 MG tablet(Started 04/19/2024) Take 1 (one) tablet by mouth once daily Ended Medications* sertraline (Zoloft) 100 MG tablet(Started 05/19/2023) (Discontinued) Take 1 (one) tablet by mouth once daily 1 refill by 05/18/2024 Active Problems Problem Noted Date Diagnosed Date Well woman exam with routine gynecological exam 04/05/2024 Contraceptive education 05/15/2022 Personal history of kidney stones 05/13/2022 Nausea and vomiting 05/13/2022 CASSIDY (generalized anxiety disorder) 05/13/2022 H/O repair of patent ductus arteriosus S/P repair of coarctation of aorta 05/13/2022 Normal , first 12/24/2014 Gestational hypertension 12/24/2014 Scoliosis 09/04/2014 Immunizations * INFLUENZA VACCINE, QUADR. (FLUZONE; FLULAVAL; FLUARIX; AFLURIA QUADRIVALENT; 6MO+), 0.5 ML (IIV4)(Given 03/14/2018) * TDAP (7yrs+)(Given 12/26/2014) * iNFLUENZA VACCINE, RECOM-TORRES, QUADR. (FLUBLOCK QUADRIVALENT; 18Y+) (RIV4)(Given 03/01/2019) Social History Tobacco Use Types Packs/Day Years [...] Comments Blood Pressure 120/76 04/05/2024 2:59 PM BANQUET SERVER Pulse 103 07/15/2022 8:20 AM BANQUET SERVER Temperature 36.4 ??C (97.6 ??F) 07/15/2022 8:20 AM CS T Respiratory Rate 20 03/07/2018 3:42 PM CDT Oxygen Saturation 99% 07/15/2022 8:20 AM BANQUET SERVER Inhaled Oxygen Concentration - - Weight 53.1 kg (117 lb) 04/05/2024 2:59 PM BANQUET SERVER Height 167.6 cm (5' 6 ) 04/05/2024 2:59 PM BANQUET SERVER Body Mass Index 18.88 04/05/2024 2:59 PM BANQUET SERVER Procedures * PAP IG LB RFLX HPV APTIMA ASCU(Performed 04/05/2024) Performed for Well woman exam with routine gynecological exam * HIV-1 HIV-2 ANTIBODY + HIV P24 AG PANEL(Performed 05/14/2022) Performed for Encounter for screening for HIV * LIPASE BLOOD(Performed 05/14/2022) Performed for Nausea and vomiting, unspecified vomiting type * TSH+FREE T4+FREE T3(Performed 05/14/2022) Performed for Nausea and vomiting, unspecified vomiting type * COMPREHENSIVE METABOLIC PANEL(Performed 05/14/2022) Performed for Nausea and vomiting, unspecified vomiting type * CBC W AUTO DIFFERENTIAL(Performed 05/14/2022) Performed for Nausea and vomiting, unspecified vomiting type * HEPATITIS C ANTIBODY(Performed 05/14/2022) Performed for Encounter for hepatitis C screening test for low risk patient * SARS-COV-2 (COVID-19) IN HOUSE(Performed 01/25/2020) Performed for Exposure to SARS-associated coronavirus * EKG 12-LEAD(Performed 03/20/2019) Performed for Coarctation of aorta (preductal) (postductal) (HCC) * CT ABDOMEN PELVIS W CONTRAST(Performed 03/07/2018) Performed for Abdominal pain, right lower quadrant * URINALYSIS REFLEX MICROSCOPIC REFLEX CULTURE(Performed 03/07/2018) * DIFFERENTIAL MANUAL(Performed 03/07/2018) * PT PTT PANEL(Performed 03/07/2018) * LIPASE BLOOD(Performed 03/07/2018) * COMPREHENSIVE METABOLIC PANEL(Performed 03/07/2018) * CBC W AUTO DIFFERENTIAL(Performed 03/07/2018) * HCG URINE QUALITATIVE - POCT (IP) BEAKER - ILL(Performed 03/07/2018) * LAB RESULTS ORDER(Performed 06/06/2015) * PATHOLOGY/CYTOLOGY REPORT ORDER(Performed 12/28/2014) * LAB RESULTS ORDER(Performed 12/27/2014) * CBC W AUTO DIFFERENTIAL(Performed 12/26/2014) * GROSS + MICRO EXAM (ILL)(Performed 12/25/2014) * NEURAXIAL BLOCK(Performed 12/25/2014) * TYPE + SCREEN PANEL(Performed 12/25/2014) * RPR(Performed 12/25/2014) * BLOOD TYPE VERIFICATION(Performed 12/25/2014) * URIC ACID BLOOD(Performed 12/25/2014) Performed for Hypertension affecting , third trimester (HCC) * COMPREHENSIVE METABOLIC PANEL(Performed 12/25/2014) Performed for Hypertension affecting , third trimester (HCC) * CBC W AUTO DIFFERENTIAL(Performed 12/25/2014) Performed for Hypertension affecting , third trimester (HCC) * PTT(Performed 12/24/2014) Performed for Hypertension affecting , third trimester ([facility]) * PT-INR(Performed 12/24/2014) Performed for Hypertension affecting , third trimester (HCC) * US UTERUS LIMITED(Performed 12/24/2014) Performed for Hypertension affecting , third trimester ([facility]) * US OB BIOPHYSICAL PROFILE(Performed 12/24/2014) Performed for Hypertension affecting , third trimester ([facility]) * URIC ACID BLOOD(Performed 12/24/2014) Performed for Hypertension affecting , third trimester ([facility]) * COMPREHENSIVE METABOLIC PANEL(Performed 12/24/2014) Performed for Hypertension affecting , third trimester ([facility]) * CBC W AUTO DIFFERENTIAL(Performed 12/24/2014) Performed for Hypertension affecting , third trimester ([facility]) * PROTEIN CREATININE RATIO URINE RANDOM PNL(Performed 12/24/2014) Performed for Hypertension affecting , third trimester ([facility]) * URINALYSIS REFLEX MICROSCOPIC REFLEX CULTURE(Performed 12/24/2014) Performed for Hypertension affecting , third trimester ([facility]) * LAB RESULTS ORDER(Performed 10/27/2014) * WV ELECTROCARDIOGRAM, COMPLETE(Performed 09/26/2014) Performed for Claudication ([facility]) * EKG 12-LEAD(Performed 09/26/2014) Performed for Claudication ([facility]) * ECHOCARDIOGRAM 2D WITH DOPPLER(Performed 09/14/2014) Performed for History of aortic coarctation repair * LAB RESULTS ORDER(Performed 07/27/2014) * KETONES QUALITATIVE URINE AUTO(Performed 06/15/2014) * URINE MICROSCOPIC ONLY REFLEX TO CULTURE(Performed 06/15/2014) * URINALYSIS REFLEX MICROSCOPIC REFLEX CULTURE(Performed 06/15/2014) * CULTURE URINE(Performed 06/15/2014) * INFLUENZA A+B ANTIGEN RAPID(Performed 06/15/2014) * COMPREHENSIVE METABOLIC PANEL(Performed 06/14/2014) * CBC W AUTO DIFFERENTIAL(Performed 06/14/2014) * LAB RESULTS ORDER(Performed 06/11/2014) * LAB RESULTS ORDER(Performed 06/03/2014) * HCG URINE QUALITATIVE - POCT (IP) BEAKER - ILL(Performed 05/29/2014) * URINE MICROSCOPIC ONLY REFLEX TO CULTURE(Performed 05/29/2014) * URINALYSIS REFLEX MICROSCOPIC REFLEX CULTURE(Performed 05/29/2014) * LIPASE BLOOD(Performed 05/29/2014) * COMPREHENSIVE METABOLIC PANEL(Performed 05/29/2014) * CBC W AUTO DIFFERENTIAL(Performed 05/29/2014) Results * PAP IG LB RFLX HPV APTIMA ASCU (04/05/2024 3:37 PM BANQUET SERVER) Diagnosis Comment [facility] ACCOUNT BILL Comment:NEGATIVE FOR [...] UTERINE CERVIX / Unknown 04/05/2024 3:37 PM BANQUET SERVER 04/05/2024 Comment:Cervix Release to pa t Narrative [facility] ACCOUNT BILL - 04/12/2024 11:13 AM BANQUET SERVER Performed at: ??01 - [facility] ??[id number] Epitaxial Reactor Operator: Keena Montejo MD, Phone: ??[phone] Specimen Comment: [id number] Specimen Comment: No. of containers..01 ThinPrep Vial Flaco Rosales MD LAB - PATHOLOGY/CYTO LOGY ORDERABLES [facility] ACCOUNT BILL [address] [place] [address] * TSH+FREE T4+FREE T3 (05/14/2022 11:17 AM BANQUET SERVER) TSH 0.6719 0.35 - 4.94 uIU/mL [facility] ACCOUNT BILL T3 Free 3.16 1.58 - 3.91 pg/mL [facility] ACCOUNT BILL T4 Free 1.15 0.70 - 1.48 ng/dL [facility] ACCOUNT BILL Comment:FASTING Blood BLOOD SPECIMEN / Unknown 05/14/2022 11:17 AM BANQUET SERVER 05/14/2022 Narrative Resulting Agency Comment Lab Testing performed at: [facility] [address] [facility] ??[facility] [id number] Deb Montenegro MD LAB - CHEMISTRY CASSY SMITH Performing Organization Address City/[facility] Co de Phone Number [facility] ACCOUNT BILL [address] [place] [address] * HIV-1 HIV-2 ANTIBODY + HIV P24 AG PANEL (05/14/2022 11:17 AM BANQUET SERVER) [facility] HIV Screen 4th Generation w Reflex Non Reactive Non Reactive [facility] ACCOUNT BILL Comment: HIV Negative HIV-1/HIV-2 antibodies and HIV-1 p24 antigen were NOT detected. There is no laboratory evidence of HIV infection. FASTING Blood BLOOD SPECIMEN / Unknown 05/14/2022 11:17 AM BANQUET SERVER 05/14/2022 Narrative Resulting Agency Comment Lab Testing performed at: [facility] [address] [place] [address] ??[facility] [phone] Deb Montenegro MD LAB - CHEMISTRY CASSY SMITH Performing Organization Address City/[facility] Co de Phone Number [facility] ACCOUNT BILL [address] [place] [address] * CBC WITH DIFFERENTIAL (05/14/2022 11:17 AM BANQUET SERVER) Only the most recent of7 resultswithin the time period is included. [facility] WBC 4.4 4.4 - 10.7 x10E9/L [facility] ACCOUNT BILL RBC 4.86 3.80 - 5.20 x10E12/L [facility] ACCOUNT BILL Hemoglobin 14.5 12.0 - 15.6 gm/dL [facility] ACCOUNT BILL Hematocrit 44.0 35.9 - 45.5 % [facility] ACCOUNT BILL MCV 90.5 80.7 - 98.3 fl [facility] ACCOUNT BILL MCH 29.8 26.7 - 34.0 pg [facility] ACCOUNT BILL MCHC 33.0 30.8 - 35.9 gm/dL [facility] ACCOUNT BILL RDW 12.1 12.1 - 14.9 % [facility] ACCOUNT BILL Platelet Count 347 153 - 416 x10E9/L [facility] ACCOUNT BILL Comment:MPV FL BLOOD ([facility]) 9 .6 fl 9.4-12.9 Granulocytes % 51.0 44.0 - 73.0 % [facility] ACCOUNT BILL Lymphocytes % 40.5 20.0 - 43.0 % [facility] ACCOUNT BILL Monocytes % 7.1 5.0 - 13.0 % [facility] ACCOUNT BILL Eosinophils % 0.5 0.0 - 6.0 % [facility] ACCOUNT BILL Basophils % 0.7 0.0 - 2.0 % [facility] ACCOUNT BILL Granulocytes Absolute 2.23 2.01 - 7.14 x10E9/L [facility] ACCOUNT BILL Lymphocytes Absolute 1.77 1.07 - 3.94 x10E9/L [facility] ACCOUNT BILL Monocytes Absolute 0.31 0.26 - 1.07 x10E9/L [facility] ACCOUNT BILL Eosinophils Absolute 0.02 0 - 0.47 x10E9/L [facility] ACCOUNT BILL Basophils Absolute 0.03 0 - 0.08 x10E9/L [facility] ACCOUNT BILL Immature Granulocytes 0.2 0 - 1 % [facility] ACCOUNT BILL Immature Granulocytes Absolute 0.01 0.00 - 0.06 x10E9/L [facility] ACCOUNT BILL nRBC 0 /100 WBC [facility] ACCOUNT BILL Comment: FASTING Blood BLOOD SPECIMEN / Unknown 05/14/2022 11:17 AM BANQUET SERVER 05/14/2022 Narrative Resulting Agency Comment Lab Testing performed at: [facility] [address] ?? [facility] [phone] Deb Montenegro MD LAB - HEMATOLOGY ORD ERABLES [facility] ACCOUNT BILL [address] [place] [address] * COMPREHENSIVE METABOLIC PANEL (05/14/2022 11:17 AM BANQUET SERVER) Only the most recent of6 resultswithin the time period is included. Glucose 88 70 - 105 mg/dL [facility] ACCOUNT BILL BUN 8 7 - 18.7 mg/dL [facility] ACCOUNT BILL Creatinine 0.83 0.57 - 1.11 mg/dL [facility] ACCOUNT BILL eGFR by CKD-EPI >90 >=90 mL/min/1.7 3 m2 [facility] ACCOUNT BILL Sodium 138 136 - 145 mmol/L [facility] ACCOUNT BILL Potassium 4.4 3.5 - 5.1 mmol/L [facility] ACCOUNT BILL Chloride 106 98 - 107 mmol/L [facility] ACCOUNT BILL CO2 23 23 - 31 mmol/L [facility] ACCOUNT BILL Calcium 9.6 8.4 - 10.4 mg/dL [facility] ACCOUNT BILL Protein Total 7.5 6.4 - 8.3 gm/dL [facility] ACCOUNT BILL Albumin 4.7 3.5 - 5.2 gm/dL [facility] ACCOUNT BILL Bilirubin Total 0.7 0.2 - 1.2 mg/dL [facility] ACCOUNT BILL Alkaline Phosphatase 41 40 - 150 U/L [facility] ACCOUNT BILL AST 25 5 - 34 U/L [facility] ACCOUNT BILL ALT 35 0 - 61 U/L [facility] ACCOUNT BILL Comment:FASTING Blood BLOOD SPECIMEN / Unknown 05/14/2022 11:17 AM BANQUET SERVER 05/14/2022 Narrative Resulting Agency Comment Lab Testing performed at: [address] [place] ?? [facility] [phone] Deb Montenegro MD LAB - CHEMISTRY CASSY SMITH [facility] ACCOUNT BILL [address] [place] [address] * LIPASE BLOOD (05/14/2022 11:17 AM BANQUET SERVER) Only the most recent of3 resultswithin the time period is included. Lipase 9 8 - 78 U/L [facility] ACCOUNT BILL Comment: FASTING Blood BLOOD SPECIMEN / Unknown 05/14/2022 11:17 AM BANQUET SERVER 05/14/2022 Narrative Resulting Agency Comment Lab Testing performed at: [facility] [address] ?? [facility] [phone] Deb Montenegro MD LAB - CHEMISTRY CASSY SMITH [facility] ACCOUNT BILL [address] [place] [address] * HEPATITIS C ANTIBODY (05/14/2022 11:16 AM BANQUET SERVER) Pathologist [facility] Hepatitis C Antibody Non Reactive Non Reactive [facility] ACCOUNT BILL Comment: Non Reactive - Antibodies to Hepatitis C virus (HCV) were no t detected, result does not exclude early acute HCV infection. FASTING Blood BLOOD SPECIMEN / Unknown 05/14/2022 11:16 AM BANQUET SERVER 05/14/2022 Narrative Resulting Agency Comment Lab Testing performed at: [facility] [address] [facility] ??[facility] [phone] Deb Montenegro MD LAB - CHEMISTRY CASSY SMITH Performing Organization Address City/[facility]/ZIP Co de Phone Number [facility] ACCOUNT BILL [address] [place] [address] * SARS-COV-2 (COVID-19) STL MICRO (01/25/2020 7:56 AM CDT) Pathologist [facility] COVID-19 PCR Not detected Not detected, Invalid 01/27/2020 2:31 PM CDT [facility] Microbiology SPECIMEN FROM NASOPHARYNGEAL STRUCTURE / Unknown Collection / Unknown 01/25/2020 7:56 AM CDT 01/25/2020 7:56 AM CDT Narrative [facility] - 01/27/2020 2:31 PM CDT This Real Time RT-PCR assay was developed and its performance characteristics determined by [facility]. This test has been authorized by the Food and Drug administration (FDA)under an Emergency Use Authorization (EUA). This test has been validated in accordance with the FDA's guidance document Policy for Diagnostic Testing in Laboratories Certified to perform High Complexity Testing under CLIA prior to Emergency Use Authorization for Coronavirus Disease-2019 during the Public Health Emergency issued on July 15, 2019. FDA independent review of this validation is pending. This test is only authorized for the duration of time the declaration that circumstances exist justifying the authorization of emergency use of in vitro diagnostic tests for detection of SARS-CoV-2 virus and/or diagnosis of COVID-19 infection under section 564(b)(1) of the Act, 21 U.S.C 360bbb-3 (b)(1), unless the authorization is terminated or revoked sooner. Kiley Escamilla ENAMEL FINISHER-CONTROL VALVE TECHNICIAN LAB - MICROBIOLOGY ORDERABLES [facility] [address] [place] [address], [facility] [phone] * EKG 12-LEAD (03/20/2019) Only the most recent of2 resultswithin the time period is included. Volodymyr Salmon MD ECG ORDERABLES * CT ABDOMEN AND PELVIS WITH IV [...] MICROSCOPIC REFLEX CULTURE (03/07/2018 4:17 PM CDT) Only the most recent of4 resultswithin the time period is included. Color UA Straw Straw, Yellow 03/07/2018 5:03 PM CDT [facility] Clarity UA Clear Clear 03/07/2018 5:03 PM CDT [facility] Glucose UA Negative Negative 03/07/2018 5:03 PM CDT [facility] Bilirubin UA Negative Negative 03/07/2018 5:03 PM CDT [facility] Ketone UA Negative Negative 03/07/2018 5:03 PM CDT [facility] Specific Wilson UA 1.010 1.005 - 1.030 03/07/2018 5:03 PM CDT [facility] Blood UA Negative Negative 03/07/2018 5:03 PM CDT [facility] pH UA 5.0 5.0 - 8.0 pH 03/07/2018 5:03 PM CDT [facility] Protein UA Negative Negative 03/07/2018 5:03 PM CDT [facility] Urobilinogen UA Negative Negative mg/dL 03/07/2018 5:03 PM CDT [facility] Nitrite UA Negative Negative 03/07/2018 5:03 PM CDT [facility] Leukocyte UA Negative Negative 03/07/2018 5:03 PM CDT [facility] Urine Microscopy Urine microscopy not indicated 03/07/2018 5:03 PM CDT [facility] Reflex Status Culture not indicated 03/07/2018 5:03 PM CDT [facility] Urine URINE SPECIMEN OBTAINED BY CLEAN CATCH PROCEDURE / Unknown Collection / Unknown 03/07/2018 4:17 PM CDT 03/07/2018 4:22 PM CDT Narrative [facility] - 03/07/2018 5:03 PM CDT Sheela Chung DO LAB - URINALYSIS OR DERABLES Performing Organization Address City/State/[facility] Co de Phone Number [facility] [address] * (ABNORMAL) PT PTT PANEL (03/07/2018 4:16 PM CDT) PT 10.0 9.6 - 11.5 sec 03/07/2018 4:51 PM CDT [facility] INR 0.99(L) 2 - 3 03/07/2018 4:51 PM CDT [facility] PTT 23.6(L) 24.0 - 32.0 sec 03/07/2018 4:51 PM CDT [facility] Blood BLOOD SPECIMEN / Unknown Venipuncture / Unknown 03/07/2018 4:16 PM CDT 03/07/2018 4:22 PM CDT Narrative [facility] - 03/07/2018 4:51 PM CDT Recommended therapeutic INR ranges for Oral Anticoagulant Therapy: ??2.0-3.0 For prevention of Thrombosis or Embolism and treatment of Venous Thrombosis. 2.5- 3.5 for prevention of Recurrent Embolism or treatment of patients with Mechanical Prosthetic Heart Valves. Sheela Chung DO LAB - COAGULATION O RDERABLES [facility] [address] * (ABNORMAL) DIFFERENTIAL MANUAL (03/07/2018 4:16 [...] - HEMATOLOGY OR DERABLES Performing Organization Address [facility]/ZIP Co de Phone Number [facility] [address] * HCG URINE QUALITATIVE - POCT (IP) BEAKER - ILL (03/07/2018 4:15 PM CDT) Only the most recent of2 resultswithin the time period is included. HCG Qual Urine Negative Negative [facility] Lot # [id number] [facility] Expiration Date [facility] QC Verified Yes Yes [facility] P[facility] T TESTING Urine URINE / Unknown 03/07/2018 4 :15 PM CDT Sheela Chung DO LAB - POINT OF CARE ORDERABLES [facility] [address] * LAB RESULTS ORDER (06/06/2015) Only the most recent of6 resultswithin the time period is included. 06/06/2015 Narrative 06/06/2015 Ordered by an unspecified provider. Scanned Document LAB - THERAPEUTIC DR YANCY MONITORING ORDERABLES * PATHOLOGY/CYTOLOGY REPORT ORDER (12/28/2014) 12/28/2014 Narrative 12/28/2014 Ordered by an unspecified provider. Scanned Document LAB - PATHOLOGY/CYTO LOGY ORDERABLES * GROSS + MICRO EXAM (ILL) (12/25/2014 11:56 PM CDT) Case Report Surgical Pathology Report ? Case: [id number] ? Authorizing Provider: ??Cata Lopez MD ? Collected: ? 12/25/2014 11:56 PM ? Ordering Location: ? [facility] ? Received: ?12/26/2014 05:39 AM ? Pathologist: ? Amos Diggs MD ? Specimen: ?Placenta ? 12/27/2014 1:44 PM T [facility] Final Diagnosis PLACENTA, [address], VAGINAL DELIVERY: - TRIVASCULAR UMBILICAL CORD WITHOUT FUNISITIS. - MEMBRANES WITHOUT CHORIOAMNIONITIS OR MECONIUM CONTACT. - PLACENTAL DISC WITHOUT GROSS ABNORMALITY. - MILDLY THIRD TRIMESTER CHORIONIC VILLI WITH CONGESTION. - FIBRINOID CHANGE OF MATERNAL VESSELS OF DECIDUAL BASALIS. DH/jzr 12/27/2014 1:[address] [facility] Clinical History Collection Date: 12/25/2014 Maternal History: 35 5/7 weeks with severe pre-eclampsia. Unknown GBBS status. Weeks Gestation: 35 5/7 weeks. G1, T0, P1, A0, L1 Operative Procedure: Spontaneous vaginal delivery. Specimen Source: Placenta and umbilical cord. Physician: Cata Lopez MD 12/27/2014 1:44 PM T [facility] Gross Description Received in formalin labeled Domingo Werner and placenta and cord , is a [...] cassettes A3-A5. BHAVANA/tory 12/27/2014 1:44 PM CDT [facility] Microscopic Description Microscopic examination is performed and substantiates the above diagnosis. 12/27/2014 1:44 PM CDT [facility] Testing Performed By Performed by [facility] [place] [address] 12/27/2014 1:44 PM CDT [facility] Pathology/Cytolo gy ENTIRE PLACENTA / Unknown 12/25/2014 11:56 PM CDT 12/26/2014 5:39 AM CDT August John DUKE LAB - PATHOLOGY/CYTO LOGY ORDERABLES Performing Organization Address City/State/[facility] Co de Phone Number [facility] [address] * NEURAXIAL BLOCK (12/25/2014 5:00 PM CDT) [...] Fahad Coles MD GENERAL ANESTHE INA ORDERABLES * RPR (12/25/2014 9:35 AM CDT) Pathologist [facility] RPR Nonreactive Nonreactive 12/26/2014 1:29 PM CDT [facility] Blood BLOOD SPECIMEN / Unknown Lab Venipuncture / Unknown 12/25/2014 9:35 AM CDT 12/25/2014 9:44 AM CDT Amos Leong MD LAB - CHEMISTRY CASSY SMITH [facility] Organization Address [facility]/State/[facility] Co de Phone Number [facility] [address] * TYPE + SCREEN PANEL (12/25/2014 9:35 AM CDT) ABO A 12/25/2014 10:31 AM CDT [facility] Rh Type Positive 12/25/2014 10:31 AM CDT [facility] Comment:History check perfor med. Retype required. Antibody Screen Negative 12/25/2014 10:31 AM CDT [facility] Miscellaneous samples (specimen) BLOOD SPECIMEN / Unknown Lab Venipuncture / Unknown 12/25/2014 9:35 AM CDT 12/25/2014 9:44 AM CDT Amos Leong MD LAB - BLOOD BANK ORD MAGDALENO [facility] [address] * BLOOD TYPE VERIFICATION (12/25/2014 4:50 AM CDT) ABO A 12/25/2014 11:26 AM CDT [facility] Rh Type Positive 12/25/2014 11:26 AM CDT [facility] Miscellaneous samples (specimen) BLOOD SPECIMEN / Unknown 12/25/2014 4:50 AM CDT 12/25/2014 10:23 AM CDT Kassy Carr MD LAB - BLOOD BANK ORD MAGDALENO Performing Organization Address [facility] Co de Phone Number [facility] [address] * URIC ACID BLOOD (12/25/2014 4:23 AM CDT) Only the most recent of2 resultswithin the time period is included. Uric Acid 5.7 2.6 - 6.0 mg/dL 12/25/2014 5:23 AM CDT [facility] Blood BLOOD SPECIMEN / Unknown Lab Venipuncture / Unknown 12/25/2014 4:23 AM CDT 12/25/2014 5:02 AM CDT Amos Leong MD LAB - CHEMISTRY CASSY SMITH Performing Organization Address City/[facility]/ZIP Co de Phone Number [facility] [address] * (ABNORMAL) PTT (12/24/2014 11:49 AM CDT) PTT 22.2(L) 24.0 - 32.0 sec 12/24/2014 1:13 PM CDT [facility] Blood BLOOD SPECIMEN / Unknown Lab Venipuncture / Unknown 12/24/2014 11:49 AM CDT 12/24/2014 11:54 AM CDT [facility]AB[facility] Performing Organization Address [facility] Co de Phone Number [facility] [address] * (ABNORMAL) PT-INR (12/24/2014 11:49 AM CDT) PT <8.7(L) 9.6 - 11.5 sec 12/24/2014 1:13 PM CDT [facility] INR <0.86(L) 2 - 3 12/24/2014 1:13 PM CDT [facility] Blood BLOOD SPECIMEN / Unknown Lab Venipuncture / Unknown 12/24/2014 11:49 AM CDT 12/24/2014 11:54 AM CDT Narrative [facility] - 12/24/2014 1:13 PM CDT Recommended therapeutic INR ranges for Oral Anticoagulant Therapy: ??2.0-3.0 For prevention of Thrombosis or Embolism and treatment of Venous Thrombosis. 2.5- 3.5 for prevention of Recurrent Embolism or treatment of patients with Mechanical Prosthetic Heart Valves. Sena Moreno [facility] [facility] - COAGULATION ORDERABLES Performing Organization Address [facility] de Phone Number [facility] [address] * [place] [id number] (12/24/2014 11:15 AM CDT) Anatomical Region Laterality [...] pelvis. Results were called to Dr. Sena Moreno. Procedure Note Lenny Mitchell MD - 12/24/2014 [...] pelvis. Results were called to Dr. Sena Moreno. Sena Moreno ENAMEL FINISHER-CNM US ORDERABLES * US OB BPP W/O NST [id number] (12/24/2014 10:50 AM CDT) Anatomical Region Laterality [...] moving well. Findings were called to Sena Moreno. NÉSTOR calculation 9.8 with the 50th percentile [...] moving well. Findings were called to Sena Moreno. NÉSTOR calculation 9.8 with the 50th percentile being 14 cm and the 5th percentile being 7.9 cm. Single viable intrauterine , heart rate 147 beats per minute, vertex position. Placental location is fundal maternal right. Senaleslie Moreno ENAMEL FINISHER-CNM US ORDERABLES * PROTEIN CREATININE RATIO URINE RANDOM PNL (12/24/2014 10:05 AM CDT) Protein Urine <6.8 mg/dL 12/24/2014 10:46 AM CDT [facility] Creatinine Urine 12.6 mg/dL 12/24/2014 10:46 AM CDT [facility] Protein/Creatin ine Ratio Urine <200.00 12/24/2014 10:46 AM CDT [facility] Comment:Not able to calculat e; protein <6.8 Urine URINE SPECIMEN OBTAINED BY CLEAN CATCH PROCEDURE / Unknown 12/24/2014 10:05 AM CDT 12/24/2014 10:20 AM CDT Sena Donovanbrigitte RAPHAEL-CN LAB - URINE CHEMIS TRY ORDERABLES [facility] [address] * [place] ELECTROCARDIOGRAM, COMPLETE (09/26/2014) Volodymyr Salmon MD [place] - PROFESSIONAL SE RVICES * ECHOCARDIOGRAM 2D WITH DOPPLER (09/14/2014 12:00 AM CDT) 09/14/2014 Narrative [facility] - 09/15/2014 2:04 PM CDT [facility] 1 [place] [address] Transthoracic Echocardiogram 2D, M-mode, Doppler, and Color Doppler Patient: DOMINGO WERNER MR #: [id number] : 1990 Age: 24 years Gender: Female Study date: 14-Sep-2014 Status: Outpatient Room: - HR: 77 bpm Height: 65 in 65 in Weight: 146.7 lb 147 lb BSA: 1.74 m?? 1.74 m?? BP: 142/ 75 Referring Physician: ??Unlisted Ordering Physician: ??Ry Murray MD Hris Specialist: ??Cortez Campbell MD, [facility], [facility], STARLA, [facility] Telesales Advisor: ??Julio Person [facility] Hris Specialist: ??Sony [facility] Summary: - ??Clinical question: History of aortic coarctation repair - ??Left ventricle: Size was normal. Systolic function was normal. Ejection fraction was estimated to be 60 %. There were no regional wall motion abnormalities. - ??Aortic valve: The valve was trileaflet. Leaflets exhibited normal cuspal separation. There was trace aortic valve regurgitation. - ??Aorta, systemic arteries: The ascending aorta was normal in size. The aortic arch was normal in size. There was no evidence for dissection. There was no evidence for aneurysm. There was residual coarctation following surgical repair. The gradient was 29 mmHg. Clinical question: History of aortic coarctation repair Procedure: The procedure was performed at the bedside. This was a routine study. Blood Pressure: Right Arm: 142/75 Right Le/118 Left Arm: 111/72 Left Le/121 Left ventricle: Size was normal. Systolic function was normal. Ejection fraction was estimated to be 60 %. There were no regional wall motion abnormalities. Wall thickness was normal. Doppler: Left ventricular diastolic function parameters were normal. Aortic valve: The valve was trileaflet. Leaflets exhibited normal cuspal separation. Doppler: Transaortic velocity was within the normal range. There was no stenosis. There was trace aortic valve regurgitation. Aorta: The root exhibited normal size. The ascending aorta was normal in size. The aortic arch was normal in size. There was no evidence for dissection. There was no evidence for aneurysm. There was residual coarctation following surgical repair. The gradient was 29 mmHg. Mitral valve: Valve structure was normal. There was normal leaflet separation. Doppler: The transmitral velocity was within the normal range. There was no evidence for stenosis. There was trace regurgitation. Left atrium: Size was normal. Pulmonary veins: The pulmonary veins were normal sized. Doppler: Doppler flow pattern was normal in the pulmonary vein(s). Right ventricle: The size was normal. Systolic function was normal. Wall thickness was normal. Doppler: Systolic pressure was within the normal range. Estimated peak pressure was 25 mmHg. Pulmonic valve: Leaflets exhibited normal cuspal separation. Doppler: The transpulmonic velocity was within the normal range. There was no significant regurgitation. Pulmonary artery: The size was normal. Doppler: Systolic pressure was within the normal range. Tricuspid valve: The valve structure was normal. There was normal leaflet separation. Doppler: The transtricuspid velocity was within the normal range. There was no evidence for tricuspid stenosis. There was no regurgitation. Right atrium: Size was normal. Systemic veins: IVC: The inferior vena cava was normal in size and course. The inferior vena cava was normal in size. Respirophasic changes were normal. Pericardium: There was no pericardial effusion. The pericardium was normal in appearance. System measurement tables 2D mode AoR Diam: 3.4 cm Asc Aorta Diam: 3.2 cm LA Dimension (2D): 3.4 cm EF (2D-Cubed): 71.5 % FS (2D): 34.2 % IVS/LVPW (2D): 0.97 IVSd (2D): 0.71 cm LV EF Biplane: 63 % LVIDd (2D): 4.97 cm LVIDs (2D): 3.27 cm LVOT Area (2D): 3.14 cm2 LVPWd (2D): 0.74 cm Tissue Doppler Imaging Lateral E': 20.8 cm/s Medial E': 12.8 cm/s Unspecified Scan Mode AV Peak Gradient: 9 mm[Hg] AV Peak Constantine: 151 cm/s AV Peak Constantine: 148 cm/s CJ Peak Constantine: 2.62 cm2 IVRT: 67 ms LVOT Diam: 2 cm LVOT Peak Gradient: 6 mm[Hg] LVOT Peak Constantine: 126 cm/s Lateral E/E': 4.5 Medial E/E': 7.4 MV Decel Time: 264 ms MV E/A: 2 MV Peak A Constantine: 47.9 cm/s MV Peak E Constantine: 94.3 cm/s Regurgitant Peak Constantine: 224 cm/s TR Peak Gradient: 22 mm[Hg] TR Peak Constantine: 233 cm/s All images and data generated for this procedure were personally reviewed by me. Prepared and Electronically Authenticated Cortez Campbell MD, EVARISTO, STARLA SUAREZ FASNC 15-Sep-2014 14:12:15 Procedure Note Unknown, Provider - 09/15/2014 [facility] 1 [place] [address] Transthoracic Echocardiogram 2D, M-mode, Doppler, and Color Doppler Patient: DOMINGO WERNER MR #: [id number] : 1990 Age: 24 years Gender: Female Study date: 14-Sep-2014 Status: Outpatient Room: - HR: 77 bpm Height: 65 in 65 in Weight: 146.7 lb 147 lb BSA: 1.74 m?? 1.74 m?? BP: 142/ 75 Referring Physician: Unlisted Ordering Physician: Ry Murray MD Hris Specialist: Cortez Campbell MD, EVARISTO, STARLA SUAREZ FASNC Telesales Advisor: Julio Person RDCS Hris Specialist: [facility] Summary: - Clinical question: History of aortic coarctation repair - Left ventricle: Size was normal. Systolic function was normal. Ejection fraction was estimated to be 60 %. There were no regional wall motion abnormalities. - Aortic valve: The valve was trileaflet. Leaflets exhibited normalcuspal separation. There was trace aortic valve regurgitation. - Aorta, systemic arteries: The ascending aorta was normal in size. The aortic arch was normal in size. There was no evidence for dissection.There was no evidence for aneurysm. There was residual coarctation following surgical repair. The gradient was 29 mmHg. Clinical question: History of aortic coarctation repair Procedure: The procedure was performed at the bedside. This was a routine study. Blood Pressure: Right Arm: 142/75 Right Le/118 Left Arm: 111/72 Left Le/121 Left ventricle: Size was normal. Systolic function was normal. Ejection fraction was estimated to be 60 %. There were no regional wall motion abnormalities. Wall thickness was normal. Doppler: Left ventriculardiastolic function parameters were normal. Aortic valve: The valve was trileaflet. Leaflets exhibited normal cuspal separation. Doppler: Transaortic velocity was within the normal range.There was no stenosis. There was trace aortic valve regurgitation. Aorta: The root exhibited normal size. The ascending aorta was normal insize. The aortic arch was normal in size. There was no evidence for dissection. There was no evidence for aneurysm. There was residual coarctationfollowing surgical repair. The gradient was 29 mmHg. Mitral valve: Valve structure was normal. There was normal leafletseparation. Doppler: The transmitral velocity was within the normal range. There wasno evidence for stenosis. There was trace regurgitation. Left atrium: Size was normal. Pulmonary veins: The pulmonary veins were normal sized. Doppler: Dopplerflow pattern was normal in the pulmonary vein(s). Right ventricle: The size was normal. Systolic function was normal. Wall thickness was normal. Doppler: Systolic pressure was within the normalrange. Estimated peak pressure was 25 mmHg. Pulmonic valve: Leaflets exhibited normal cuspal separation. Doppler: The transpulmonic velocity was within the normal range. There was nosignificant regurgitation. Pulmonary artery: The size was normal. Doppler: Systolic pressure waswithin the normal range. Tricuspid valve: The valve structure was normal. There was normal leaflet separation. Doppler: The transtricuspid velocity was within the normalrange. There was no evidence for tricuspid stenosis. There was noregurgitation. Right atrium: Size was normal. Systemic veins: IVC: The inferior vena cava was normal in size and course.The inferior vena cava was normal in size. Respirophasic changes werenormal. Pericardium: There was no pericardial effusion. The pericardium was normalin appearance. System measurement tables 2D mode AoR Diam: 3.4 cm Asc Aorta Diam: 3.2 cm LA Dimension (2D): 3.4 cm EF (2D-Cubed): 71.5 % FS (2D): 34.2 % IVS/LVPW (2D): 0.97 IVSd (2D): 0.71 cm LV EF Biplane: 63 % LVIDd (2D): 4.97 cm LVIDs (2D): 3.27 cm LVOT Area (2D): 3.14 cm2 LVPWd (2D): 0.74 cm Tissue Doppler Imaging Lateral E': 20.8 cm/s Medial E': 12.8 cm/s Unspecified Scan Mode AV Peak Gradient: 9 mm[Hg] AV Peak Constantine: 151 cm/s AV Peak Constantine: 148 cm/s CJ Peak Constantine: 2.62 cm2 IVRT: 67 ms LVOT Diam: 2 cm LVOT Peak Gradient: 6 mm[Hg] LVOT Peak Constantine: 126 cm/s Lateral E/E': 4.5 Medial E/E': 7.4 MV Decel Time: 264 ms MV E/A: 2 MV Peak A Constantine: 47.9 cm/s MV Peak E Constantine: 94.3 cm/s Regurgitant Peak Constantine: 224 cm/s TR Peak Gradient: 22 mm[Hg] TR Peak Constantine: 233 cm/s All images and data generated for this procedure were personally reviewedby me. Prepared and Electronically Authenticated Cortez Campbell MD, FACC, [facility], FASE, FASRI 15-Sep-2014 14:12:15 Sena Moreno ENAMEL FINISHER-CNM ECHO ORDERABLES Performing Organization Address City/[facility]/ZIP Co de Phone Number [facility] * KETONES QUALITATIVE URINE AUTO (06/15/2014 4:16 AM BANQUET SERVER) Ketone UA Negative Negative 06/15/2014 4:31 AM BANQUET SERVER [facility] Urine URINE / Unknown 06/15/2014 4 :16 AM BANQUET SERVER 06/15/2014 4:21 AM BANQUET SERVER Faustino Sam DO LAB - URINALYSIS ORD ERABLES [facility] [address] * (ABNORMAL) URINALYSIS MICROSCOPIC ONLY W/REFLEX CULTURE (06/15/2014 2:06 AM BANQUET SERVER) Only the most recent of2 resultswithin the time period is included. RBC UA 2-5(A) None , 0-2 # /hpf 06/15/2014 2:32 AM BANQUET SERVER [facility] WBC UA 0-2 None , 0-2, 2-5 # /hpf 06/15/2014 2:32 AM BANQUET SERVER [facility] Bacteria UA 3+(A) None Seen, Trace 06/15/2014 2:32 AM BANQUET SERVER [facility] Epithelial Cell UA 2-5 0-2, 2-5, 5-10 06/15/2014 2:32 AM BANQUET SERVER [facility] Urine URINE SPECIMEN OBTAINED BY CLEAN CATCH PROCEDURE / Unknown 06/15/2014 2:06 AM BANQUET SERVER 06/15/2014 2:16 AM BANQUET SERVER Narrative [facility] - 06/15/2014 2:32 AM BANQUET SERVER Bacteria, epithelial cells, mucus, and crystals are reported as quantity/HPF. Kiley Escamilla ENAMEL [facility] - URINALYSIS OR DERABLES [facility] [address] * (ABNORMAL) CULTURE URINE (06/15/2014 2:06 AM BANQUET SERVER) Culture >100,000 CFU/mL Escherichia coli(A) GEORGIE 06/17/2014 8:42 AM BANQUET SERVER [facility] Urine URINE SPECIMEN OBTAINED BY CLEAN CATCH PROCEDURE / Unknown 06/15/2014 2:06 AM BANQUET SERVER 06/15/2014 2:16 AM BANQUET SERVER Narrative Organism Antibiotic Method Susceptibility Escherichia coli Ampicillin GEORGIE >16 ug/mL: Resistant Escherichia coli Cefazolin GEORGIE >16 ug/mL: Resistant Escherichia coli Cefoxitin GEORGIE >16 ug/mL: Resistant Escherichia coli Ceftriaxone GEORGIE <=1 ug/mL: Susceptible Escherichia coli Cefuroxime GEORGIE <=4 ug/mL: Susceptible Escherichia coli Ciprofloxacin GEORGIE <=1 ug/mL: Susceptible Escherichia coli Gentamicin GEORGIE <=4 ug/mL: Susceptible Escherichia coli Levofloxacin GEORGIE <=2 ug/mL: Susceptible Escherichia coli Nitrofurantoin GEORGIE <=32 ug/mL: Susceptible Escherichia coli Trimethoprim-sulfamethoxazole GEORGIE <=2 ug/mL: Susceptible Kiley Escamilla ENAMEL [facility] - MICROBIOLOGY ORDERABLES [facility] [address] * INFLUENZA A+B ANTIGEN RAPID (06/15/2014 12:39 AM BANQUET SERVER) Influenza A Antigen Negative Negative 06/15/2014 1:13 AM BANQUET SERVER [facility] Influenza B Antigen Negative Negative 06/15/2014 1:13 AM BANQUET SERVER [facility] Microbiology NASOPHARYNGEAL SWAB / Unknown 06/15/2014 12:39 AM BANQUET SERVER 06/15/2014 12:44 AM BANQUET SERVER Faustino Sam DO LAB - MICROBIOLOGY O RDERABLES [facility] [address] Care Teams Health Administration Teacher Relationship Specialty Start Date End Date Deb Montenegro MD [address] [place] [phone] PCP - General Family Medicine 05/13/22
--- OUTSIDE RECORDS SUMMARY | 2024-05-04 16:50 | XMS_ITS | Encounter Summary ---
Author Organization [facility] Address [address] [facility] [place] [address] Care Team Providers Care Talent Associate Name Role Phone Deb Montenegro MD Primary Care Provider + [phone] Reason for Visit * Reason Comments Refill Request Encounter Details Date Type Department Care Team (Late st Contact Info) Description 02/23/2023 Refill [facility] - Family Medicine [address] [place] [address] Deb Montenegro MD [address] [place] [phone] Refill Request Social History Tobacco Use Types [...] Telephone Encounter - Mouna Jay RN - 02/24/2023 9:40 AM CDT MEDICATION FILLED PER PROTOCOL Last Office Visit with PCP: 07/15/2022 Last Video Visit with PCP: Visit date not found Next Appointment with PCP: Visit date not found Follow-up: Return if symptoms worsen or fail to improve Disposition of prescription: e-prescribed to preferred pharmacy documented in this encounter Plan of Treatment Upcoming Encounters Date Type Department Care Team (Late st Contact Info) Description 05/12/2024 9:30 AM IMMIGRATION LAWYER Appointment [facility] Breast [place] [address] [place] [address] Flaco Rosales MD [address] [place] [phone] 05/24/2024 7:00 AM IMMIGRATION LAWYER Procedure visit [facility] - MANAGER MASS [address] [place] [phone] 06/07/2024 9:45 AM IMMIGRATION LAWYER Office Visit [facility] - MANAGER MASS [address] [place] [address] Flaco Rosales MD [address] [place] [phone] 07/11/2024 12:00 PM IMMIGRATION LAWYER Video Visit [facility] - Family Medicine [address] [facility] [address] Deb Montenegro MD [address] [facility] [place] [phone] documented as of this encounter Visit Diagnoses Diagnosis CASSIDY (generalized anxiety disorder) Generalized anxiety disorder documented in this encounter Care Teams Talent Associate Relationship Specialty Start Date End Date Deb Montenegro MD [address] [place] [phone] PCP - General Family Medicine 05/13/22 documented as of this encounter
--- OUTSIDE RECORDS SUMMARY | 2024-05-04 16:50 | XMS_ITS | Encounter Summary ---
Author Organization [facility] Address [address] [facility] [place] [address] Care Team Providers Care Home Office Representative Name Role Phone Baylee Evelyn Mylene PACKING MACHINE CAN FEEDER-COMPETITIVE INTELLIGENCE ANALYST Primary Care Provider [phone] Encounter Details Date Type Department Care Team (Latest Contact Info) Description 01/25/2020 Travel Social History Tobacco Use Types Packs/Day [...] Exposure Response Date Recorded In the last month, have you been in contact with someone who was confirmed or suspected to have Coronavirus / COVID-19? No / Unsure 01/25/2020 7:51 AM CDT documented as of this encounter Functional Status [...] st Contact Info) Description 05/12/2024 9:30 AM STITCH WHEELER Appointment [facility] Breast Care [address] [place] [address] Flaco Rosales MD [address] [place] [address] [place] [phone] 05/24/2024 7:00 AM STITCH WHEELER Procedure visit [facility] - APPLICATIONS SUPPORT ENGINEER [address] [place], [place] [address] [phone] 06/07/2024 9:45 AM STITCH WHEELER Office Visit [facility] - APPLICATIONS SUPPORT ENGINEER [address] [place] [address] Flaco Rosales MD [address] [place] [address] [place] [phone] 07/11/2024 12:00 PM STITCH WHEELER Video Visit [facility] - Family Medicine [address] [facility] [address] [place] [place] [address] Deb Montenegro MD [address] [place] [phone] documented as of this encounter Visit Diagnoses Not on filedocumented in this encounter Additional Health Concerns Infection Onset Date Last Indicated Resolved Time COVID-19 Under Investigation 01/25/2020 01/25/2020 01/27/2020 2:31 PM CDT documented as of this encounter Care Teams Home Office Representative Relationship Specialty Start Date End Date Evelyn Beach, PACKING MACHINE CAN FEEDER-COMPETITIVE INTELLIGENCE ANALYST [address] [place] [address] PCP - General Nurse Practitioner 03/07/18 05/12/22 documented as of this encounter
--- OUTSIDE RECORDS SUMMARY | 2024-05-04 16:50 | XMS_ITS | Encounter Summary ---
Author Organization [facility] Health Address [address] [facility] [place] [address] Care Team Providers Care M48 M60 Armor Crewman Name Role Phone Deb Montenegro MD Primary Care Provider [phone] Encounter Details Date Type Department Care Team (Latest Contact Info) Description 05/15/2022 Travel Social History Tobacco Use Types Packs/Day [...] Coronavirus/COVID-19? No / Unsure 05/15/2022 11:13 AM JOB RECRUITER documented as of this encounter Functional Status [...] st Contact Info) Description 05/12/2024 9:30 AM JOB RECRUITER Appointment [facility] Breast [facility] [address] [place] [address] Flaco Rosales MD [address] [place] [address] [place] [phone] 05/24/2024 7:00 AM JOB RECRUITER Procedure visit [facility] - SPRING FORMER MACHINE [address] [place] [phone] 06/07/2024 9:45 AM JOB RECRUITER Office Visit [facility] - SPRING FORMER MACHINE [address] [place] [address] Flaco Rosales MD [address] [place] [phone] 07/11/2024 12:00 PM JOB RECRUITER Video Visit [facility] - Family Medicine [address] [facility] [place] [address] Deb Montenegro MD [address] [place] [phone] documented as of this encounter Visit Diagnoses Not on filedocumented in this encounter Care Teams M48 M60 Armor Crewman Relationship Specialty Start Date End Date Deb Montenegro MD [address] [place] [phone] PCP - General Family Medicine 05/13/22 documented as of this encounter
--- OUTSIDE RECORDS SUMMARY | 2024-05-04 16:50 | XMS_ITS | Encounter Summary ---
Author Organization [facility] Health Address [address] [facility] [place] [address] Care Team Providers Care Manager Reporting Name Role Phone Deb Montenegro MD Primary Care Provider + [phone] Reason for Visit * Reason Comments Refill Request Encounter Details Date Type Department Care Team (Late st Contact Info) Description 06/16/2023 Refill [facility] - PERFORMANCE REPORTER [address] [place] [phone] Flaco Rosales MD [address] [place] [phone] Refill Request Social History Tobacco Use Types [...] encounter Miscellaneous Notes * Telephone Encounter - Vicky Butler MA - 06/16/2023 10:53 AM CST Last OV: Last RF: 05/21/2023, 1 packet. Pending appt: 06/22/2023 .. Requested Prescriptions Pending Prescriptions Disp Refills ??? drospirenone-ethinyl estradiol (Hanane) 3-0.02 MG tablet [Pharmacy Med Name: DROSPIRENONE/ETHINYL ESTRADIOL 3-0.02MG TABLET] 28 tablet 0 Sig: TAKE ONE TABLET BY MOUTH DAILY Per patient's refill as above, refills can be provided at her appt as above with Dr. Rosales. RVATIONS AGENT documented in this encounter Plan of Treatment Upcoming Encounters Date Type Department Care Team (Late st Contact Info) Description 05/12/2024 9:30 AM RESERVATIONS AGENT Appointment [facility] Breast [address] [place] [address] Flaco Rosales MD [address] [place] [phone] 05/24/2024 7:00 AM RESERVATIONS AGENT Procedure visit [facility] - PERFORMANCE REPORTER [address] [place] [phone] 06/07/2024 9:45 AM RESERVATIONS AGENT Office Visit [facility] - PERFORMANCE REPORTER [address] [place] [address] Flaco Rosales MD [address] [place] [phone] 07/11/2024 12:00 PM RESERVATIONS AGENT Video Visit [facility] - Family Medicine [address] [facility] [place] [address] Deb Montenegro MD [address] [place] [phone] documented as of this encounter Visit Diagnoses Not on filedocumented in this encounter Care Teams Manager Reporting Relationship Specialty Start Date End Date Deb Montenegro MD [address] [place] [phone] PCP - General Family Medicine 05/13/22 documented as of this encounter
--- OUTSIDE RECORDS SUMMARY | 2024-05-04 16:50 | XMS_ITS | Encounter Summary ---
Author Organization [facility] Address [address] [place] [address] Care Team Providers Care Pin Setter Name Role Phone Deb Montenegro MD Primary Care Provider + [phone] Reason for Referral * Radiology Services (Routine) - Authorized Specialty Diagnoses / Procedures Referred By Contac t Referred To Contact Ultrasound Diagnoses Mass of lower outer quadrant of left breast Procedures US BREAST LEFT LTD( most commonly ordered , not the whole breast) Flaco Rosales MD [address] [place] [phone] Referral ID Status Reason Start Date Expiration Date V isits Requested Visits Authorized [id number] Authorized 04/05/2024 04/05/2025 1 1 TAL DESIGNER * Radiology Services (Routine) - Authorized Specialty Diagnoses / Procedures Referred By Contac t Referred To Contact Mammography Diagnoses Mass of lower outer quadrant of left breast Procedures Mammo Bilat Diagnostic W lFaco Almodovar MD [address] [place] [phone] Referral ID Status Reason Start Date Expiration Date V isits Requested Visits Authorized [id number] Authorized 04/05/2024 04/05/2025 1 1 TAL DESIGNER Reason for Visit * Reason Comments Well Women Exam Encounter Details Date Type Department Care Team (Latest Contact Info) Description 04/05/2024 3:15 PM DIGITAL DESIGNER Office Visit [facility] - CABLE CUTTER AND SWAGER [address] [facility] [address] [phone] Flaco Rosales MD [address] [facility] [place] [phone] Well woman exam with routine gynecological exam (Primary Dx); Mass of lower outer quadrant of left breast Social History Tobacco Use Types Packs/Day Years [...] Comments Blood Pressure 120/76 04/05/2024 2:59 PM DIGITAL DESIGNER Pulse - - Temperature - - Respiratory Rate - - Oxygen Saturation - - Inhaled Oxygen Concentration - - Weight 53.1 kg (117 lb) 04/05/2024 2:59 PM DIGITAL DESIGNER Height 167.6 cm (5' 6 ) 04/05/2024 2:59 PM DIGITAL DESIGNER Body Mass Index 18.88 04/05/2024 2:59 PM DIGITAL DESIGNER documented in this encounter Functional Status Functional [...] Progress Notes * Flaco Rosales MD - 04/05/2024 3:18 PM CST Chief Complaint Patient presents with Well Women Exam Karla Castaneda is a 34 year old with: Problem Well Woman Exam With Routine Gynecological Exam Complaints: left breast lesion Contraception: OCP's, wants permanent sterilization Pap Results No recent doc pap Mammogram Results No previous mammogram ROS: Negative for fever, unintentional weight gain/weight loss, TORRES, blurred vision, CP, SOB, dyspnea, cough, nausea, vomiting, diarrhea, dysuria, urinary frequency or urgency, joint swelling or pain Past Medical History: Diagnosis Date H/O repair of patent ductus arteriosus at age 5 Kidney stones last time she passed one was one year ago S/P repair of coarctation of aorta at age 5 Scoliosis Past Surgical History: Procedure Laterality Date OTHER SURGERY 1993 open heart surgery to repair PDA and coarctation of aorta Social History Socioeconomic History Marital status: Spouse name: Not on file Number of children: Not on file Years of education: Not on file Highest education level: Not on file Occupational History Not on file Tobacco Use Smoking status: Every Day Current packs/day: 0.25 Average packs/day: 0.3 packs/day for 6.0 years (1.5 ttl pk-yrs) Types: Cigarettes Smokeless tobacco: Never Tobacco comments: 3 cigarettes daily Vaping Use Vaping status: Never Used Substance and Sexual Activity Alcohol use: No Drug use: No Sexual activity: Not on file Other Topics Concern Special Diet Not Asked Social History Narrative Not on file Social Determinants of Health Financial Resource Strain: Not on file Food Insecurity: Not on file Transportation Needs: Not on file Stress: Not on file Housing Stability: Not on file Family History Problem Relation Name Age of Onset Diabetes; unknown type Father Other - Cardiac Sister Heart Failure Maternal Grandmother Diabetes Maternal Grandmother Diabetes - Type 2 Maternal Grandmother Heart Failure Maternal Grandfather Diabetes; unknown type Paternal Grandmother No Known Allergies BP 120/76 Ht 1.676 m (5' 6 ) Wt 53.1 kg (117 lb) Cons: well-appearing, NAD Psych: alert and oriented Cards: regular rate Pulm: non-labored respiration Breast: symmetric, no skin abnormalities, 2-3 mm firm mobile mass noted on the left breast at 3 o'clock 2 cm from the nippl, no nipple discharge Abd: soft, ND Pelvic: normal external genitalia, normal vaginal mucosa, cervix normal per visualization, uterus normal to palpation, no adnexal fullness or mass palpated Ext: no edema No results found for this visit on 04/05/24. 34 year old with: Well woman exam with routine gynecological exam Reviewed cervical cancer pathophysiology as well as screening and prevention guidelines Pap collected When discussing contraceptive options, the patient expressed her strong desire to more forward withpermanent sterilization. I reviewed with her the surgical approach, which, in accordance with ACOG recommendations, involves removing both tubes in their entirety as a means to reduce ovarian cancer incidence while also providing permanent sterilization. I extensively reviewed with the patient the p ermanence and irreversibility of this procedure thus preventing any future, natural conception. Questions and concerns were elicited and addressed. The patient verbalized understanding of the procedure and its permanence, and again expressed her intentions to proceed with a bilateral salpingectomy. Will obtain a dx mammo with U/S for breast complaint Will call with OR date/time Flaco Rosales MD 04/05/2024 3:18 PM PATIENT: Karla Castaneda AQUATIC BIOLOGIST: yes PROCEDURE: Bilateral salpingectomy DIAGNOSIS: Encounter for sterilization CPT CODES: 73688 ICD 10 CODES: Z30.2 [facility]PITAL: [facility] INPATIENT OR OUTPATIENT: outpatient ANESTHESIA TYPE: General AMOUNT OF TIME NEEDED: 45 min MEDICAL CLEARANCE: No TAL DESIGNER documented in this encounter Plan of Treatment Upcoming Encounters Date Type Department Care Team (Late st Contact Info) Description 05/12/2024 9:30 AM DIGITAL DESIGNER Appointment [facility] Breast [address] [place] [address] Flaco Rosales MD [address] [place] [phone] 05/24/2024 7:00 AM DIGITAL DESIGNER Procedure visit [facility] - CABLE CUTTER AND SWAGER [address] [place] [phone] 06/07/2024 9:45 AM DIGITAL DESIGNER Office Visit [facility] - CABLE CUTTER AND SWAGER [address] [place] [address] Flaco Rosales MD [address] [place] [phone] 07/11/2024 12:00 PM DIGITAL DESIGNER Video Visit [facility] - Family Medicine [address] [place] [address] Deb Montenegro MD [address] [phone] Scheduled Orders Name Type Priority Associated Diagnoses Orde r Schedule Mammo Bilat Diagnostic [facility] Routine Mass of lower outer quadrant of left breast 1 Occurrences starting 04/05/2024 until 04/05/2025 US BREAST LEFT LTD( most commonly ordered , not the whole breast) Imaging Routine Mass of lower outer quadrant of left breast 1 Occurrences starting 04/05/2024 until 04/05/2025 documented as of this encounter Procedures Procedure Name Priority Date/Time Associated Diagnosis Comments PAP IG LB RFLX HPV APTIMA ASCU Routine 04/05/2024 3:37 PM DIGITAL DESIGNER Well woman exam with routine gynecological exam documented in this encounter Results * PAP IG LB RFLX HPV APTIMA ASCU (04/05/2024 3:37 PM DIGITAL DESIGNER) Diagnosis Comment [facility] ACCOUNT BILL Comment:NEGATIVE FOR [...] UTERINE CERVIX / Unknown 04/05/2024 3:37 PM DIGITAL DESIGNER 04/05/2024 Comment:Cervix Release to parminder morgan Narrative [facility] ACCOUNT BILL - 04/12/2024 11:13 AM DIGITAL DESIGNER Performed at: ??01 - [facility] [address] [place], [place] [id number] Nurse Practitioner: Keena Montejo MD, Phone: ??[phone] Specimen Comment: [id number] Specimen Comment: No. of containers..01 ThinPrep Vial Flaco Rosales MD LAB - PATHOLOGY/CYTO LOGY ORDERABLES [facility] ACCOUNT BILL [address] [place] [address] documented in this encounter Visit Diagnoses Diagnosis Well woman exam with routine gynecological exam- Primary Routine gynecological examination Mass of lower outer quadrant of left breast * Assessment & Plan Note - Flaco Rosales MD - 04/05/2024 3:18 PM CSTAssociated Problem(s): Well woman exam with routine gynecological exam Reviewed cervical cancer pathophysiology as well as screening and prevention guidelines Pap collected When discussing contraceptive options, the patient expressed her strong desire to more forward withpermanent sterilization. I reviewed with her the surgical approach, which, in accordance with ACOG recommendations, involves removing both tubes in their entirety as a means to reduce ovarian cancer incidence while also providing permanent sterilization. I extensively reviewed with the patient the p ermanence and irreversibility of this procedure thus preventing any future, natural conception. Questions and concerns were elicited and addressed. The patient verbalized understanding of the procedure and its permanence, and again expressed her intentions to proceed with a bilateral salpingectomy. Will obtain a dx mammo with U/S for breast complaint TAL DESIGNER documented in this encounter Care Teams Pin Setter Relationship Specialty Start Date End Date Deb Montenegro MD [address] [place] [phone] PCP - General Family Medicine 05/13/22 documented as of this encounter
--- OUTSIDE RECORDS SUMMARY | 2024-05-04 16:50 | XMS_ITS | Encounter Summary ---
Author Organization [facility] Address [address] [place] [address] [address] [address] Care Team Providers Care Brake Assembler Name Role Phone Eliseo Muñiz MD Primary Care Provider + [phone] Reason for Visit * Reason Comments Establish Care Syncope 2 in the last 6 week s- got dizzy, world went dark, vomited Weight loss Anxiety Vomiting Random Encounter Details Date Type Department Care Team (Late st Contact Info) Description 05/13/2022 9:30 AM PROGRAM DIRECTOR/MORNING SHOW HOST Office Visit [facility] Medical [facility] - Family Medicine [address] [place] [address] Eliseo Muñiz MD [address] [place] [phone] Nausea and vomiting, unspecified vomiting type (Primary Dx); CASSIDY (generalized anxiety disorder); Encounter for other general counseling or advice on contraception; Encounter for screening for HIV; Encounter for hepatitis C screening test for low risk patient; Personal history of kidney stones Social History Tobacco Use Types Packs/Day Years [...] Coronavirus/COVID-19? No / Unsure 05/15/2022 11:13 AM PROGRAM DIRECTOR/MORNING SHOW HOST documented as of this encounter Last Filed Vital Signs Vital Sign Reading Time Taken Comments Blood Pressure 136/82 05/13/2022 9:33 AM PROGRAM DIRECTOR/MORNING SHOW HOST Pulse 103 05/13/2022 9:33 AM PROGRAM DIRECTOR/MORNING SHOW HOST Temperature 36.6 ??C (97.8 ??F) 05/13/2022 9:33 AM CS T Respiratory Rate - - Oxygen Saturation 97% 05/13/2022 9:33 AM PROGRAM DIRECTOR/MORNING SHOW HOST Inhaled Oxygen Concentration - - Weight 55.9 kg (123 lb 3.2 oz) 05/13/2022 9:33 A M PROGRAM DIRECTOR/MORNING SHOW HOST Height 165.1 cm (5' 5 ) 05/13/2022 9:33 AM PROGRAM DIRECTOR/MORNING SHOW HOST Body Mass Index 20.5 05/13/2022 9:33 AM PROGRAM DIRECTOR/MORNING SHOW HOST documented in this encounter Functional Status Functional [...] as of this encounter Progress Notes * Eliseo Muñiz MD - 05/13/2022 9:41 AM CST Patient: Karla Castaneda - Encounter Date: 05/13/22 Subjective: Patient ID: Karla Castaneda is a 32 year old female with a chief complaint of Establish Care, Syncope (2 in the last 6 weeks- got dizzy, world went dark, vomited), Weight loss, Anxiety, and Vomiting (Random) - Nausea/ Vomiting: after 2 alcoholic drinks would have excessive vomiting, started about 1.5 yearsago. Stopped drinking due to this. Was previously occasional drinking, not excessive. Continues to have nausea and rare vomiting, as well as intermittent stomach cramps daily in central aspect, no issues with stooling. Lost about 10+ lbs over the last 2 months, no appetite. Stool 2-3 times every morning, soft and formed, no pain or straining, no diarrhea. Not given anything for this in the past. High anxiety which has gotten worse over the last year. Has trialed buspar in the past without benefit, but made her very tired. No SI/HI. CASSIDY score of 14. 2 dizzy spells in the past. Worried because DM runs in the family. Has glucose monitor at home hany case, but no further episodes to cause her to check her blood sugar. No LOC, no chest pain, palpitations, SOB. Stopped OCP 4 days ago, was on it for years. Maybe feels a bit better since stopping but unsure. She is also interested in tubal ligation as she and her are done having children. H/O kidney stones x 3 in the past, no previous stone testing, no current concerning sx. Health Maintenance Due: - Declined flu, covid completed at last visit - pap 2 years ago, normal - Hep C/ HIV screen ordered Patient medical, surgical, family, and social histories reviewed and updated in chart. Allergies and immunizations reviewed and updated in chart. Patient Care Team: Eliseo Muñiz MD as PCP - General (Family Medicine) Review of Systems Constitutional: Positive for appetite change, fatigue and unexpected weight change. Negative for activity change, chills, diaphoresis and fever. Respiratory: Negative for chest tightness and shortness of breath. Cardiovascular: Negative for chest pain, palpitations and leg swelling. Gastrointestinal: Positive for abdominal pain, nausea and vomiting. Negative for abdominal distention, anal bleeding, blood in stool, constipation, diarrhea and rectal pain. Endocrine: Negative for cold intolerance, heat intolerance, polydipsia, polyphagia and polyuria. Genitourinary: Negative for dysuria. Skin: Negative for rash. Neurological: Positive for dizziness and light-headedness. Negative for tremors, syncope and numbness. Psychiatric/Behavioral: Negative for hallucinations and suicidal ideas. Objective: BP 136/82 (BP SITE: RIGHT ARM, BP POSITION: SITTING, BP CUFF SIZE: 11) Pulse 103 Temp 97.8 ??F (36.6 ??C) Ht 1.651 m (5' 5 ) Wt 55.9 kg (123 lb 3.2 oz) SpO2 97% Physical Exam Constitutional: Appearance: Normal appearance. HENT: Head: Normocephalic and atraumatic. Eyes: Conjunctiva/sclera: Conjunctivae normal. Cardiovascular: Rate and Rhythm: Normal rate and regular rhythm. Pulses: Normal pulses. Pulmonary: Effort: Pulmonary effort is normal. Breath sounds: Normal breath sounds. Abdominal: General: Abdomen is flat. Bowel sounds are normal. There is no distension. Palpations: Abdomen is soft. There is no mass. Tenderness: There is no abdominal tenderness. Musculoskeletal: Cervical back: Normal range of motion and neck supple. Skin: General: Skin is warm and dry. Capillary Refill: Capillary refill takes less than 2 seconds. Neurological: Mental Status: She is alert. Psychiatric: Mood and Affect: Mood normal. Behavior: Behavior normal. Assessment and Plan: Karla was seen today for establish care, syncope, weight loss, anxiety and vomiting. Diagnoses and all orders for this visit: Nausea and vomiting, unspecified vomiting type - CBC WITH DIFFERENTIAL - COMPREHENSIVE METABOLIC PANEL - TSH+FREE T4+FREE T3 - LIPASE BLOOD Labwork now, based off findings consider sx treatment and see if appetite returns and able to gain gain again. If not, consider referral to GI. CASSIDY (generalized anxiety disorder) - sertraline (Zoloft) 50 MG tablet; Take 1/2 tab by mouth daily for 1 week, then increase to 1 tab by mouth daily after that. Suspect playing part in current GI sx as well. CASSIDY elevated. Zoloft with return visit in 2 months or sooner PRN. PITO and black box warning discussed. Encounter for other general counseling or advice on contraception Discussed options for contraception including tubal ligation which she is interested in. May be good candidate, discussed rate of regret. Will schedule appt with lvn, Dr Rosales. Encounter for screening for HIV - HIV-1 HIV-2 ANTIBODY + HIV P24 AG PANEL Encounter for hepatitis C screening test for low risk patient - HEPATITIS C ANTIBODY Personal history of kidney stones Monitor for return of sx, aware to call for acute visit if does occur and recommend get hat to catch for stone testing in the future. CASSIDY-7 ANXIETY SCALE Patient Health Questionnaire 05/13/2022 Nervous? 3 Control worrying? 1 Worry too much? 2 Trouble relaxing? 3 Restless? 1 Irritable? 3 Afraid? 1 Total Score (0-5 mild; 6-10 moderate; 11-15 moderately severe; 15-21 severe) 14 RAM DIRECTOR/MORNING SHOW HOST documented in this encounter Miscellaneous Notes * Addendum Note - Eliseo Muñiz MD - 05/19/2022 7:36 AM CSTAddended by: ELISEO MUÑIZ on: 05/19/2022 07:36 AM Modules accepted: Orders RAM DIRECTOR/MORNING SHOW HOST documented in this encounter Plan of Treatment Upcoming Encounters Date Type Department Care Team (Late st Contact Info) Description 05/12/2024 9:30 AM PROGRAM DIRECTOR/MORNING SHOW HOST Appointment [facility] Breast [place] [address] [place] [address] Flaco Rosales MD [address] [place] [phone] 05/24/2024 7:00 AM PROGRAM DIRECTOR/MORNING SHOW HOST Procedure visit [facility] - STITCHER STANDARD MACHINE [address] [place] [phone] 06/07/2024 9:45 AM PROGRAM DIRECTOR/MORNING SHOW HOST Office Visit [facility] - STITCHER STANDARD MACHINE [address] [place] [phone] Flaco Rosales MD [address] [place] [phone] 07/11/2024 12:00 PM PROGRAM DIRECTOR/MORNING SHOW HOST Video Visit [facility] - Family Medicine [address] [facility] [place] [place] [address] Eliseo Muñiz MD [address] [place] [phone] documented as of this encounter Procedures Procedure Name Priority Date/Time Associated Diagnosis Comments TSH+FREE T4+FREE T3 Routine 05/14/2022 1 1:17 AM PROGRAM DIRECTOR/MORNING SHOW HOST Nausea and vomiting, unspecified vomiting type HIV-1 HIV-2 ANTIBODY + HIV P24 AG PANEL Routine 05/14/2022 11:17 AM PROGRAM DIRECTOR/MORNING SHOW HOST Encounter for screening for HIV CBC W AUTO DIFFERENTIAL Routine 05/14/2022 11:17 AM PROGRAM DIRECTOR/MORNING SHOW HOST Nausea and vomiting, unspecified vomiting type COMPREHENSIVE METABOLIC PANEL Routine 05/14/2022 11:17 AM PROGRAM DIRECTOR/MORNING SHOW HOST Nausea and vomiting, unspecified vomiting type LIPASE BLOOD Routine 05/14/2022 11:17 AM PROGRAM DIRECTOR/MORNING SHOW HOST Nausea and vomiting, unspecified vomiting type HEPATITIS C ANTIBODY Routine 05/14/2022 11:16 AM PROGRAM DIRECTOR/MORNING SHOW HOST Encounter for hepatitis C screening test for low risk patient documented in this encounter Results * HIV-1 HIV-2 ANTIBODY + HIV P24 AG PANEL (05/14/2022 11:17 AM PROGRAM DIRECTOR/MORNING SHOW HOST) HIV Screen 4th Generation w Reflex Non Reactive Non Reactive [facility] ACCOUNT BILL Comment: HIV Negative HIV-1/HIV-2 antibodies and HIV-1 p24 antigen were NOT detected. There is no laboratory evidence of HIV infection. FASTING Blood BLOOD SPECIMEN / Unknown 05/14/2022 11:17 AM PROGRAM DIRECTOR/MORNING SHOW HOST 05/14/2022 Narrative Resulting Agency Comment Lab Testing performed at: [facility] [address] ??[facility] [id number] Eliseo Muñiz MD LAB - CHEMISTRY CASSY SMITH [facility] Organization Address City/State/ZIP Co de Phone Number [facility] ACCOUNT BILL [address] [place] [address] * LIPASE BLOOD (05/14/2022 11:17 AM PROGRAM DIRECTOR/MORNING SHOW HOST) Lipase 9 8 - 78 U/L [facility] ACCOUNT BILL Comment: FASTING Blood BLOOD SPECIMEN / Unknown 05/14/2022 11:17 AM PROGRAM DIRECTOR/MORNING SHOW HOST 05/14/2022 Narrative Resulting Agency Comment Lab Testing performed at: [place] [address] [address] ?? [facility] [id number] Eliseo Muñiz MD LAB - CHEMISTRY CASSY SMITH [facility] ACCOUNT BILL [address] [place] [address] * TSH+FREE T4+FREE T3 (05/14/2022 11:17 AM PROGRAM DIRECTOR/MORNING SHOW HOST) TSH 0.6719 0.35 - 4.94 uIU/mL [facility] ACCOUNT BILL T3 Free 3.16 1.58 - 3.91 pg/mL [facility] ACCOUNT BILL T4 Free 1.15 0.70 - 1.48 ng/dL [facility] ACCOUNT BILL Comment:FASTING Blood BLOOD SPECIMEN / Unknown 05/14/2022 11:17 AM PROGRAM DIRECTOR/MORNING SHOW HOST 05/14/2022 Narrative Resulting Agency Comment Lab Testing performed at: [address] ??[facility] [id number] Eliseo Muñiz MD LAB - CHEMISTRY CASSY SMITH Performing Organization Address City/[facility]/ZIP Co de Phone Number [facility] ACCOUNT BILL [address] [place] [address] * COMPREHENSIVE METABOLIC PANEL (05/14/2022 11:17 AM PROGRAM DIRECTOR/MORNING SHOW HOST) Pathologist [facility] Glucose 88 70 - 105 mg/dL [facility] [...] BLOOD SPECIMEN / Unknown 05/14/2022 11:17 AM PROGRAM DIRECTOR/MORNING SHOW HOST 05/14/2022 Narrative Resulting Agency Comment Lab Testing performed at: [facility] [address] ?? [facility] [id number] Eliseo Muñiz MD LAB - CHEMISTRY CASSY SMITH [facility] ACCOUNT BILL [address] [place] [address] * CBC WITH DIFFERENTIAL (05/14/2022 11:17 AM PROGRAM DIRECTOR/MORNING SHOW HOST) WBC 4.4 4.4 - 10.7 x10E9/L [facility] [...] x10E9/L [facility] ACCOUNT BILL Comment:MPV FL BLOOD ([facility]) 9 .6 fl 9.4-12.9 Granulocytes % [...] BLOOD SPECIMEN / Unknown 05/14/2022 11:17 AM PROGRAM DIRECTOR/MORNING SHOW HOST 05/14/2022 Narrative Resulting Agency Comment Lab Testing performed at: [facility] [address] ?? [facility] [id number] Eliseo Muñiz MD LAB - HEMATOLOGY GERI DOLAN Performing Organization Address City/[facility] Co de Phone Number [facility] ACCOUNT BILL [address] [place] [address] * HEPATITIS C ANTIBODY (05/14/2022 11:16 AM PROGRAM DIRECTOR/MORNING SHOW HOST) Hepatitis C Antibody Non Reactive Non Reactive [facility] ACCOUNT BILL Comment: Non Reactive - Antibodies to Hepatitis C virus (HCV) were no t detected, result does not exclude early acute HCV infection. FASTING Blood BLOOD SPECIMEN / Unknown 05/14/2022 11:16 AM PROGRAM DIRECTOR/MORNING SHOW HOST 05/14/2022 Narrative Resulting Agency Comment Lab Testing performed at: [facility] [address] [facility] ??[facility] [id number] Eliseo Muñiz MD LAB - CHEMISTRY CASSY SMITH Performing Organization Address City/[facility] Co de Phone Number [facility] ACCOUNT BILL [address] [place] [address] documented in this encounter Visit Diagnoses Diagnosis Nausea and vomiting, unspecified vomiting type- Primary CASSIDY (generalized anxiety disorder) Generalized anxiety disorder Encounter for other general counseling or advice on contraception Personal history of kidney stones Personal history of urinary calculi documented in this encounter Care Teams Brake Assembler Relationship Specialty Start Date End Date Eliseo Muñiz MD [address] [place] [phone] PCP - General Family Medicine 05/13/22 documented as of this encounter
--- OUTSIDE RECORDS SUMMARY | 2024-05-04 16:50 | XMS_ITS | Encounter Summary ---
Author Organization [facility] Address [address] [facility] [place] [address] Care Team Providers Care Device Processing Engineer Name Role Phone Sena Moreno Primary Care Provider [phone] Reason for Referral * Procedure - Closed Specialty Diagnoses / Procedures Referred By Contac t Referred To Contact Cardiology Diagnoses Claudication (HCC) Procedures EKG 12-LEAD Volodymyr Salmon MD [address] [address] Referral ID Status Reason Start Date Expiration Date Visits Re quested Visits Authorized [id number] Closed 09/27/2014 03/26/2015 1 1 Reason for Visit * Reason Comments General coarctation of Aorta * Consultation (Routine) - Closed Specialty Diagnoses / Procedures Referred By Contac t Referred To Contact Cardiovascular Surgery Diagnoses Coarctation of aorta (HCC) age 5 coarctation of aorta Procedures n/a Sena Moreno APRN-CNM [address] [facility] [place] [address] Volodymyr Salmon MD 2 [facility] [address] [place] [address] Referral ID Status Reason Start Date Expiration Date Visits Re quested Visits Authorized [id number] Closed 09/05/2014 03/04/2015 1 1 Encounter Details Date Type Department Care Team (Late st Contact Info) Description 09/26/2014 9:30 AM CDT Office Visit [facility] [address] [facility], [address] [place] [address] Volodymyr Salmon MD 2 [facility] [address] [place] [address] Claudication (HCC) (Primary Dx) Social History Tobacco Use Types [...] Sign Reading Time Taken Comments Blood Pressure 118/77 09/26/2014 9:30 AM CDT Pulse 90 09/26/2014 9:30 AM CDT Temperature 36.6 ??C (97.8 ??F) 09/26/2014 9:30 AM CD T Respiratory Rate 20 09/26/2014 9:30 AM CDT Oxygen Saturation 100% 09/26/2014 9:30 AM CDT Inhaled Oxygen Concentration - - Weight 68 kg (150 lb) 09/26/2014 9:30 AM CDT Height 165.1 cm (5' 5 ) 09/26/2014 9:30 AM CDT Body Mass Index 24.96 09/26/2014 9:30 AM CDT documented in this encounter Patient Instructions * Patient Instructions* Edyta Downing RN - 09/26/2014 10:00 AM CDT 1. Your ABIs have been scheduled at [facility] for 10/10/14 at 10:00 AM. Please arrive 15 minutes prior to the Patient Entrance of [facility] to register. No special preparations needed. If you need to reschedule your testing, you can call [phone]. After you have rescheduled your test, call our office at [phone] to notify our office of your new test date and time. 2. Return to clinic after testing to see Dr. Salmon. documented in this encounter Progress Notes * Volodymyr Salmon MD - 09/26/2014 9:35 AM CDT SEE H&P documented in this encounter H&P Notes * Volodymyr Salmon MD - 09/26/2014 10:03 AM CDT [facility] Volodymyr Salmon MD 09/26/2014 Karla Castaneda 24 y.o. female 1990 REQUESTING PROVIDER: Sena Moreno CHIEF COMPLAINT: Coarctation of the aorta. HISTORY: Karla Castaneda is a 24 y.o. female who presents to [facility]. She has a history of coarctation of the aorta that was surgically repaired at the age of [age]. She has lived a full healthy life since then, and participated in competitive softball up until recently. She denies chest pain, shortness of breath, palpitations, syncope, arm or leg pain with exertion. She is now and presents for risk assessment. REVIEW OF SYSTEMS: A 14 point review of systems was reviewed and was negative except that mentioned in the HPI. No current facility-administered medications for this visit. Prior to Admission medications Medication Sig Start Date End Date Taking? Authorizing Provider MV-Min-Fe Fum-FA-DHA ( 1 PO) Take 1 Tab by mouth once daily. Yes Historical Provider, docusate sodium (COLACE) 100 MG capsule Take 100 mg by mouth once daily. Historical Provider, No Known Allergies No past medical history on file. Past Surgical History Procedure Laterality Date ??? Other surgery 1994 open heart surgery History Social History ??? Marital Status: Spouse Name: N/A Number of Children: N/A ??? Years of Education: N/A Occupational History ??? Not on file. Social History Main Topics ??? Smoking status: Former Smoker -- 0.25 packs/day ??? Smokeless tobacco: Not on file ??? Alcohol Use: No ??? Drug Use: No ??? Sexual Activity: Not on file Other Topics Concern ??? Not on file Social History Narrative There is no family history of premature coronary artery disease in first degree relatives. EXAMINATION: BP 118/77 mmHg Pulse 90 Temp(Src) 97.8 ??F (Oral) Resp 20 Wt 68.04 kg (150 lb) BMI 24.96 kg/m2 CONSTITUTIONAL: Well developed female in no acute distress. EYES: Extra ocular movements intact, no conjunctival erythema or exudate, pupils are reactive to light. ENTM: External auditory canals are normal, nares are moist and without exudate, throat is without exudate or erythema, oral mucosa is moist. NECK: No thyromegaly or lymphadenopathy. CARDIO: S1S2, RRR, there is a soft systolic murmur that radiates across her chest, gallops, or rubs, no JVD, no carotid bruits. There are strong bilateral radial artery and femoral artery pulses. RESP: Lungs clear to auscultation bilaterally. Chest wall is normal to palpation and percussion. The respiratory effort is normal. ABDOMEN: Soft, non-tender to palpation, normal bowel sounds, she is obviously gravid. MUSCULOSKELETAL: No kyphosis or scoliosis. SKIN: No rashes or stasis ulcers. Multiple tattoos and piercings. EXTREMITIES: No clubbing, cyanosis, or edema. PSYCH: Normal mood and affect, alert and oriented. DATA REVIEW: Recent Labs Component Name 06/14/14 2341 05/29/14 2312 WBC 12.4* 10.9* HGB 14.1 15.8* HCT 39.8 45.0* PLTCOUNT 225 303 Recent Labs Component Name 06/14/14 2341 05/29/14 2312 SODIUM 135* 140 POTASSIUM 3.4 3.8 CHLORIDE 103 104 CO2 17* 18* BUN 7.7* 9.2* CREATININE 0.63 0.70 GLUCOSE 90 91 Records have been requested regarding her childhood surgery for correction of her coarctation. Ankle-brachial indices of the requested. ECHO 09/14/14: - Clinical question: History of [...] Right Le/118 Left Arm: 111/72 Left Le/121 EKG 09/26/2014: Normal sinus rhythm, rightward axis. ASSESSMENT AND PLAN: Coarctation of the aorta, status post repair: She is without symptoms of claudication in her blood pressure is well controlled. Her echocardiogram, however, suggested a significant gradient across her coarctation. I recommended ankle-brachial indices for further assessment and we have requested records. She will followup in two weeks to review results. Volodymyr Salmon MD Cook Dinner [facility] [place] 09/26/2014 10:03 AM documented in this encounter Miscellaneous Notes * Addendum Note - Edyta Downing RN - 09/27/2014 1:51 PM CDTAddended by: EDYTA DOWNING on: 09/27/2014 01:51 PM Modules accepted: Orders documented in this encounter Plan of Treatment Upcoming Encounters Date Type Department Care Team (Late st Contact Info) Description 05/12/2024 9:30 AM VALUE STREAM COACH Appointment [address] [place] [address] Flaco Rosales MD [address] [place] [address] [place] [phone] 05/24/2024 7:00 AM VALUE STREAM COACH Procedure visit [facility] - POST CLOSER [address] [place] [address] [facility] [place] [place] [phone] 06/07/2024 9:45 AM VALUE STREAM COACH Office Visit [facility] - POST CLOSER [address] [place], [place] [address] Flaco Rosales MD [address] [facility] [place] [address] 07/11/2024 12:00 PM VALUE STREAM COACH Video Visit [facility] - Family Medicine [address] [place] [place] [address] Deb Montenegro MD [address] [place] [phone] documented as of this encounter Procedures Procedure Name Priority Date/Time Associated Diagnosis Comments SD ELECTROCARDIOGRAM, COMPLETE Routine 09/26/2014 Claudication (HCC) EKG 12-LEAD Routine 09/26/2014 Claudication (HCC) documented in this encounter Results * SD ELECTROCARDIOGRAM, COMPLETE (09/26/2014) Volodymyr Salmon MD [place] - PROFESSIONAL SE RVICES * EKG 12-LEAD (09/26/2014) Volodymyr Salmon MD ECG ORDERABLES documented in this encounter Visit Diagnoses Diagnosis Claudication (HCC)- Primary Peripheral vascular disease, unspecified documented in this encounter Care Teams Device Processing Engineer Relationship Specialty Start Date End Date Sena Moreno APRN-CNM [address] [facility] [place] [phone] PCP - General Nurse Practitioner 09/13/14 03/06/18 documented as of this encounter
--- OUTSIDE RECORDS SUMMARY | 2024-05-04 16:50 | XMS_ITS | Clinical Summary ---
Author Organization [facility] [employer] Address [address] [facility] [place] [address] Care Team Providers Care Welder Helper Name Role Phone Deb Montenegro MD Primary Care Provider [phone] Source Comments [facility] [employer],non-owned Affiliates and Associated Physician Practices is amultiple site organization consisting of ambulatory clinics and hospital sitesin [place], [place], [place] and [place]. This disclosure is being madepursuant to the Care Everywhere program and may not contain all information available regarding this patient. Last updated 18.[facility] [employer] Allergies No known active allergies Medications * [...] mammogram Assessment & Plan (04/05/2024 3:18 PM DOUGH MIXER OPERATOR): Reviewed cervical cancer pathophysiology as well as [...] discuss contraceptive options She is currently on June, but is having mood issues She is or is not: is sexually active Her periods are regular Assessment & Plan (05/15/2022 12:46 PM DOUGH MIXER OPERATOR): The patient was counseled regarding all options [...] first 12/24/2014 Gestational hypertension 12/24/2014 Scoliosis 09/04/2014 Encounters Date Type Department Care Team Description 04/21/2024 Telephone [facility] [address] [place] [phone] Flaco Rosales MD Surgery Scheduling 04/18/2024 Refill [facility] [address] [place] [address] Deb Montenegro MD Refill Request 04/17/2024 Telephone [facility] - ICE CREAM MAKER [address] [facility] [place] [phone] Flaco Rosales MD Appointment 04/05/2024 3:15 PM DOUGH MIXER OPERATOR Office Visit [facility] - ICE CREAM MAKER [phone] [place] [address] [place] [address] Flaco Rosales MD Well woman exam with routine gynecological exam (Primary Dx); Mass of lower outer quadrant of left breast from Last 3 Months Immunizations Name Administration Dates Next Due INFLUENZA VACCINE, QUADR. (F LUZONE; FLULAVAL; FLUARIX; AFLURIA QUADRIVALENT; 6MO+), 0.5 ML (IIV4) 03/14/2018 TDAP (7yrs+) 12/26/2014 iNFLUENZA VACCINE, RECOM-TORRES, QUADR. (FLUBLOCK QUADRIVALENT; 18Y+) (RIV4) 03/01/2019 Family History Medical History Relation Name Comments Diabetes; unknown type Father Heart Failure Maternal Grandfather Diabetes Maternal Grandmother Diabetes - Type 2 Maternal Grandmother Heart Failure Maternal Grandmother Diabetes; unknown type Paternal Grandmother Other - Cardiac Sister Relation Name Status Comments Father Maternal Grandfather Maternal Grandmother Paternal Grandmother Sister Social History Tobacco Use Types Packs/Day Years [...] Comments Blood Pressure 120/76 04/05/2024 2:59 PM DOUGH MIXER OPERATOR Pulse 103 07/15/2022 8:20 AM DOUGH MIXER OPERATOR Temperature 36.4 ??C (97.6 ??F) 07/15/2022 8:20 AM CS T Respiratory Rate 20 03/07/2018 3:42 PM CDT Oxygen Saturation 99% 07/15/2022 8:20 AM DOUGH MIXER OPERATOR Inhaled Oxygen Concentration - - Weight 53.1 kg (117 lb) 04/05/2024 2:59 PM DOUGH MIXER OPERATOR Height 167.6 cm (5' 6 ) 04/05/2024 2:59 PM DOUGH MIXER OPERATOR Body Mass Index 18.88 04/05/2024 2:59 PM DOUGH MIXER OPERATOR Plan of Treatment Upcoming Encounters Date Type Department Care Team (Late st Contact Info) Description 05/12/2024 9:30 AM DOUGH MIXER OPERATOR Appointment [facility] Breast [address] [place] [address] Flaco Rosales MD [address] [place] [phone] 05/24/2024 7:00 AM DOUGH MIXER OPERATOR Procedure visit [facility] - ICE CREAM MAKER [address] [place] [phone] 06/07/2024 9:45 AM DOUGH MIXER OPERATOR Office Visit [facility] - ICE CREAM MAKER [address] [place] [phone] Flaco Rosales MD [address] [place] [phone] 07/11/2024 12:00 PM DOUGH MIXER OPERATOR Video Visit [facility] - Family Medicine [address] [facility] [place] [address] Deb Montenegro MD [address] [facility] [phone] Health Maintenance Due Date Last Done Comments PNEUMOCOCCAL VACCINE ( 2 - PCV) 1995 HEPATITIS B VACCINE (1 of 3 - 19+ 3-dose series) 02/17/2008 COVID-19 VACCINE (1 - 2023-2 5 season) 2024 INFLUENZA VACCINE (#1) 2024 9, 03/14/2018 DTAP/TDAP/TD VACCINES (2 - T d or Tdap) 12/26/2024 12/26/2014 PAP SMEAR 04/05/2027 04/05/2024 ZOSTER VACCINE (1 of 2) 2039 HEPATITIS C SCREENING Completed 05/14/2022 HIV SCREENING Completed 05/14/2022 DEPRESSION SCREENING Completed 04/05/2024, 07/15/2022, 05/13/2022 HIB VACCINE Aged Out No longer eligi ble based on patient's age to complete this topic HPV VACCINE Aged Out No longer eligi ble based on patient's age to complete this topic MENINGOCOCCAL VACCINE Aged Out No justa fadi eligible based on patient's age to complete this topic Procedures Procedure Name Priority Date/Time Associated Diagnosis Comments PAP IG LB RFLX HPV APTIMA ASCU Routine 04/05/2024 3:37 PM DOUGH MIXER OPERATOR Well woman exam with routine gynecological exam HIV-1 HIV-2 ANTIBODY + HIV P24 AG PANEL Routine 05/14/2022 11:17 AM DOUGH MIXER OPERATOR Encounter for screening for HIV HEPATITIS C ANTIBODY Routine 05/14/2022 11:16 AM DOUGH MIXER OPERATOR Encounter for hepatitis C screening test for low risk patient from Last 3 Months or Most Recently Relevant to Health Maintenance Results * PAP IG LB RFLX HPV APTIMA ASCU (04/05/2024 3:37 PM DOUGH MIXER OPERATOR) Diagnosis Comment [facility] ACCOUNT BILL Comment:NEGATIVE FOR [...] UTERINE CERVIX / Unknown 04/05/2024 3:37 PM DOUGH MIXER OPERATOR 04/05/2024 Comment:Cervix Release to [facility] Narrative [facility] ACCOUNT BILL - 04/12/2024 11:13 AM DOUGH MIXER OPERATOR Performed at: ??[address] ??[id number] Non Profit Financial Controller: Keena Montejo MD, Phone: ??[phone] Specimen Comment: [id number] Specimen Comment: No. of containers..01 ThinPrep Vial Flaco Rosales MD LAB - PATHOLOGY/CYTO LOGY ORDERABLES [facility] ACCOUNT BILL [address] [place] [address] * HIV-1 HIV-2 ANTIBODY + HIV P24 AG PANEL (05/14/2022 11:17 AM DOUGH MIXER OPERATOR) HIV Screen 4th Generation w Reflex Non Reactive Non Reactive [facility] ACCOUNT BILL Comment: HIV Negative HIV-1/HIV-2 antibodies and HIV-1 p24 antigen were NOT detected. There is no laboratory evidence of HIV infection. FASTING Blood BLOOD SPECIMEN / Unknown 05/14/2022 11:17 AM DOUGH MIXER OPERATOR 05/14/2022 Narrative Resulting Agency Comment Lab Testing performed at: [facility] [place] [address] [facility] ??[facility] [id number] Deb Montenegro MD LAB - CHEMISTRY ORDE RABLES [facility] ACCOUNT BILL [address] [place] [address] * HEPATITIS C ANTIBODY (05/14/2022 11:16 AM DOUGH MIXER OPERATOR) Hepatitis C Antibody Non Reactive Non Reactive [facility] ACCOUNT BILL Comment: Non Reactive - Antibodies to Hepatitis C virus (HCV) were no t detected, result does not exclude early acute HCV infection. FASTING Blood BLOOD SPECIMEN / Unknown 05/14/2022 11:16 AM DOUGH MIXER OPERATOR 05/14/2022 Narrative Resulting Agency Comment Lab Testing performed at: [address] ??[facility] [id number] Deb Montenegro MD LAB - CHEMISTRY CASSY SMITH Performing Organization Address City/[facility]/ZIP Co de Phone Number [facility] ACCOUNT BILL [address] [place] [address] from Last 3 Months or Most Recently Relevant to Health Maintenance Advance Directives * Full Code (Latest Code Status on File) Date Activated Date Inactivated Comments 12/25/2014 9:19 AM 12/28/2014 1:18 PM * Full Code Date Activated Date Inactivated Comments 12/24/2014 10:06 AM 12/25/2014 9:19 AM Care Teams Welder Helper Relationship Specialty Start Date End Date Deb Montenegro MD [address] [place] [place] [address] PCP - General Family Medicine 05/13/22
--- OUTSIDE RECORDS SUMMARY | 2024-05-04 16:50 | XMS_ITS | Encounter Summary ---
Author Organization [facility] Address [address] [place] [address] Care Team Providers Care Environmental Health And Safety Manager Name Role Phone MayankeladiaEvelyn COMMISSION AUDITOR-WEATHERIZATION OPERATIONS MANAGER Primary Care Provider [phone] Encounter Details Date Type Department Care Team (Late st Contact Info) Description 01/25/2020 7:53 AM CDT - 01/25/2020 11:59 PM CDT Hospital Encounter [facility] - [facility] Blood Draw [address] [address] Kiley Escamilla APRN-CNP [address] [place] [address] Discharge Disposition: Home or Self Care Social [...] No 12/24/2014 documented as of this encounter Medications at Time of Discharge Medication Sig Dispensed Refills Start Date End Date Multiple Vitamins-Minerals (MULTIVITAMIN ADULT PO) 1 gummy vitamin daily ibuprofen (MOTRIN) 600 MG tablet Take 1 Tab by mouth every 6 hours 40 Tab 1 12/28/2014 07/15/2022 LO LOESTRIN FE tablet Take 1 tablet by mouth once daily 4 01/19/2019 05/13/2022 documented as of this encounter Plan of Treatment Upcoming Encounters Date Type Department Care Team (Late st Contact Info) Description 05/12/2024 9:30 AM GM MOBILE Appointment [place] [address] [place] [address] Flaco Rosales MD [address] [place] [address] [place] [phone] 05/24/2024 7:00 AM GM MOBILE Procedure visit [facility] - POWER GENERATION EQUIPMENT REPAIRER [address] [place] [phone] 06/07/2024 9:45 AM GM MOBILE Office Visit [facility] - POWER GENERATION EQUIPMENT REPAIRER [address] [place] [phone] Flaco Rosales MD [address] [place] [address] [phone] 07/11/2024 12:00 PM GM MOBILE Video Visit [facility] - Family Medicine [address] [facility] [place] [phone] Deb Montenegro MD [address] [facility] [place] [phone] documented as of this encounter Procedures Procedure Name Priority Date/Time Associated Diagnosis Comments SARS-COV-2 (COVID-19) IN HOUSE Routine 01/25/2020 7:56 AM CDT Exposure to SARS-associated coronavirus documented in this encounter Results * SARS-COV-2 (COVID-19) ST[facility] MICRO (01/25/2020 7:56 AM CDT) COVID-19 PCR Not detected Not detected, Invalid 01/27/2020 2:31 PM CDT [facility] Microbiology SPECIMEN FROM NASOPHARYNGEAL STRUCTURE / Unknown Collection / Unknown 01/25/2020 7:56 AM CDT 01/25/2020 7:56 AM CDT Narrative [facility] - 01/27/2020 2:31 PM CDT This Real Time RT-PCR assay was developed and its performance characteristics determined by [facility]. This test has been authorized [...] is terminated or revoked sooner. Kiley Escamilla COMMISSION AUDITOR-WEATHERIZATION OPERATIONS MANAGER LAB - MICROBIOLOGY ORDERABLES [facility] [address] [place] [address], [facility] [phone] documented in this encounter Visit Diagnoses Diagnosis Exposure to SARS-associated coronavirus- Primary documented in this encounter Additional Health Concerns Infection Onset Date Last Indicated Resolved Time COVID-19 Under Investigation 01/25/2020 01/25/2020 01/27/2020 2:31 PM CDT documented as of this encounter Care Teams Environmental Health And Safety Manager Relationship Specialty Start Date End Date Evelyn Beach, COMMISSION AUDITOR-WEATHERIZATION OPERATIONS MANAGER [address] [facility] [place] [address] PCP - General Nurse Practitioner 03/07/18 05/12/22 documented as of this encounter
--- OUTSIDE RECORDS SUMMARY | 2024-05-04 16:50 | XMS_ITS | Encounter Summary ---
Author Organization [facility] Address [address] [facility] [place] [address] Care Team Providers Care Hospital Administrative Assistant Name Role Phone Sena Moreno Primary Care Provider [phone]- [phone] Reason for Referral * Cardiac - Closed Specialty Diagnoses / Procedures Referred By Edmond morgan Referred To Contact Cardiology Diagnoses History of aortic coarctation repair Procedures ECHOCARDIOGRAM 2D WITH DOPPLER Sena Moreno APRN-CNM [address] [facility] [place] [address] Referral ID Status Reason Start Date Expiration Date Visits Re quested Visits Authorized [id number] Closed 09/14/2014 03/13/2015 1 1 * Cardiac - Closed Specialty Diagnoses / Procedures Referred By Edmond morgan Referred To Contact Cardiology Diagnoses History of aortic coarctation repair Procedures ECHOCARDIOGRAM 2D WITH DOPPLER Sena Moreno APRN-CNM [facility] [place] [address] Referral ID Status Reason Start Date Expiration Date Visits Re quested Visits Authorized [id number] Closed 09/14/2014 03/13/2015 1 1 Reason for Visit * Other Medical (Routine) - Closed Specialty Diagnoses / Procedures Referred By Edmond t Referred To Contact Cardiology Diagnoses 2 d echo Sena Moreno APRN-CNM [address] [facility] [place] [address] [facility] Cardiology 1 [place] [address] Referral ID Status Reason Start Date Expiration Date Visits Re quested Visits Authorized [id number] Closed 09/14/2014 03/13/2015 1 1 Encounter Details Date Type Department Care Team (Latest Contact Info) Description 09/14/2014 8:51 AM CDT - 09/14/2014 11:59 PM CDT Hospital Encounter [facility] - Cardiology 1 [place] [address] Sena Moreno APRN-CN [address] [facility] [place] [address] Discharge Disposition: Home or Self Care Social History Tobacco Use Types Packs/Day Years Used Date Smoking Tobacco: Former Cigarettes Alcohol Use Standard Drinks/Week Comments No 0 (1 standard drink = 0.6 oz pur e alcohol) Sex and Gender Information Value Date Recorded Sex Assigned at Not on file Gender Identity Not on file Sexual Orientation Not on file documented as of this encounter Medications at Time of Discharge Medication Sig Dispensed Refills Start Date End Date docusate sodium (COLACE) 100 MG capsule Take 100 mg by mouth once daily. 12/24/2014 ondansetron, disintegrating, (ZOFRAN ODT) 4 MG tablet Take 1 Tab by mouth every 6 hours as needed for Nausea/Vomiting. Allow tablet to dissolve on the tongue 20 Tab 0 06/15/2014 09/26/2014 ondansetron, disintegrating, (ZOFRAN ODT) 8 MG tablet Take 1 Tab by mouth every 4 hours as needed for Nausea/Vomiting. Allow tablet to dissolve on the tongue 20 Tab 0 05/30/2014 09/26/2014 promethazine (PHENERGAN) 25 MG tablet Take 25 mg by mouth every 6 hours as needed for Nausea/Vomiting. 09/26/2014 documented as of this encounter Plan of Treatment Upcoming Encounters Date Type Department Care Team (Late st Contact Info) Description 05/12/2024 9:30 AM HEDDLER Appointment [facility] Breast [place] [address] [place] [address] Flaco oRsales MD [address] [place] [address] [place] [address] 05/24/2024 7:00 AM HEDDLER Procedure visit [facility] - MOTION PICTURE EQUIPMENT SUPERVISOR [address] [place], [place] [address] [address] 06/07/2024 9:45 AM HEDDLER Office Visit [facility] - MOTION PICTURE EQUIPMENT SUPERVISOR [address] [place] [address] Flaco Rosales MD [address] [place] [address] [place] [address] 07/11/2024 12:00 PM HEDDLER Video Visit [facility] - Family Medicine [address] [facility] [address] [place] [address] Deb Montenegro MD [address] [place] [address] documented as of this encounter Procedures Procedure Name Priority Date/Time Associated Diagnosis Comments ECHOCARDIOGRAM 2D WITH DOPPLER Routine 09/14/2014 12:00 AM CDT History of aortic coarctation repair documented in this encounter Results * ECHOCARDIOGRAM 2D WITH DOPPLER (09/14/2014 12:00 AM CDT) 09/14/2014 Narrative [facility] CARDIOLOGY - 09/15/2014 2:04 PM CDT [address] [address] Transthoracic Echocardiogram 2D, M-mode, Doppler, and Color Doppler Patient: DOMINGO CASTANEDA MR #: [id number] : 1990 Age: 24 years Gender: Female Study date: 14-Sep-2014 Status: Outpatient Room: - HR: 77 bpm Height: 65 in 65 in Weight: 146.7 lb 147 lb BSA: 1.74 m?? 1.74 m?? BP: 142/ 75 Referring Physician: ??Unlisted Ordering Physician: ??Ry Murray MD Pulley Worker: ??Cortez Campblel MD, [facility], [facility], [facility], [facility] Mother'S Helper: ??Julio Person [facility] Pulley Worker: ??[facility] Heart and Vascular Summary: - ??Clinical question: [...] and Electronically Authenticated Cortez [place] MD, FACC, FSCAI, FASE, FASNC 15-Sep-2014 14:12:15 Procedure Note Unknown, Provider - 09/15/2014 [facility] 1 [place] [address] Transthoracic Echocardiogram 2D, M-mode, Doppler, and Color Doppler Patient: DOMINGO CASTANEDA MR #: [id number] : 1990 Age: 24 years Gender: Female Study date: 14-Sep-2014 Status: Outpatient Room: - HR: 77 bpm Height: 65 in 65 in Weight: 146.7 lb 147 lb BSA: 1.74 m?? 1.74 m?? BP: 142/ 75 Referring Physician: Unlisted Ordering Physician: Ry Murray MD Pulley Worker: Cortez [place] MD, [facility], STARLA SUAREZ FASNC Mother'S Helper: Julio Person RDCS Pulley Worker: [facility] Heart and Vascular Summary: - Clinical question: [...] generated for this procedure were personally reviewedby tn. Prepared and Electronically Authenticated Cortez [place] MD, FACC, [facility], STARLA, ANTIONE 15-Sep-2014 14:12:15 Sena OLVERA ECHO ORDERABLES [facility] CARDIOLOGY documented in this encounter Visit Diagnoses Diagnosis History of aortic coarctation repair- Primary Personal history of surgery to heart and great vessels, presenting hazards to health documented in this encounter Care Teams Hospital Administrative Assistant Relationship Specialty Start Date End Date Sena Moreno APRN-CNM [address] [facility] [place] [address] PCP - General Nurse Practitioner 09/13/14 03/06/18 documented as of this encounter
--- OUTSIDE RECORDS SUMMARY | 2024-05-04 16:50 | XMS_ITS | Encounter Summary ---
Author Organization [facility] Address [address] [facility] [place] [address] Care Team Providers Care Sports Cartoonist Name Role Phone Deb Montenegro MD Primary Care Provider + [phone] Reason for Visit * Reason Onset Date Comments Surgery Scheduling 04/21/2024 Encounter Details Date Type Department Care Team (Late st Contact Info) Description 04/21/2024 Telephone [facility] - Family [address] [facility] [address] [place] [address] Flaco Rosales MD [address] [place] [address] Surgery Scheduling Social History Tobacco Use Types Packs/Day Years [...] encounter Miscellaneous Notes * Telephone Encounter - Dahlia Guy - 04/21/2024 1:12 PM CST Karla Castaneda is scheduled for surgery at [facility] on May 24, 2024 at 7:00 a.m. (arrival time of 5:00 a.m.). PATIENT: Karla Castaneda STEM MAKER: yes PROCEDURE: Bilateral salpingectomy DIAGNOSIS: Encounter for sterilization CPT CODES: 01053 ICD 10 CODES: Z30.2 HOSPITAL: [facility] INPATIENT OR OUTPATIENT: outpatient ANESTHESIA TYPE: General AMOUNT OF TIME NEEDED: 45 min MEDICAL CLEARANCE: No Surgery Scheduling Checklist Referral Created/Routed to Pool yes [facility] Updated yes Epic Surgery Schedule Updated yes Surgery Scheduling Request Form Faxed Post-Op Visit(s) Scheduled Yes Surgery Info Sent to Patient via [employer] ER REPAIR TECHNICIAN documented in this encounter Plan of Treatment Upcoming Encounters Date Type Department Care Team (Late st Contact Info) Description 05/12/2024 9:30 AM COPIER REPAIR TECHNICIAN Appointment [facility] Breast [place] [address] [place] [address] Flaco Rosales MD [address] [place] [phone] 05/24/2024 7:00 AM COPIER REPAIR TECHNICIAN Procedure visit [facility] - RN NEONATAL [address] [place] [phone] 06/07/2024 9:45 AM COPIER REPAIR TECHNICIAN Office Visit [facility] - RN NEONATAL [address] [place] [address] Flaco Rosales MD [address] [place] [phone] 07/11/2024 12:00 PM COPIER REPAIR TECHNICIAN Video Visit [facility] - Family Medicine [address] [facility] [place] [address] Deb Montenegro MD [address] [place] [address] documented as of this encounter Visit Diagnoses Not on filedocumented in this encounter Care Teams Sports Cartoonist Relationship Specialty Start Date End Date Deb Montenegro MD [address] [place] [address] PCP - General Family Medicine 05/13/22 documented as of this encounter
--- OUTSIDE RECORDS SUMMARY | 2024-05-04 16:50 | XMS_ITS | Encounter Summary ---
Author Organization [facility] Address [address] [facility] [place] [address] Care Team Providers Care Cvicu Nurse Name Role Phone Deb Montenegro MD Primary Care Provider + [phone] Encounter Details Date Type Department Care Team (Latest Contact Info) Description 07/15/2022 Travel Social History Tobacco Use Types Packs/Day [...] Coronavirus/COVID-19? No / Unsure 07/15/2022 8:10 AM REPEAT CHIEF documented as of this encounter Functional Status [...] st Contact Info) Description 05/12/2024 9:30 AM REPEAT CHIEF Appointment [facility] Breast [facility] [address] [place] [address] Flaco Rosales MD [address] [place] [address] [place] [address] 05/24/2024 7:00 AM REPEAT CHIEF Procedure visit [facility] - HEARING AID REPAIRER [address] [place] [phone] 06/07/2024 9:45 AM REPEAT CHIEF Office Visit [facility] - HEARING AID REPAIRER [address] [place] [address] Flaco Rosales MD [address] [place] [phone] 07/11/2024 12:00 PM REPEAT CHIEF Video Visit [facility] - Family Medicine [address] [facility] [place] [address] Deb Montenegro MD [address] [place] [address] documented as of this encounter Visit Diagnoses Not on filedocumented in this encounter Care Teams Cvicu Nurse Relationship Specialty Start Date End Date Deb Montenegro MD [address] [place] [address] PCP - General Family Medicine 05/13/22 documented as of this encounter
--- OUTSIDE RECORDS SUMMARY | 2024-05-04 16:50 | XMS_ITS | Encounter Summary ---
Author Organization [facility] Address [address] [facility] [place] [address] Care Team Providers Care Knit Tubing Dyer Name Role Phone Evelyn Beach Mylene RN EMPLOYEE HE[employer]DERRICK ENGINEER Primary Care Provider [phone] Encounter Details Date Type Department Care Team (Latest Contact Info) Description 03/14/2018 9:30 AM CDT Clinical Support [address] [address] Need for prophylactic vaccination and inoculation against influenza Social History Tobacco Use Types Packs/Day Years [...] st Contact Info) Description 05/12/2024 9:30 AM GLASS CHECKER Appointment [facility] Breast Care [address] [place] [address] Flaco Rosales MD [address] [facility] [place] [phone] 05/24/2024 7:00 AM GLASS CHECKER Procedure visit [facility] - TOW BOAT CAPTAIN [address] [place] [phone] 06/07/2024 9:45 AM GLASS CHECKER Office Visit [facility] - TOW BOAT CAPTAIN [address] [place] [address] Flaco Rosales MD [address] [place] [phone] 07/11/2024 12:00 PM GLASS CHECKER Video Visit [facility] - Family Medicine [address] [facility] [address] [place] [place] [address] Deb Montenegro MD [address] [address] [facility] [place] [address] documented as of this encounter Visit Diagnoses Diagnosis Need for prophylactic vaccination and inoculation against influenza- Primary documented in this encounter Care Teams Knit Tubing Dyer Relationship Specialty Start Date End Date Evelyn Beach, RN EMPLOYEE HE[employer]ICK ENGINEER [address] [facility] [place] [address] PCP - General Nurse Practitioner 03/07/18 05/12/22 documented as of this encounter
--- OUTSIDE RECORDS SUMMARY | 2024-05-04 16:51 | XMS_ITS | Encounter Summary ---
Author Organization [facility] Address [address] [facility] [place] [address] Care Team Providers Care Game Technician Name Role Phone Unavailable Primary Care Provider Unavailabl e Reason for Visit * Reason Comments VOMITING DURING Encounter Details Date Type Department Care Team (Late st Contact Info) Description 06/14/2014 11:07 PM SYSTEM OPERATOR - 06/15/2014 4:53 AM SYSTEM OPERATOR Emergency ER at [address] [address] Faustino Sam, DO [address] [place] [address] Hyperemesis gravidarum (HCC) Discharge Disposition: Home or Self Care Social [...] Sign Reading Time Taken Comments Blood Pressure 105/67 06/15/2014 4:36 AM SYSTEM OPERATOR Pulse 114 06/14/2014 11:02 PM SYSTEM OPERATOR Temperature 36.6 ??C (97.9 ??F) 06/14/2014 11:[address] Respiratory Rate 22 06/14/2014 11:02 PM SYSTEM OPERATOR Oxygen Saturation 98% 06/15/2014 3:59 AM SYSTEM OPERATOR Inhaled Oxygen Concentration - - Weight 55.8 kg (123 lb) 06/14/2014 11:02 PM SYSTEM OPERATOR Height 165.1 cm (5' 5 ) 06/14/2014 11:02 PM SYSTEM OPERATOR Body Mass Index 20.47 06/14/2014 11:02 PM SYSTEM OPERATOR documented in this encounter Discharge Instructions * Discharge Instructions* Faustino Sam, DO - 06/15/2014 4:45 AM SYSTEM OPERATOR Follow up with your OB doctor within the next few days for follow up care. Return to ER if worsen in any way. Encourage clear liquids, advance as tolerated. Hyperemesis Gravidarum Diet Hyperemesis gravidarum is a severe form of morning sickness. It is characterized by frequent and severe vomiting. It happens during the first trimester of . It may be caused by the rapid hormone changes that happen during . It is associated with a 5% weight loss of pre- weight. The hyperemesis diet may be used to lessen symptoms of nausea and vomiting. EATING GUIDELINES ?? Eat 5 to 6 small meals daily instead of 3 large meals. ?? Avoid foods with strong smells. ?? Avoid drinking 30 minutes before and after meals. ?? Avoid fried or high-fat foods, such as butter and cream sauces. ?? Starchy foods are usually well-tolerated, such as cereal, toast, bread, potatoes, pasta, rice, and pretzels. ?? Eat crackers before you get out of bed in the morning. ?? Avoid spicy foods. ?? Marga may help with nausea. Add ?? tsp marga to hot tea or choose marga tea. ?? Continue to take your vitamins as directed by your caregiver. SAMPLE MEAL PLAN Breakfast ? cup oatmeal ?? 1 slice toast ?? 1 tsp heart-healthy margarine ?? 1 tsp jelly ?? 1 scrambled egg Midmorning Snack ?? 1 cup low-fat yogurt Lunch ?? Plain ham sandwich ?? Carrot or celery sticks ?? 1 small apple ?? 3 bert crackers Midafternoon Snack ?? Cheese and crackers Dinner ?? 4 oz pork tenderloin ?? 1 small baked potato ?? 1 tsp margarine ? cup broccoli ? cup grapes Evening Snack ?? 1 cup pudding Document Released: 02/28/2008 Document Revised: 07/25/2012 Document Reviewed: 08/28/2011 [employer]?? Patient Information ??2014 [employer] EM OPERATOR documented in this encounter Medications at Time [...] Nausea/Vomiting. 09/26/2014 documented as of this encounter Progress Notes * Rosy Uribe RN - 06/17/2014 9:04 AM CSTQuick Note: Results forwarded to MARIUSZ Velez for review and further treatment. EM OPERATOR documented in this encounter ED Notes * Jose Chester PA - 06/18/2014 6:05 PM CST This 24 yowf seen yesterday by Dr Sam grows a positive urine culture. I called in macrobid 100mgpo BID x 7 days to [facility]. She is aware. EM OPERATOR * Tara Jimenez RN - 06/15/2014 4:44 AM CST Patient discharge home with driving. EM OPERATOR * Tara Jimenez RN - 06/15/2014 3:05 AM CST Patient states she is feeling a lot better. Denies any nausea. EM OPERATOR * Faustino Sam, DO - 06/15/2014 12:04 AM CST Provider contact with the patient: 06/15/2014 00:[id number] [facility] EM[facility]ENCY DEPARTMENT History Chief Complaint Patient presents with ??? VOMITING DURING HPI Comments: 12:04 AM: Pt presents to the ED accompanied by c/o vomiting onset yesterday. Pt also c/o nausea and constipation, but denies diarrhea, cramping, and spotting. Pt states she is 8weeks today and this is her first . There are no other complaints at this time. 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 Chatman No past medical history on file. Past Surgical History Procedure Laterality Date ??? Other surgery 1994 open heart surgery Family History Problem Relation Age of Onset ??? Heart Failure Maternal Grandmother ??? Diabetes Maternal Grandmother ??? Heart Failure Maternal Grandfather History Social History ??? Marital Status: Spouse [...] ??? Not on file Social History Narrative Review of Systems Review of Systems Gastrointestinal: Positive for nausea, vomiting and constipation. Negative for diarrhea. Genitourinary: Pt denies cramping. Pt denies spotting. All other systems reviewed and are negative. Physical Exam BP 136/92 Pulse 114 Temp(Src) 97.9 ??F Resp 22 Ht 1.651 m (5' 5 ) Wt 55.792 kg (123 lb) BMI 20.47 kg/m2 SpO2 97% Physical Exam Constitutional: She is oriented to person, place, and time. She appears well- developed and well-nourished. HENT: Head: Normocephalic and atraumatic. Right Ear: External ear normal. Left Ear: External ear normal. Nose: Nose normal. Mouth/Throat: Oropharynx is clear and moist. Eyes: Conjunctivae and EOM are normal. Pupils are equal, round, and reactive to light. Neck: Normal range of motion. Neck supple. Cardiovascular: Normal rate and regular rhythm. Pulmonary/Chest: Effort normal and breath sounds normal. Abdominal: Soft. Bowel sounds are normal. Musculoskeletal: Normal range of motion. Neurological: She is alert and oriented to person, place, and time. She has normal reflexes. Skin: Skin is warm and dry. Psychiatric: She has a normal mood and affect. Her behavior is normal. Thought content normal. Nursing note and vitals reviewed. Medications Current Outpatient Prescriptions Medication Sig Dispense Refill ??? ondansetron, disintegrating, (ZOFRAN ODT) 4 MG tablet Take 1 Tab by mouth every 6 hours as needed for Nausea/Vomiting. Allow tablet to dissolve on the tongue 20 Tab 0 ??? promethazine (PHENERGAN) 25 MG tablet Take 25 mg by mouth every 6 hours as needed for Nausea/Vomiting. ??? docusate sodium (COLACE) 100 MG capsule Take 100 mg by mouth once daily. ??? ondansetron, disintegrating, (ZOFRAN ODT) 8 MG tablet Take 1 Tab by mouth every 4 hours as needed for Nausea/Vomiting. Allow tablet to dissolve on the tongue 20 Tab 0 Procedures Procedures ECG Interpretation ECG Interpretation Lab Interpretation Oxygen Saturation Interpretation The oxygen saturation level is: 97%. The patient was on Room Air for the saturation measurement. Measurement frequency: Spot Check. Oxygen saturation interpretation is Normal. Intervention(s) used: None. Results for orders placed during the hospital encounter of 06/14/14 INFLUENZA A+B ANTIGEN RAPID Result Value Range Influenza A Ag Negative Negative Influenza B Ag Negative Negative CBC W AUTO DIFFERENTIAL Result Value Range WBC 12.4 (*) 4.0-10.0 x10^9/L RBC 4.59 3.93-5.22 x10^12/L Hgb 14.1 11.2-15.7 gm/dL HCT 39.8 34.1-44.9 % MCV 86.7 78.0-100.0 fl MCH 30.7 25.6-34.0 pg MCHC 35.4 32.3-36.5 gm/dL RDW 11.9 11.6-14.4 % MPV 10.2 9.4-12.[address] 225 163-369 x10^9/L Neutro 81.0 (*) 40.0-75.0 % Lymph 13.0 (*) 19.3-53.1 % [place] 5.5 4.7-12.5 % Eos 0.1 (*) 0.7-7.0 % Baso 0.2 0.1-1.2 % Immature Grans 0.2 0-0.5 % Neutro Abs 10.08 (*) 1.56-6.13 x10^9/L Lymph Abs 1.62 1.18-3.74 x10^9/L [place] Abs 0.69 0.24-0.86 x10^9/L Eosin Abs 0.01 (*) 0.04-0.54 x10^9/L Baso Abs 0.02 0.01-0.08 x10^9/L Immature Grans Abs 0.02 0-0.03 x10^9/L NRBC Auto 0 <=0 /100 WBC NRBC ABS Blood Auto 0.00 <=0 x10^9/L COMPREHENSIVE METABOLIC PANEL Result Value Range Glucose 90 70-125 mg/dL Sodium 135 (*) 136-145 mmol/L Potassium 3.4 3.4-4.5 mmol/L Chloride 103 98-107 mmol/L CO2 17 (*) 22-29 mmol/L Calcium 10.07 8.4-10.2 mg/dL Anion Gap 18 10-20 mmol/L BUN 7.7 (*) 9.8-20.1 mg/dL Creatinine 0.63 0.57-1.11 mg/dL eGFR MDRD >60 >60 mL/min/1.73m2 eGFR MDRD AFR AMR >60 >60 mL/min/1.73m2 Alk Phos 37 (*) 40-150 U/L ALT/SGPT 25 5-55 U/L AST/SGOT 24 5-34 U/L Protein Total 7.4 6.4-8.3 gm/dL Albumin 4.6 3.5-5.0 gm/dL Globulin Total 2.8 2.6-4.0 gm/dL Alb/Glob Ratio 1.6 0.9-1.6 Bili Total 0.7 0.2-1.2 mg/dL URINALYSIS ROUTINE W/REFLEX TO CULTURE Result Value Range Color UA Yellow Clarity UA Clear Glucose UA 3+ (*) Negative Bili UA Negative Negative Ketone UA 2+ (*) Negative Specific Ingalls UA 1.015 1.005-1.030 pH UA 6.0 5.0-8.0 pH Protein UA Negative Negative Urobilinogen UA 0.2 0.2-1.0 EU/dL Nitrite UA Positive (*) Negative Blood UA 2+ (*) Negative Leukocyte UA Negative Negative Urine Microscopy Urine microscopy to follow Reflex Status Culture to follow URINALYSIS MICROSCOPIC ONLY W/REFLEX CULTURE Result Value Range RBC UA 2-5 (*) None , 0-2 # /hpf WBC UA 0-2 None , 0-2, 2-5 # /hpf Bacteria UA 3+ (*) None Seen, Trace Epithelial Cell UA 2-5 0-2, 2-5, 5-10 KETONES QUALITATIVE URINE AUTO Result Value Range Ketone UA Negative Negative Progress Notes 12:04 AM: Discussed with pt plan to obtain labs. Pt understands and agrees with plan. ED Course Medical Decision Making I have reviewed the: Nursing Notes and Vitals. I have interpreted the following results: Labs and Oxygen Saturation. Orders Placed This Encounter ??? INFLUENZA A+B ANTIGEN RAPID ??? CULTURE URINE ??? CBC W AUTO DIFFERENTIAL ??? COMPREHENSIVE METABOLIC PANEL ??? URINALYSIS ROUTINE W/REFLEX TO CULTURE ??? URINALYSIS MICROSCOPIC ONLY W/REFLEX CULTURE ??? KETONES QUALITATIVE URINE AUTO ??? 0.9% NaCl IV Bolus ??? ondansetron (ZOFRAN) injection 8 mg ??? metoclopramide (REGLAN) injection 10 mg ??? dextrose 5% and lactated ringers 1,000 mL infusion ??? dextrose 5% and lactated ringers 1,000 mL infusion ??? dextrose 5% and lactated ringers infusion ??? ondansetron, disintegrating, (ZOFRAN ODT) 4 MG tablet Diagnosis: Final diagnoses: Hyperemesis gravidarum New Medications: New Prescriptions ONDANSETRON, DISINTEGRATING, (ZOFRAN ODT) 4 MG TABLET Take 1 Tab by mouth every 6 hours as needed for Nausea/Vomiting. Allow tablet to dissolve on the tongue I have advised follow-up with: [facility] [address], [address] [facility] [phone] As needed PATIENT DISCHARGED HOME IN GOOD CONDITION I have reviewed the information recorded by the scribe and agree with its accuracy and contents--Dr. Sam 06/15/2014 4:47 AM Transcribed by Jeevan Mcgrath--acting as scribe on behalf of Dr. Sam 06/15/2014 4:47 AM EM OPERATOR * Tara Jimenez, RN - 06/14/2014 11:25 PM CST Patient 8 weeks . Has had nausea and vomiting for last few weeks. Has a prescription for Zofran and phenergan but unable to keep down. Lethargic. Dizzy. EM OPERATOR * Zee Sylvester, RN - 06/14/2014 11:01 PM CST Patient 8 weeks and unable to keep anything down for the past 48 hours. EM OPERATOR documented in this encounter Plan of Treatment Upcoming Encounters Date Type Department Care Team (Late st Contact Info) Description 05/12/2024 9:30 AM SYSTEM OPERATOR Appointment [facility] Breast [address] [place] [address] Flaco Rosales MD [address] [place] [phone] 05/24/2024 7:00 AM SYSTEM OPERATOR Procedure visit [facility] [address] [place] [address] [place] [phone] 06/07/2024 9:45 AM SYSTEM OPERATOR Office Visit [facility] [address] [place] [address] Flaco Rosales MD [address] [facility] [phone] 07/11/2024 12:00 PM SYSTEM OPERATOR Video Visit [facility] - Family Medicine [address] [place] [address] Deb Montenegro MD [address] [place] [phone] documented as of this encounter Procedures Procedure Name Priority Date/Time Associated Diagnosis Comments KETONES QUALITATIVE URINE AUTO STAT 06/15/2014 4:16 AM SYSTEM OPERATOR URINE MICROSCOPIC ONLY REFLEX TO CULTURE STAT 06/15/2014 2:06 AM SYSTEM OPERATOR URINALYSIS REFLEX MICROSCOPIC REFLEX CULTURE STAT 06/15/2014 2:06 AM SYSTEM OPERATOR CULTURE URINE STAT 06/15/2014 2:06 AM SYSTEM OPERATOR INFLUENZA A+B ANTIGEN RAPID STAT 06/15/2014 12:39 AM SYSTEM OPERATOR CBC W AUTO DIFFERENTIAL STAT 06/14/2014 11:41 PM SYSTEM OPERATOR COMPREHENSIVE METABOLIC PANEL STAT 06/14/2014 11:41 PM SYSTEM OPERATOR documented in this encounter Results * KETONES QUALITATIVE URINE AUTO (06/15/2014 4:16 AM SYSTEM OPERATOR) Ketone UA Negative Negative 06/15/2014 4:31 AM SYSTEM OPERATOR [facility] Urine URINE / Unknown 06/15/2014 4 :16 AM SYSTEM OPERATOR 06/15/2014 4:21 AM SYSTEM OPERATOR Faustino Sam DO LAB - URINALYSIS ORD ERABLES [facility] [address] [place], [place] [id number] [place] [address] * (ABNORMAL) URINALYSIS MICROSCOPIC ONLY W/REFLEX CULTURE (06/15/2014 2:06 AM SYSTEM OPERATOR) RBC UA 2-5(A) None , 0-2 # /hpf 06/15/2014 2:32 AM SYSTEM OPERATOR [facility] WBC UA 0-2 None , 0-2, 2-5 # /hpf 06/15/2014 2:32 AM SYSTEM OPERATOR [facility] Bacteria UA 3+(A) None Seen, Trace 06/15/2014 2:32 AM SYSTEM OPERATOR [facility] Epithelial Cell UA 2-5 0-2, 2-5, 5-10 06/15/2014 2:32 AM SYSTEM OPERATOR [facility] Urine URINE SPECIMEN OBTAINED BY CLEAN CATCH PROCEDURE / Unknown 06/15/2014 2:06 AM SYSTEM OPERATOR 06/15/2014 2:16 AM SYSTEM OPERATOR Narrative AM [facility] - 06/15/2014 2:32 AM SYSTEM OPERATOR Bacteria, epithelial cells, mucus, and crystals are reported as quantity/HPF. Kiley Escamilla APRN-THEATRE PROFESSOR LAB - URINALYSIS OR DERABLES [facility] [address] * (ABNORMAL) CULTURE URINE (06/15/2014 2:06 AM SYSTEM OPERATOR) Culture >100,000 CFU/mL Escherichia coli(A) GEOR[place]IE 06/17/2014 8:42 AM SYSTEM OPERATOR [facility] Urine URINE SPECIMEN OBTAINED BY CLEAN CATCH PROCEDURE / Unknown 06/15/2014 2:06 AM SYSTEM OPERATOR 06/15/2014 2:16 AM SYSTEM OPERATOR Narrative Organism Antibiotic Method Susceptibility Escherichia coli [...] coli Trimethoprim-sulfamethoxazole GEORGIE <=2 ug/mL: Susceptible [facility] - MICROBIOLOGY ORDERABLES [facility] [address] * (ABNORMAL) URINALYSIS ROUTINE W/REFLEX TO CULTURE (06/15/2014 2:06 AM SYSTEM OPERATOR) Color UA Yellow 06/15/2014 2:32 AM SYSTEM OPERATOR [facility] Clarity UA Clear 06/15/2014 2:32 AM SYSTEM OPERATOR [facility] Glucose UA 3+(A) Negative 06/15/2014 2:32 AM SYSTEM OPERATOR [facility] Bilirubin UA Negative Negative 06/15/2014 2:32 AM SYSTEM OPERATOR [facility] Ketone UA 2+(A) Negative 06/15/2014 2:32 AM [facility] Specific Ingalls UA 1.015 1.005 - 1.030 06/15/2014 2:32 AM SYSTEM OPERATOR [facility] pH UA 6.0 5.0 - 8.0 pH 06/15/2014 2:32 AM SYSTEM OPERATOR [facility] Protein UA Negative Negative 06/15/2014 2:32 AM SYSTEM OPERATOR [facility] Urobilinogen UA 0.2 0.2 - 1.0 EU/dL 06/15/2014 2:32 AM SYSTEM OPERATOR [facility] Nitrite UA Positive(A) Negative 06/15/2014 2:32 AM [facility] Blood UA 2+(A) Negative 06/15/2014 2:32 AM [facility] Leukocyte UA Negative Negative 06/15/2014 2:32 AM SYSTEM OPERATOR [facility] Urine Microscopy Urine microscopy to follow 06/15/2014 2:32 AM [facility] Reflex Status Culture to follow 06/15/2014 2:32 AM [facility] Urine URINE SPECIMEN OBTAINED BY CLEAN CATCH PROCEDURE / Unknown 06/15/2014 2:06 AM SYSTEM OPERATOR 06/15/2014 2:16 AM SYSTEM OPERATOR Kiley [facility] LAB - URINALYSIS OR DERABLES [facility] [address] [place] [address], [facility] * INFLUENZA A+B ANTIGEN RAPID (06/15/2014 12:39 AM SYSTEM OPERATOR) Influenza A Antigen Negative Negative 06/15/2014 1:13 AM [facility] Influenza B Antigen Negative Negative 06/15/2014 1:13 AM [facility] Microbiology NASOPHARYNGEAL SWAB / Unknown 06/15/2014 12:39 AM SYSTEM OPERATOR 06/15/2014 12:44 AM SYSTEM OPERATOR Faustino Sam DO LAB - MICROBIOLOGY O RDERABLES [facility] [address] * (ABNORMAL) COMPREHENSIVE METABOLIC PANEL (06/14/2014 11:41 PM SYSTEM OPERATOR) Pathologist [facility] Glucose 90 70 - 125 mg/dL 06/15/2014 12:21 AM [facility] Sodium 135(L) 136 - 145 mmol/L 06/15/2014 12:21 AM [facility] Potassium 3.4 3.4 - 4.5 mmol/L 06/15/2014 12:21 AM [facility] Chloride 103 98 - 107 mmol/L 06/15/2014 12:21 AM [facility] CO2 17(L) 22 - 29 mmol/L 06/15/2014 12:21 AM [facility] Calcium 10.07 8.4 - 10.2 mg/dL 06/15/2014 12:21 AM [facility] Anion Gap 18 10 - 20 mmol/L 06/15/2014 12:21 AM [facility] BUN 7.7(L) 9.8 - 20.1 mg/dL 06/15/2014 12:21 AM [facility] Creatinine 0.63 0.57 - 1.11 mg/dL 06/15/2014 12:21 AM [facility] eGFR by MDRD >60 >60 mL/min/1.7 3m2 06/15/2014 12:21 AM [facility] eGFR by MDRD >60 >60 mL/min/1.7 3m2 06/15/2014 12:21 AM [facility] Alkaline Phosphatase 37(L) 40 - 150 U/L 06/15/2014 12:21 AM [facility] ALT 25 5 - 55 U/L 06/15/2014 12:21 AM [facility] AST 24 5 - 34 U/L 06/15/2014 12:21 AM [facility] Protein Total 7.4 6.4 - 8.3 gm/dL 06/15/2014 12:21 AM [facility] Albumin 4.6 3.5 - 5.0 gm/dL 06/15/2014 12:21 AM [facility] Globulin Total 2.8 2.6 - 4.0 gm/dL 06/15/2014 12:21 AM [facility] Albumin/Globulin Ratio 1.6 0.9 - 1.6 06/15/2014 12:21 AM [facility] Bilirubin Total 0.7 0.2 - 1.2 mg/dL 06/15/2014 12:21 AM [facility] Blood BLOOD SPECIMEN / Unknown 06/14/2014 11:41 PM SYSTEM OPERATOR 06/14/2014 11:54 PM SYSTEM OPERATOR Kiley Escamilla METAL PRECISION MACHINE ASSEMBLER-THEATRE PROFESSOR LAB - CHEMISTRY ORD ERABLES Performing Organization Address City/State/[facility] Co de Phone Number [facility] [address] * (ABNORMAL) CBC W AUTO DIFFERENTIAL (06/14/2014 11:41 PM SYSTEM OPERATOR) WBC 12.4(H) 4.0 - 10.0 x10^9/L 06/15/2014 12:01 AM [facility] RBC 4.59 3.93 - 5.22 x10^12/L 06/15/2014 12:01 AM [facility] Hemoglobin 14.1 11.2 - 15.7 gm/dL 06/15/2014 12:01 AM [facility] Hematocrit 39.8 34.1 - 44.9 % 06/15/2014 12:01 AM [facility] MCV 86.7 78.0 - 100.0 fl 06/15/2014 12:01 AM [facility] MCH 30.7 25.6 - 34.0 pg 06/15/2014 12:01 AM [facility] MCHC 35.4 32.3 - 36.5 gm/dL 06/15/2014 12:01 AM [facility] RDW 11.9 11.6 - 14.4 % 06/15/2014 12:01 AM [facility] MPV 10.2 9.4 - 12.4 fl 06/15/2014 12:01 AM [facility] Platelet Count 225 163 - 369 x10^9/L 06/15/2014 12:01 AM [facility] Neutrophils % 81.0(H) 40.0 - 75.0 % 06/15/2014 12:01 AM [facility] Lymphocytes % 13.0(L) 19.3 - 53.1 % 06/15/2014 12:01 AM [facility] Monocytes % 5.5 4.7 - 12.5 % 06/15/2014 12:01 AM [facility] Eosinophils % 0.1(L) 0.7 - 7.0 % 06/15/2014 12:01 AM [facility] Basophils % 0.2 0.1 - 1.2 % 06/15/2014 12:01 AM [facility] Immature Granulocytes 0.2 0 - 0.5 % 06/15/2014 12:01 AM [facility] Neutrophil Absolute 10.08(H) 1.56 - 6.13 x10^9/L 06/15/2014 12:01 AM [facility] Lymphocytes Absolute 1.62 1.18 - 3.74 x10^9/L 06/15/2014 12:01 AM [facility] Monocytes Absolute 0.69 0.24 - 0.86 x10^9/L 06/15/2014 12:01 AM [facility] Eosinophils Absolute 0.01(L) 0.04 - 0.54 x10^9/L 06/15/2014 12:01 AM [facility] Basophils Absolute 0.02 0.01 - 0.08 x10^9/L 06/15/2014 12:01 AM [facility] Immature Granulocytes Absolute 0.02 0 - 0.03 x10^9/L 06/15/2014 12:01 AM [facility] nRBC Auto 0 <=0 /100 WBC 06/15/2014 12:01 AM [facility] nRBC Absolute 0.00 <=0 x10^9/L 06/15/2014 12:01 AM [facility] Blood BLOOD SPECIMEN / Unknown 06/14/2014 11:41 PM SYSTEM OPERATOR 06/14/2014 11:54 PM [facility] Kiley Escamilla APRN-THEATRE PROFESSOR LAB - HEMATOLOGY OR DERABLES [facility] [place] [address], [facility] documented in this encounter Visit Diagnoses Diagnosis Hyperemesis gravidarum (HCC) Mild hyperemesis gravidarum, unspecified as to episode of care documented in this encounter Administered Medications Inactive Administered Medications - up to 3 most recent administrations Medication Order MAR Action Action Date Dose Rate Site 0.9% NaCl IV Bolus 1,000 mL, ONCE, 1 dose, On Linda 06/14/14 at 2345 $ Given 06/14/2014 11:51 PM SYSTEM OPERATOR 1,000 mL dextrose 5% and lactated ringers 1,000 mL infusion 1,000 mL, Intravenous, ONCE, 1 dose, On Wed06/15/14 at 0030 $ Given 06/15/2014 12:33 AM SYSTEM OPERATOR 1,000 mL dextrose 5% and lactated ringers 1,000 mL infusion 1,000 mL, Intravenous, ONCE, 1 dose, On Wed06/15/14 at 0130 $ Given 06/15/2014 3:01 AM SYSTEM OPERATOR 1,000 mL metoclopramide (REGLAN) injection 10 mg 10 mg, Intravenous, ONCE, 1 dose, On Wed06/15/14 at 0030 $ Given 06/15/2014 12:36 AM SYSTEM OPERATOR 10 mg ondansetron (ZOFRAN) injection 8 mg 8 mg, Intravenous, ONCE, 1 dose, On Linda 06/14/14 at 2345 $ Given 06/14/2014 11:50 PM SYSTEM OPERATOR 8 mg documented in this encounter Active and Recently Administered Medications Times are shown in SYSTEM OPERATOR. Scheduled Medication Order 06/13/2014 06/14/2014 06/15/2014 0.9% NaCl IV Bolus (COMPLETED) 1,000 mL, ONCE, 1 dose, On Linda 06/14/14 at 2345 2351 ($ Given - Provider: Tara Jimenez RN) 0301 (Rx Stopped - Provider: Tara Jimenez RN) dextrose 5% and lactated ringers 1,000 mL infusion (COMPLETED) 1,000 mL, Intravenous, ONCE, 1 dose, On Wed06/15/14 at 0030 0033 ($ Given - Provider: Dwain Escudero RN)0302 (Rx Stopped - Provider: Tara Jimenez, NANCY) dextrose 5% and lactated ringers 1,000 mL infusion (COMPLETED) 1,000 mL, Intravenous, ONCE, 1 dose, On Wed06/15/14 at 0130 0301 ($ Given - Provider: Tara Jimenez, NANCY) metoclopramide (REGLAN) injection 10 mg (COMPLETED) 10 mg, Intravenous, ONCE, 1 dose, On Wed06/15/14 at 0030 0036 ($ Given - Provider: Dwain Escudero RN) ondansetron (ZOFRAN) injection 8 mg (COMPLETED) 8 mg, Intravenous, ONCE, 1 dose, On Linda 06/14/14 at 2345 2350 ($ Given - Provider: Tara Jimenez RN) documented in this encounter
--- OUTSIDE RECORDS SUMMARY | 2024-05-04 16:51 | XMS_ITS | Encounter Summary ---
Author Organization [facility] Address [address] [place] [address] Care Team Providers Care Strawhat Inspector And Packer Name Role Phone Unavailable Primary Care Provider Unavailabl e Reason for Visit * Reason Comments Fever Vomiting Encounter Details Date Type Department Care Team (Late st Contact Info) Description 05/29/2014 10:37 PM PROCUREMENT BUYER - 05/30/2014 1:17 AM PROCUREMENT BUYER Emergency ER at [address] [address] Nausea With Vomiting; (HCC); Febrile illness Discharge Disposition: Home or Self Care Social History Tobacco Use Types Packs/Day Years Used Date Smoking Tobacco: Every Day Cigarettes Alcohol Use Standard Drinks/Week Comments Yes 0 (1 standard drink = 0.6 oz pur e alcohol) occasional Sex and Gender Information Value Date Recorded Sex Assigned at Not on file Gender Identity Not on file Sexual Orientation Not on file documented as of this encounter Last Filed Vital Signs Vital Sign Reading Time Taken Comments Blood Pressure 125/80 05/29/2014 10:43 PM PROCUREMENT BUYER Pulse - - Temperature 36.9 ??C (98.5 ??F) 05/29/2014 10:[address] Respiratory Rate 16 05/29/2014 10:43 PM PROCUREMENT BUYER Oxygen Saturation 100% 05/30/2014 12:56 AM PROCUREMENT BUYER Inhaled Oxygen Concentration - - Weight 58.1 kg (128 lb) 05/29/2014 10:43 PM PROCUREMENT BUYER Height 167.6 cm (5' 5.98 ) 05/29/2014 10:[address] Body Mass Index 20.67 05/29/2014 10:43 PM PROCUREMENT BUYER documented in this encounter Discharge Instructions * Discharge Instructions* Willow Hebert - 05/30/2014 12:25 AM PROCUREMENT BUYER Images from the original note were not included. ABCs of A Antepartum care is very important. Be sure you see your doctor and get care as soon as youthink you are . At this time, you will be tested for infection, genetic abnormalities and potential problems with you and the . This is the time to discuss diet, exercise, work, medications, labor, pain medication during labor and the possibility of a delivery. Ask any questions that may concern you. It is important to see your doctor regularly throughout your .Avoid exposure to toxic substances and chemicals - such as cleaning solvents, lead and mercury, some insecticides, and paint. women should avoid exposure to paint fumes, and fumes that causeyou to feel ill, dizzy or faint. When possible, it is a good idea to have a pre- consultation with your caregiver to begin some important recommendations your caregiver suggests such as, taking folic acid, exercising, quitting smoking, avoiding alcoholic beverages, etc. B is the healthiest choice for both you and your baby. It has many nutritional benefitsfor the baby and health benefits for the mother. It also creates a very tight and loving kulkarni between the baby and mother. Talk to your doctor, your family and friends, and your employer about how you choose to feed your baby and how they can support you in your decision. Not all defects can be prevented, but a woman can take actions that may increase her chance of having a healthy baby. Many defects happen very early in , sometimes before a woman even knows she is . defects or abnormalities of any child in your or the father's family should be discussed with your caregiver. Get a good support bra as your breast size changes. Wear it especially when you exercise and when nursing. C Celebrate the news of your with the your spouse/father and family. Childbirth classes arehelpful to take for you and the spouse/father because it helps to understand what happens during the , labor and delivery. delivery should be discussed with your doctor so you are prepared for that possibility. The pros and cons of circumcision if it is a boy, should be discussed with your functional tester. Cigarette smoking during can result in low weight babies. Ithas been associated with infertility, miscarriages, tubal pregnancies, infant (mortality) andpoor health (morbidity) in childhood. Additionally, cigarette smoking may cause long-term learning disabilities. If you smoke, you should try to quit before getting and not smoke during the . Secondary smoke may also harm a mother and her developing baby. It is a good idea to ask people to stop smoking around you during your and after the baby is born. Extra calcium is necessary when you are and is found in your vitamin, in dairy products, green leafy vegetables and in calcium supplements. D A healthy diet according to your current weight and height, along with vitamins and mineral supplements should be discussed with your caregiver. Domestic abuse or violence should be made known to your doctor right away to get the situation corrected. Drink more water when you exercise to keep hydrated. Discomfort of your back and legs usually develops and progresses from the middle of the second trimester through to delivery of the baby. This is because of the enlarging baby and uterus, which may also affect your balance. Do not take illegal drugs. Illegal drugs can seriously harm the baby and you. Drink extra fluids (water is best) throughout to help your body keep up with the increases in your blood volume. Drink at least 6 to 8 glasses of water, fruit juice, or milk each day.A good way to know you are drinking enough fluid is when your urine looks almost like clear water or is very light yellow. E Eat healthy to get the nutrients you and your unborn baby need. Your meals should include the five basic food groups. Exercise (30 minutes of light to moderate exercise a day) is important and encouraged during , if there are no medical problems or problems with the . Exercise that causes discomfort or dizziness should be stopped and reported to your caregiver. Emotions during can change from being ecstatic to depression and should be understood by you, your partner and your family. F screening with ultrasound, amniocentesis and monitoring during and labor is common and sometimes necessary. Take 400 micrograms of folic acid daily both before, when possible, and during the first few months of to reduce the risk of defects of the brain and spine. All women who could possibly become should take a vitamin with folic acid, every day. It is also important to eat a healthy diet with fortified foods (enriched grain products, including cereals, rice, breads, and pastas) and foods with natural sources of folate (orange juice, green leafy vegetables, beans, peanuts, broccoli, asparagus, peas, and lentils). The father should be involved with all aspects of the including, the care, childbirth classes, labor, delivery, and time. Fathers may also have emotional concerns about being a father, financial needs, andraising a family. G Genetic testing should be done appropriately. It is important to know your family and the father's history. If there have been problems with pregnancies or defects in your family, report these to your doctor. Also, genetic counselors can talk with you about the information you might need in making decisions about having a family. You can call a major medical center in your area for help in finding a board-certified genetic counselor. Genetic testing and counseling should be done before when possible, especially if there is a history of problems in the mother's or father's family. Certain ethnic backgrounds are more at risk for genetic defects. H Get familiar with the hospital where you will be having your baby. Get to know how long it takes toget there, the labor and delivery area, and the hospital procedures. Be sure your medical insuranceis accepted there. Get your home ready for the baby including, clothes, the baby's room (when possible), furniture and car seat. Hand washing is important throughout the day, especially after handling raw meat and poultry, changing the baby's diaper or using the bathroom. This can help prevent the spread of many bacteria and viruses that cause infection. Your hair may become dry and thinner, but will return to normal a few weeks after the baby is born. Heartburn is a common problem that can be treated by taking antacids recommended by your caregiver, eating smaller meals 5 or 6 times a day, not drinking liquids when eating, drinking between meals and raising the head of your bed 2 to 3 inches. I Insurance to cover you, the baby, doctor and hospital should be reviewed so that you will be prepared to pay any costs not covered by your insurance plan. If you do not have medical insurance, there are usually clinics and services available for you in your community. Take 30 milligrams of iron during your as prescribed by your doctor to reduce the risk of low red blood cells (anemia) la ter in . All women of childbearing age should eat a diet rich in iron. J There should be a joint effort for the mother, father and any other children to adapt to the financially, emotionally, and psychologically during the . Join a support group for moms-to-be. Or, join a class on parenting or childbirth. Have the family participate when possible. K Know your limits. Let your caregiver know if you experience any of the following: ?? Pain of any kind. ?? Strong cramps. ?? You develop a lot of weight in a short period of time (5 pounds in 3 to 5 days). ?? Vaginal bleeding, leaking of amniotic fluid. ?? Headache, vision problems. ?? Dizziness, fainting, shortness of breath. ?? Chest pain. ?? Fever of 102?? F (38.9?? C) or higher. ?? Gush of clear fluid from your vagina. ?? Painful urination. ?? Domestic violence. ?? Irregular heartbeat (palpitations). ?? Rapid beating of the heart (tachycardia). ?? Constant feeling sick to your stomach (nauseous) and vomiting. ?? Trouble walking, fluid retention (edema). ?? Muscle weakness. ?? If your baby has decreased activity. ?? Persistent diarrhea. ?? Abnormal vaginal discharge. ?? Uterine contractions at 20-minute intervals. ?? Back pain that travels down your leg. L Learn and practice that what you eat and drink should be in moderation and healthy for you and yourbaby. Legal drugs such as alcohol and caffeine are important issues for women. There is nosafe amount of alcohol a woman can drink while . alcohol syndrome, a disorder characterized by growth retardation, facial abnormalities, and central nervous system dysfunction, is caused by a woman's use of alcohol during . Caffeine, found in tea, coffee, soft drinks and chocolate, should also be limited. Be sure to read labels when trying to cut down on caffeine during . More than 200 foods, beverages, and liqt-iku-cfadwws medications contain caffeine and have ahigh salt content! There are coffees and teas that do not contain caffeine. M Medical conditions such as diabetes, epilepsy, and high blood pressure should be treated and kept under control before when possible, but especially during . Ask your caregiver about any medications that may need to be changed or adjusted during . If you are currently taking any medications, ask your caregiver if it is safe to take them while you are or beforegetting when possible. Also, be sure to discuss any herbs or vitamins you are taking. Theyare medicines, too! Discuss with your doctor all medications, prescribed and wddo-ekq-xukjatc, thatyou are taking. During your visit, discuss the medications your doctor may give you duringlabor and delivery. N Never be afraid to ask your doctor or caregiver questions about your health, the progress of the , family problems, stressful situations, and recommendation for a functional tester, if you do nothave one. It is better to take all precautions and discuss any questions or concerns you may have during your office visits. It is a good idea to write down your questions before you visit the doctor. O Jkxj-zob-xlwshlc cough and cold remedies may contain alcohol or other ingredients that should be avoided during . Ask your caregiver about prescription, herbs or zxmg-vxz-nnyzfeu medicationsthat you are taking or may consider taking while . P Physical activity during can benefit both you and your baby by lessening discomfort and fatigue, providing a sense of well-being, and increasing the likelihood of early recovery after delivery. Light to moderate exercise during strengthens the belly (abdominal) and back muscles. This helps improve posture. Practicing yoga, walking, swimming, and cycling on a stationary bicycleare usually safe exercises for women. Avoid scuba diving, exercise at high altitudes ([id number] feet), skiing, horseback riding, contact sports, etc. Always check with your doctor before beginning any kind of exercise, especially during and especially if you did not exercise before getting . Q Queasiness, stomach upset and morning sickness are common during . Eating a couple of crackers or dry toast before getting out of bed. Foods that you normally love may make you feel sick to your stomach. You may need to substitute other nutritious foods. Eating 5 or 6 small meals a day instead of 3 large ones may make you feel better. Do not drink with your meals, drink between meals. Questions that you have should be written down and asked during your visits. R Read about and make plans to baby-proof your home. There are important tips for making your home a safer environment for your baby. Review the tips and make your home safer for you and your baby. Read food labels regarding calories, salt and fat content in the food. S Saunas, hot tubs, and steam rooms should be avoided while you are . Excessive high heat maybe harmful during your . Your caregiver will screen and examine you for sexually transmitted diseases and genetic disorders during your visits. Learn the signs of labor. Sexual relations while is safe unless there is a medical or problem and your caregiver advises against it. T Traveling long distances should be avoided especially in the third trimester of your . If you do have to travel out of state, be sure to take a copy of your medical records and medical insurance plan with you. You should not travel long distances without seeing your doctor first. Most airlines will not allow you to travel after 36 weeks of . Toxoplasmosis is an infection caused by a parasite that can seriously harm an unborn baby. Avoid eating undercooked meat and handling catlitter. Be sure to wear gloves when gardening. Tingling of the hands and fingers is not unusual andis due to fluid retention. This will go away after the baby is born. U Womb (uterus) size increases during the first trimester. Your kidneys will begin to function more efficiently. This may cause you to feel the need to urinate more often. You may also leak urine when sneezing, coughing or laughing. This is due to the growing uterus pressing against your bladder, which lies directly in front of and slightly under the uterus during the first few months of . If you experience burning along with frequency of urination or bloody urine, be sure to tell your doctor. The size of your uterus in the third trimester may cause a problem with your balance. It is advisable to maintain good posture and avoid wearing high heels during this time. An ultrasound of your baby may be necessary during your and is safe for you and your baby. V Vaccinations are an important concern for women. Get needed vaccines before . Center for Disease Control (www.cdc.gov) has clear guidelines for the use of vaccines during .Review the list, be sure to discuss it with your doctor. vitamins are helpful and healthy for you and the baby. Do not take extra vitamins except what is recommended. Taking too much of certain vitamins can cause overdose problems. Continuous vomiting should be reported to your caregiver. Varicose veins may appear especially if there is a family history of varicose veins. They should subside after the delivery of the baby. Support hose helps if there is leg discomfort. W Being overweight or underweight during may cause problems. Try to get within 15 pounds ofyour ideal weight before . Remember, is not a time to be dieting! Do not stop eating or start skipping meals as your weight increases. Both you and your baby need the calories and nutrition you receive from a healthy diet. Be sure to consult with your doctor about your diet. There is a formula and diet plan available depending on whether you are overweight or underweight. Your caregiver or grape crusher can help and advise you if necessary. X Avoid X-rays. If you must have dental work or diagnostic tests, tell your dentist or physician thatyou are so that extra care can be taken. X- rays should only be taken when the risks of nottaking them outweigh the risk of taking them. If needed, only the minimum amount of radiation should be used. When X-rays are necessary, protective lead baker should be used to cover areas of the body that are not being X-rayed. Y Your baby loves you. your baby creates a loving and very close kulkarni between the two of you. Give your baby a healthy environment to live in while you are . Infants and children require constant care and guidance. Their health and safety should be carefully watched at all times. After the baby is born, rest or take a nap when the baby is sleeping. Z Get your ZZZs. Be sure to get plenty of rest. Resting on your side as often as possible, especiallyon your left side is advised. It provides the best circulation to your baby and helps reduce swelling. Try taking a nap for 30 to 45 minutes in the afternoon when possible. After the baby is born rest or take a nap when the baby is sleeping. Try elevating your feet for that amount of time when possible. It helps the circulation in your legs and helps reduce swelling. Most information courtesy of the CDC. Document Released: 05/03/2006 Document Revised: 07/25/2012 Document Reviewed: 01/15/2010 ExitCare?? Patient Information ??2014 [employer]. Nausea and Vomiting Nausea is a sick feeling that often comes before throwing up (vomiting). Vomiting is a reflex wherestomach contents come out of your mouth. Vomiting can cause severe loss of body fluids (dehydration). Children and elderly adults can become dehydrated quickly, especially if they also have diarrhea.Nausea and vomiting are symptoms of a condition or disease. It is important to find the cause of your symptoms. CAUSES ?? Direct irritation of the stomach lining. This irritation can result from increased acid production (gastroesophageal reflux disease), infection, food poisoning, taking certain medicines (such as nonsteroidal anti-inflammatory drugs), alcohol use, or tobacco use. ?? Signals from the brain.??These signals could be caused by a headache, heat exposure, an inner ear disturbance, increased pressure in the brain from injury, infection, a tumor, or a concussion, pain, emotional stimulus, or metabolic problems. ?? An obstruction in the gastrointestinal tract (bowel obstruction). ?? Illnesses such as diabetes, hepatitis, gallbladder problems, appendicitis, kidney problems, cancer, sepsis, atypical symptoms of a heart attack, or eating disorders. ?? Medical treatments such as chemotherapy and radiation. ?? Receiving medicine that makes you sleep (general anesthetic) during surgery. DIAGNOSIS Your caregiver may ask for tests to be done if the problems do not improve after a few days. Tests may also be done if symptoms are severe or if the reason for the nausea and vomiting is not clear. Tests may include: ?? Urine tests. ?? Blood tests. ?? Stool tests. ?? Cultures (to look for evidence of infection). ?? X-rays or other imaging studies. Test results can help your caregiver make decisions about treatment or the need for additional tests. TREATMENT You need to stay well hydrated. Drink frequently but in small amounts.??You may wish to drink water, sports drinks, clear broth, or eat frozen ice pops or gelatin dessert to help stay hydrated.??Whenyou eat, eating slowly may help prevent nausea.??There are also some antinausea medicines that may help prevent nausea. HOME CARE INSTRUCTIONS ?? Take all medicine as directed by your caregiver. ?? If you do not have an appetite, do not force yourself to eat. However, you must continue to drink fluids. ?? If you have an appetite, eat a normal diet unless your caregiver tells you differently. ?? Eat a variety of complex carbohydrates (rice, wheat, potatoes, bread), lean meats, yogurt, fruits, and vegetables. ?? Avoid high-fat foods because they are more difficult to digest. ?? Drink enough water and fluids to keep your urine clear or pale yellow. ?? If you are dehydrated, ask your caregiver for specific rehydration instructions. Signs of dehydration may include: ?? Severe thirst. ?? Dry lips and mouth. ?? Dizziness. ?? Dark urine. ?? Decreasing urine frequency and amount. ?? Confusion. ?? Rapid breathing or pulse. SEEK IMMEDIATE MEDICAL CARE IF: ?? You have blood or brown flecks (like coffee grounds) in your vomit. ?? You have black or bloody stools. ?? You have a severe headache or stiff neck. ?? You are confused. ?? You have severe abdominal pain. ?? You have chest pain or trouble breathing. ?? You do not urinate at least once every 8 hours. ?? You develop cold or clammy skin. ?? You continue to vomit for longer than 24 to 48 hours. ?? You have a fever. MAKE SURE YOU: ?? Understand these instructions. ?? Will watch your condition. ?? Will get help right away if you are not doing well or get worse. Document Released: 05/03/2006 Document Revised: 07/25/2012 Document Reviewed: 09/30/2011 ExitCare?? Patient Information ??2014 [employer]. . Fever, Adult A fever is a higher than normal body temperature. In an adult, an oral temperature around 98.6?? F (37?? C) is considered normal. A temperature of 100.4?? F (38?? C) or higher is generally considereda fever. Mild or moderate fevers generally have no long-term effects and often do not require treatment. Extreme fever (greater than or equal to 106?? F or 41.1?? C) can cause seizures. The sweating that may occur with repeated or prolonged fever may cause dehydration. Elderly people can develop confusion during a fever. A measured temperature can vary with: ?? Age. ?? Time of day. ?? Method of measurement (mouth, underarm, rectal, or ear). The fever is confirmed by taking a temperature with a thermometer. Temperatures can be taken different ways. Some methods are accurate and some are not. ?? An oral temperature is used most commonly. Electronic thermometers are fast and accurate. ?? An ear temperature will only be accurate if the thermometer is positioned as recommended by the marketing data specialist. ?? A rectal temperature is accurate and done for those adults who have a condition where an oral temperature cannot be taken. ?? An underarm (axillary) temperature is not accurate and not recommended. Fever is a symptom, not a disease. CAUSES ?? Infections commonly cause fever. ?? Some noninfectious causes for fever include: ?? Some arthritis conditions. ?? Some thyroid or adrenal gland conditions. ?? Some immune system conditions. ?? Some types of cancer. ?? A medicine reaction. ?? High doses of certain street drugs such as methamphetamine. ?? Dehydration. ?? Exposure to high outside or room temperatures. ?? Occasionally, the source of a fever cannot be determined. This is sometimes called a fever of unknown origin (FUO). ?? Some situations may lead to a temporary rise in body temperature that may go away on its own. Examples are: ?? Childbirth. ?? Surgery. ?? Intense exercise. HOME CARE INSTRUCTIONS ?? Take appropriate medicines for fever. Follow dosing instructions carefully. If you use acetaminophen to reduce the fever, be careful to avoid taking other medicines that also contain acetaminophen. Do not take aspirin for a fever if you are younger than age 19. There is an association with Donna's syndrome. Donna's syndrome is a rare but potentially deadly disease. ?? If an infection is present and antibiotics have been prescribed, take them as directed. Finish them even if you start to feel better. ?? Rest as needed. ?? Maintain an adequate fluid intake. To prevent dehydration during an illness with prolonged or recurrent fever, you may need to drink extra fluid.??Drink enough fluids to keep your urine clear or pale yellow. ?? Sponging or bathing with room temperature water may help reduce body temperature. Do not use icewater or alcohol sponge baths. ?? Dress comfortably, but do not over-bundle. SEEK MEDICAL CARE IF: ?? You are unable to keep fluids down. ?? You develop vomiting or diarrhea. ?? You are not feeling at least partly better after 3 days. ?? You develop new symptoms or problems. SEEK IMMEDIATE MEDICAL CARE IF: ?? You have shortness of breath or trouble breathing. ?? You develop excessive weakness. ?? You are dizzy or you faint. ?? You are extremely thirsty or you are making little or no urine. ?? You develop new pain that was not there before (such as in the head, neck, chest, back, or abdomen). ?? You have persistant vomiting and diarrhea for more than 1 to 2 days. ?? You develop a stiff neck or your eyes become sensitive to light. ?? You develop a skin rash. ?? You have a fever or persistent symptoms for more than 2 to 3 days. ?? You have a fever and your symptoms suddenly get worse. MAKE SURE YOU: ?? Understand these instructions. ?? Will watch your condition. ?? Will get help right away if you are not doing well or get worse. Document Released: 10/27/2001 Document Revised: 07/25/2012 Document Reviewed: 03/03/2012 ExitCare?? Patient Information ??2013 [employer]. UREMENT BUYER documented in this encounter Medications at Time of Discharge Medication Sig Dispensed Refills Start Date End Date ondansetron, disintegrating, (ZOFRAN ODT) 8 MG tablet Take 1 Tab by mouth every 4 hours as needed for Nausea/Vomiting. Allow tablet to dissolve on the tongue 20 Tab 0 05/30/2014 09/26/2014 documented as of this encounter ED Notes * Sena Watters, RN - 05/30/2014 1:17 AM CST Pt received discharge instructions and verbalized understanding. UREMENT BUYER * Rose Hood MD - 05/30/2014 12:04 AM CST 12:00 AM Assumed patient care from LILA Long, pending lab results. 12:22 AM Rechecked patient, discussed lab results, plan for discharge home, and follow-up with PCP.Patient understands and agrees with plan. Labs Reviewed CBC W AUTO DIFFERENTIAL - Abnormal; Notable for the following: WBC 10.9 (*) Hgb 15.8 (*) HCT 45.0 (*) Neutro 83.1 (*) Lymph 11.9 (*) [place] 4.6 (*) Eos 0.0 (*) Neutro Abs 9.05 (*) Eosin Abs 0.00 (*) All other components within normal limits COMPREHENSIVE METABOLIC PANEL - Abnormal; Notable for the following: CO2 18 (*) Calcium 10.48 (*) Anion Gap 22 (*) BUN 9.2 (*) Alk Phos 38 (*) Protein Total 8.4 (*) All other components within normal limits LIPASE BLOOD - Abnormal; Notable for the following: Lipase 4 (*) All other components within normal limits URINALYSIS ROUTINE W/REFLEX TO CULTURE - Abnormal; Notable for the following: Bili UA 1+ (*) Ketone UA 3+ (*) Protein UA 1+ (*) Blood UA Trace (*) All other components within normal limits URINALYSIS MICROSCOPIC ONLY W/REFLEX CULTURE - Abnormal; Notable for the following: RBC UA 2-5 (*) All other components within normal limits Narrative: Bacteria, epithelial cells, mucus, and crystals are reported as quantity/HPF. HCG URINE QUALITATIVE - POCT (IP) BEAKER - ILL - Abnormal; Notable for the following: HCG Qual Urine Positive (*) All other components within normal limits Diagnosis: Final diagnoses: Nausea with vomiting Febrile illness New Medications: New Prescriptions ONDANSETRON, DISINTEGRATING, (ZOFRAN ODT) 8 MG TABLET Take 1 Tab by mouth every 4 hours as needed for Nausea/Vomiting. Allow tablet to dissolve on the tongue I have advised the patient to follow-up with: [facility] [address] [place] [address], [facility] [address] [facility] [phone] Schedule an appointment as soon as possible for a visit in 2 days Disposition: Discharged Home I have reviewed the information recorded by the scribe and agree with its accuracy and contents--Dr. Hood 05/30/2014 12:27 AM Transcribed by Willow Hebert--acting scribe on behalf of Dr. Hood 05/30/2014 12:27 AM UREMENT BUYER * Sena Watters RN - 05/29/2014 11:56 PM CST at bedside. UREMENT BUYER * Helena Freedman APRN-SARAH - 05/29/2014 11:00 PM CST Provider contact with the patient: 05/29/2014 23:00 Karla Castaneda [id number] [facility] EMER[facility]ENCY [facility]PARTMENT History Chief Complaint Patient presents with ??? Fever ??? Vomiting HPI Comments: 24 year old female presents to ER with c/o fever, vomiting and body aches. She reports felt tired 2 days ago and then yesterday started with vomiting and fever. Vomiting The history is provided by the patient. This is a new problem. The current episode started 2 days ago. The problem occurs 5 to 10 times per day. The problem has not changed since onset.The emesis hasan appearance of stomach contents and bilious material. The maximum temperature recorded prior to her arrival was 101 - 101.9 F. The fever has been present for 1 - 2 days. Associated symptoms includea fever, abdominal pain (mild suprapubic), headaches, arthralgias, myalgias and cough (prior to vomiting).Pertinent negatives include no chills, no sweats or no diarrhea.Risk factors include ill contacts. No past medical history on file. Past [...] Social History Main Topics ??? Smoking status: Current Every Day Smoker -- 0.25 packs/day ??? Smokeless tobacco: Not on file ??? Alcohol Use: Yes Comment: occasional ??? Drug Use: No ??? Sexual Activity: Not on file Other Topics Concern ??? Not on file Social History Narrative Review of Systems Review of Systems Constitutional: Positive for fever and malaise/fatigue. Negative for chills. HENT: Positive for sore throat. Negative for congestion and ear pain. Respiratory: Positive for cough (prior to vomiting). Negative for sputum production. Cardiovascular: Negative for chest pain. Gastrointestinal: Positive for nausea, vomiting and abdominal pain (mild suprapubic). Negative for diarrhea and constipation. Genitourinary: Negative for dysuria, urgency, frequency and flank pain. Musculoskeletal: Positive for myalgias and arthralgias. Neurological: Positive for dizziness and headaches. Physical Exam BP 125/80 Temp(Src) 98.5 ??F Resp 16 Ht 1.676 m (5' 5.98 ) Wt 58.06 kg (128 lb) BMI 20.67kg/m2 SpO2 98% Physical Exam Constitutional: She is oriented to person, place, and time. She appears well- developed and well-nourished. HENT: Head: Normocephalic. Right Ear: External ear normal. Left Ear: External ear normal. Nose: Nose normal. Mouth/Throat: Oropharynx is clear and moist. Neck: Normal range of motion. Neck supple. Cardiovascular: Normal rate, regular rhythm and intact distal pulses. Pulmonary/Chest: Effort normal. Abdominal: Soft. Bowel sounds are normal. She exhibits no distension. There is no tenderness. Thereis no rebound and no guarding. Musculoskeletal: Normal range of motion. Neurological: She is alert and oriented to person, place, and time. Skin: Skin is warm and dry. Psychiatric: She has a normal mood and affect. Her behavior is normal. Nursing note and vitals reviewed. Medications No current outpatient prescriptions on file. Procedures Procedures ECG Interpretation ECG Interpretation Lab Interpretation Oxygen Saturation Interpretation The oxygen saturation level is: 98%. The patient was on Room Air for the saturation measurement. Measurement frequency: Spot Check. Oxygen saturation interpretation is Normal. Results for orders placed during the hospital encounter of 05/29/14 CBC W AUTO DIFFERENTIAL Result Value Range WBC 10.9 (*) 4.0-10.0 x10^9/L RBC 5.10 3.93-5.22 x10^12/L Hgb 15.8 (*) 11.2-15.7 gm/dL HCT 45.0 (*) 34.1-44.9 % MCV 88.2 78.0-100.0 fl MCH 31.0 25.6-34.0 pg MCHC 35.1 32.3-36.5 gm/dL RDW 12.1 11.6-14.4 % MPV 10.0 9.4-12.[address] 303 163-369 x10^9/L Neutro 83.1 (*) 40.0-75.0 % Lymph 11.9 (*) 19.3-53.1 % [place] 4.6 (*) 4.7-12.5 % Eos 0.0 (*) 0.7-7.0 % Baso 0.2 0.1-1.2 % Immature Grans 0.2 0-0.5 % Neutro Abs 9.05 (*) 1.56-6.13 x10^9/L Lymph Abs 1.30 1.18-3.74 x10^9/L [place] Abs 0.50 0.24-0.86 x10^9/L Eosin Abs 0.00 (*) 0.04-0.54 x10^9/L Baso Abs 0.02 0.01-0.08 x10^9/L Immature Grans Abs 0.02 0-0.03 x10^9/L NRBC Auto 0 <=0 /100 WBC NRBC ABS Blood Auto 0.00 <=0 x10^9/L Progress Notes 5014: transferred care to Dr. Hood awaiting lab results. ED Course Medical Decision Making I have reviewed the: Nursing Notes and Vitals. I have interpreted the following results: Labs. Orders Placed This Encounter ??? CBC W AUTO DIFFERENTIAL ??? COMPREHENSIVE METABOLIC PANEL ??? LIPASE BLOOD ??? URINALYSIS ROUTINE W/REFLEX TO CULTURE ??? URINALYSIS MICROSCOPIC ONLY W/REFLEX CULTURE ??? HCG URINE QUALITATIVE - POCT (IP) BEAKER - ILL ??? 0.9% NaCl IV Bolus ??? ondansetron (ZOFRAN) injection 4 mg Clinical Impression Final diagnoses: None vomiting UREMENT BUYER * Tejinder Ledezma RN - 05/29/2014 10:44 PM CST Pt presents to ED with c/o vomiting, fever, cough, and body aches x 2 days. Pt stats that she has been unable to keep fluids down. UREMENT BUYER documented in this encounter Plan of Treatment Upcoming Encounters Date Type Department Care Team (Late st Contact Info) Description 05/12/2024 9:30 AM PROCUREMENT BUYER Appointment [address] [place] [address] [phone] Flaco Rosales MD [address] [place] [address] [place] [phone] 05/24/2024 7:00 AM PROCUREMENT BUYER Procedure visit [facility] - RESIDENT CARE ASSISTANT [address] [place] [address] [place] [phone] 06/07/2024 9:45 AM PROCUREMENT BUYER Office Visit [facility] - RESIDENT CARE ASSISTANT [address] [place] [phone] Flaco Rosales MD [address] [place] [address] [place] [phone] 07/11/2024 12:00 PM PROCUREMENT BUYER Video Visit [facility] - Family Medicine [address] [facility] [place] [address] [place] [address] Deb Montenegro MD [address] [place] [phone] documented as of this encounter Procedures Procedure Name Priority Date/Time Associated Diagnosis Comments HCG URINE QUALITATIVE - POCT (IP) BEAKER - ILL STAT 05/29/2014 11:50 PM PROCUREMENT BUYER URINE MICROSCOPIC ONLY REFLEX TO CULTURE STAT 05/29/2014 11:34 PM PROCUREMENT BUYER URINALYSIS REFLEX MICROSCOPIC REFLEX CULTURE STAT 05/29/2014 11:34 PM PROCUREMENT BUYER CBC W AUTO DIFFERENTIAL STAT 05/29/2014 11:12 PM PROCUREMENT BUYER COMPREHENSIVE METABOLIC PANEL STAT 05/29/2014 11:12 PM PROCUREMENT BUYER LIPASE BLOOD STAT 05/29/2014 11:12 PM PROCUREMENT BUYER documented in this encounter Results * (ABNORMAL) HCG URINE QUALITATIVE - POCT (IP) BEAKER - ILL (05/29/2014 11:50 PM PROCUREMENT BUYER) HCG Qual Urine Positive(A) Negative [facility] POCT TESTING Lot # [id number] [facility] Expiration Date 08/2015 [facility] QC Verified Yes Yes [facility] POC T TESTING Urine specimen (specimen) URINE / Unknown 05/29/2014 11:50 PM PROCUREMENT BUYER Helena Freedman APRN-[facility] - POINT OF C ARE ORDERABLES Performing Organization Address City/[facility]/ZIP Co de Phone Number [facility] [address] * (ABNORMAL) URINALYSIS MICROSCOPIC ONLY W/REFLEX CULTURE (05/29/2014 11:34 PM PROCUREMENT BUYER) Pathologist [facility] RBC UA 2-5(A) None , 0-2 # /hpf 05/30/2014 12:19 AM PROCUREMENT BUYER [facility] WBC UA 0-2 None , 0-2, 2-5 # /hpf 05/30/2014 12:19 AM PROCUREMENT BUYER [facility] Bacteria UA None Seen None Seen, Trace 05/30/2014 12:19 AM PROCUREMENT BUYER [facility] Epithelial Cell UA 0-2 0-2, 2-5, 5-10 05/30/2014 12:19 AM PROCUREMENT BUYER [facility] Mucus UA 1+ 05/30/2014 12:19 AM PROCUREMENT BUYER [facility] Reflex Status Culture not indicated 05/30/2014 12:19 AM PROCUREMENT BUYER [facility] Urine URINE SPECIMEN OBTAINED BY CLEAN CATCH PROCEDURE / Unknown 05/29/2014 11:34 PM PROCUREMENT BUYER 05/29/2014 11:49 PM PROCUREMENT BUYER Narrative [facility] - 05/30/2014 12:19 AM PROCUREMENT BUYER Bacteria, epithelial cells, mucus, and crystals are reported as quantity/HPF. Helena Freedman APRN-[facility] - URINALYSIS ORDERABLES Performing Organization Address City/[facility]/ZIP Co de Phone Number [facility] [address] * (ABNORMAL) URINALYSIS ROUTINE W/REFLEX TO CULTURE (05/29/2014 11:34 PM PROCUREMENT BUYER) Color UA Yellow 05/30/2014 12:19 AM PROCUREMENT BUYER [facility] Clarity UA Clear 05/30/2014 12:19 AM [facility] Glucose UA Negative Negative 05/30/2014 12:19 AM PROCUREMENT BUYER [facility] Bilirubin UA 1+(A) Negative 05/30/2014 12:19 AM [facility] Ketone UA 3+(A) Negative 05/30/2014 12:19 AM [facility] Specific [place] UA >=1.030 1.005 - 1.030 05/30/2014 12:19 AM [facility] pH UA 6.0 5.0 - 8.0 pH 05/30/2014 12:19 AM [facility] Protein UA 1+(A) Negative 05/30/2014 12:19 AM [facility] Urobilinogen UA 0.2 0.2 - 1.0 EU/dL 05/30/2014 12:19 AM [facility] Nitrite UA Negative Negative 05/30/2014 12:19 AM [facility] Blood UA Trace(A) Negative 05/30/2014 12:19 AM [facility] Leukocyte UA Negative Negative 05/30/2014 12:19 AM [facility] Ictotest Negative Negative 05/30/2014 12:19 AM [facility] Urine Microscopy Urine microscopy to follow 05/30/2014 12:19 AM [facility] Reflex Status Culture not indicated 05/30/2014 12:19 AM [facility] Urine URINE SPECIMEN OBTAINED BY CLEAN CATCH PROCEDURE / Unknown 05/29/2014 11:34 PM PROCUREMENT BUYER 05/29/2014 11:49 PM PROCUREMENT BUYER Helena Freedman [facility] URINALYSIS ORDERABLES Performing Organization Address [facility] Co de Phone Number [facility] [address] [place], [place] [address] * (ABNORMAL) LIPASE BLOOD (05/29/2014 11:12 PM PROCUREMENT BUYER) Lipase 4(L) 8 - 78 U/L 05/30/2014 12:05 AM [facility] Blood BLOOD SPECIMEN / Unknown 05/29/2014 11:12 PM PROCUREMENT BUYER 05/29/2014 11:47 PM PROCUREMENT BUYER Helena Freedman [facility] - CHEMISTRY ORDERABLES [facility] [address] [place] [address], [facility] * (ABNORMAL) COMPREHENSIVE METABOLIC PANEL (05/29/2014 11:12 PM [facility]) Glucose 91 70 - 125 mg/dL 05/30/2014 12:05 AM [facility] Sodium 140 136 - 145 mmol/L 05/30/2014 12:05 AM [facility] Potassium 3.8 3.4 - 4.5 mmol/L 05/30/2014 12:05 AM [facility] Chloride 104 98 - 107 mmol/L 05/30/2014 12:05 AM [facility] CO2 18(L) 22 - 29 mmol/L 05/30/2014 12:05 AM [facility] Calcium 10.48(H) 8.4 - 10.2 mg/dL 05/30/2014 12:05 AM [facility] Anion Gap 22(H) 10 - 20 mmol/L 05/30/2014 12:05 AM [facility] BUN 9.2(L) 9.8 - 20.1 mg/dL 05/30/2014 12:05 AM [facility] Creatinine 0.70 0.57 - 1.11 mg/dL 05/30/2014 12:05 AM [facility] eGFR by MDRD >60 >60 mL/min/1. 73m2 05/30/2014 12:05 AM [facility] eGFR by MDRD >60 >60 mL/min/1. 73m2 05/30/2014 12:05 AM [facility] Alkaline Phosphatase 38(L) 40 - 150 U/L 05/30/2014 12:05 AM [facility] ALT 19 5 - 55 U/L 05/30/2014 12:05 AM [facility] AST 20 5 - 34 U/L 05/30/2014 12:05 AM [facility] Protein Total 8.4(H) 6.4 - 8.3 gm/dL 05/30/2014 12:05 AM [facility] Albumin 5.0 3.5 - 5.0 gm/dL 05/30/2014 12:05 AM [facility] Globulin Total 3.4 2.6 - 4.0 gm/dL 05/30/2014 12:05 AM [facility] Albumin/Globulin Ratio 1.5 0.9 - 1.6 05/30/2014 12:05 AM [facility] Bilirubin Total 0.9 0.2 - 1.2 mg/dL 05/30/2014 12:05 AM [facility] Blood BLOOD SPECIMEN / Unknown 05/29/2014 11:12 PM PROCUREMENT BUYER 05/29/2014 11:47 PM PROCUREMENT BUYER Helenanatan Castanedaon HAND COOPER HELPER-[facility] - CHEMISTRY ORDERABLES [facility] [address] * (ABNORMAL) CBC W AUTO DIFFERENTIAL (05/29/2014 11:12 PM [facility]) WBC 10.9(H) 4.0 - 10.0 x10^9/L 05/29/2014 11:44 PM [facility] RBC 5.10 3.93 - 5.22 x10^12/L 05/29/2014 11:44 PM [facility] Hemoglobin 15.8(H) 11.2 - 15.7 gm/dL 05/29/2014 11:44 PM [facility] Hematocrit 45.0(H) 34.1 - 44.9 % 05/29/2014 11:44 PM [facility] MCV 88.2 78.0 - 100.0 fl 05/29/2014 11:44 PM [facility] MCH 31.0 25.6 - 34.0 pg 05/29/2014 11:44 PM [facility] MCHC 35.1 32.3 - 36.5 gm/dL 05/29/2014 11:44 PM [facility] RDW 12.1 11.6 - 14.4 % 05/29/2014 11:44 PM [facility] MPV 10.0 9.4 - 12.4 fl 05/29/2014 11:44 PM [facility] Platelet Count 303 163 - 369 x10^9/L 05/29/2014 11:44 PM [facility] Neutrophils % 83.1(H) 40.0 - 75.0 % 05/29/2014 11:44 PM [facility] Lymphocytes % 11.9(L) 19.3 - 53.1 % 05/29/2014 11:44 PM [facility] Monocytes % 4.6(L) 4.7 - 12.5 % 05/29/2014 11:44 PM [facility] Eosinophils % 0.0(L) 0.7 - 7.0 % 05/29/2014 11:44 PM [facility] Basophils % 0.2 0.1 - 1.2 % 05/29/2014 11:44 PM [facility] Immature Granulocytes 0.2 0 - 0.5 % 05/29/2014 11:44 PM [facility] Neutrophil Absolute 9.05(H) 1.56 - 6.13 x10^9/L 05/29/2014 11:44 PM [facility] Lymphocytes Absolute 1.30 1.18 - 3.74 x10^9/L 05/29/2014 11:44 PM [facility] Monocytes Absolute 0.50 0.24 - 0.86 x10^9/L 05/29/2014 11:44 PM [facility] Eosinophils Absolute 0.00(L) 0.04 - 0.54 x10^9/L 05/29/2014 11:44 PM [facility] Basophils Absolute 0.02 0.01 - 0.08 x10^9/L 05/29/2014 11:44 PM [facility] Immature Granulocytes Absolute 0.02 0 - 0.03 x10^9/L 05/29/2014 11:44 PM [facility] nRBC Auto 0 <=0 /100 WBC 05/29/2014 11:44 PM [facility] nRBC Absolute 0.00 <=0 x10^9/L 05/29/2014 11:44 PM [facility] Blood BLOOD SPECIMEN / Unknown 05/29/2014 11:12 PM PROCUREMENT BUYER 05/29/2014 11:41 PM PROCUREMENT BUYER Helena Freedman APRN-[facility] - HEMATOLOGY ORDERABLES [facility] [address] [place] [address], [facility] documented in this encounter Visit Diagnoses Diagnosis Nausea with vomiting (HCC) Febrile illness Fever, unspecified documented in this encounter Administered Medications Inactive Administered Medications - up to 3 most recent administrations Medication Order MAR Action Action Date Dose Rate Site 0.9% NaCl IV Bolus 1,000 mL, Administer over 60 Minutes, ONCE, 1 dose, On Wed05/29/14 at 2315 $ Given 05/29/2014 11:35 PM PROCUREMENT BUYER 1,000 mL 0.9% NaCl IV Bolus 1,000 mL, Administer over 30 Minutes, ONCE, 1 dose, On Wed05/30/14 at 0030 $ Given 05/30/2014 1:09 AM PROCUREMENT BUYER 1,000 mL ondansetron (ZOFRAN) injection 4 mg 4 mg, Intravenous, NOW, 1 dose, On Wed05/29/14 at 2315 $ Given 05/29/2014 11:34 PM PROCUREMENT BUYER 4 mg documented in this encounter Active and Recently Administered Medications Times are shown in PROCUREMENT BUYER. Scheduled Medication Order 05/28/2014 05/29/2014 05/30/2014 0.9% NaCl IV Bolus (COMPLETED) 1,000 mL, Administer over 60 Minutes, ONCE, 1 dose, On Wed05/29/14 at 2315 2335 ($ Given - Provider: Sena Watters RN) 0035 (Due: Rx Stopped - Provider: Sena Watters RN) 0.9% NaCl IV Bolus (COMPLETED) 1,000 mL, Administer over 30 Minutes, ONCE, 1 dose, On Wed05/30/14 at 0030 0109 ($ Given - Provider: Sena Watters, NANCY)0112 (Rx Stopped - Provider: Sena Watters, RN) ondansetron (ZOFRAN) injection 4 mg (COMPLETED) 4 mg, Intravenous, NOW, 1 dose, On Wed05/29/14 at 2315 2334 ($ Given - Provider: Sena Watters, NANCY) documented in this encounter
== END 2024-04-30 08:28 | disposition home or self-care (01) ==
PROVIDERS: Emergency Provider Nurse Practitioner Family
DX: H10.9 Unspecified conjunctivitis (principal)
CPT/HCPCS: 99213; G0463